=== PATIENT | female | born 1935 | race Caucasian/White ===

== ENCOUNTER 2018-09-17 16:30 | Inpatient (IN) ==
[2018-09-17 17:05] LABS: Basophils % 0.4 % (0.1-2.0); Eosinophils # 0.1 K/mm3 (0.0-0.4); Hematocrit 33.4 % (37.0-47.0); Hemoglobin 10.6 g/dL (12.2-16.2); Lymphocytes # 0.8 K/mm3 (0.7-4.5); Lymphocytes % 10.2 % (10-50); Mean Corpuscular HGB Conc 31.8 g/dL (31.8-35.4); Mean Corpuscular Hemoglobin 30.7 pg (27.0-31.2); Mean Corpuscular Volume 96.5 fl (81-99); Mean Platelet Volume 7.5 fl (7.4-10.4); Monocytes # 0.7 K/mm3 (0.1-1.0); Monocytes % 9.5 % (1.7-9.3); Neutrophils # 5.9 K/mm3 (1.8-7.8); Neutrophils % 78.7 % (37.0-80.0); Platelet Count 204 K/mm3 (142-424); Red Blood Count 3.46 M/mm3 (4.20-5.40); Red Cell Distribution Width 14.2 % (11.5-17.5); White Blood Count 7.5 K/mm3 (4.8-10.8)
--- NOTE | 2018-09-17 17:15 | Emergency Department Note ---
ED Disposition Clinical Impression: Pneumonia, Altered mental status Disposition: Admitted as Observation Condition on Discharge: Good Instructions: DI for Altered Mental Status Referrals: Ramesh Nix MD [Primary Care Provider] - Time of Disposition: 17:49 - Critical Care Critical Care Time: No Attestation: On 09/17/18, the high probability of a clinically significant, sudden or life threatening deterioration of the following system(s) required my full and direct attention, intervention and personal management. The time I documented below is in addition to time spent performing reported procedures but includes the following listed in this critical care notation. Medical Decision Making - Darci Inquiry Pt receiving controlled substance: No Darci was queried for this patient: No Vital Signs: 09/17/18 16:32 09/17/18 17:28 09/17/18 17:33 Temperature 102.6 F H Temperature Source Rectal Pulse Rate [Right Radial] 82 80 Respiratory Rate 20 Blood Pressure [Right Arm] 130/61 110/60 Blood Pressure Mean [Right Arm] 84 76 Blood Pressure Source [Right Arm] Automatic Cuff Blood Pressure Position [Right Arm] Supine 02 Sat by Pulse Oximetry 94 L 90 L - Lab Data Lab Results 09/17/18 16:30: WBC 7.5, RBC 3.46 L, Hgb 10.6 L, Hct 33.4 L, MCV 96.5, MCH 30.7, MCHC 31.8, RDW 14.2, Plt Count 204, MPV 7.5, Neut % (Auto) 78.7, Lymph % (Auto) 10.2, [place] % (Auto) 9.5 H, Eos % (Auto) 1.0, Baso % (Auto) 0.4, Neut # (Auto) 5.9, Lymph # (Auto) 0.8, [place] # (Auto) 0.7, Eos # (Auto) 0.1, Baso # (Auto) 0.0 09/17/18 16:30: Sodium 143, Potassium 4.5, Chloride 110 H, Carbon Dioxide 25, Anion Gap 12.5, BUN 19 H, Creatinine 1.61 H, Estimated Creat Clear 37, Estimated GFR 30 L, Est GFR ( Amer) 37 L, Glucose 109 H, Calcium 9.8, Total Bilirubin 0.3, AST 12 L, ALT 12, Alkaline Phosphatase 134 H, Total Protein 5.9 L , Albumin 2.7 L, Globulin 3.2, Albumin/Globulin Ratio 0.8 L 09/17/18 16:30: B-Natriuretic Peptide 436 H 09/17/18 16:30: Lactate 0.8 09/17/18 17:32: Urine Color Yellow, Urine Appearance Clear, Urine pH 6.0, Ur Specific [place] 1.020, Urine Protein Negative, Urine Glucose (UA) Negative, Urine Ketones Negative, Urine Blood Negative, Urine Nitrate Negative, Urine Bilirubin Negative, Urine Urobilinogen 0.2, Ur Leukocyte Esterase Trace Result diagrams: 09/17/18 16:30 09/17/18 16:30 Orders (Tests/Meds): ED MEDICATIONS Generic Name Dose Route Start Last Admin Trade Name Freq PRN Reason Stop Dose Admin Ceftriaxone Sodium 2 gm/ 50 mls @ 100 mls/hr 09/17/18 17:30 09/17/18 17:30 Sodium Chloride IV 10/01/18 17:29 100 mls/hr Q24H BRENNA Administration Protocol Sodium Chloride 10 ml 09/17/18 16:41 Saline Flush 10ml Syringe IV 10/17/18 16:40 NEEDED PRN Maintain IV Site Discontinued Medications Generic Name Dose Route Start Last Admin Trade Name Freq PRN Reason Stop Dose Admin Acetaminophen 650 mg 09/17/18 17:08 09/17/18 17:15 Acetaminophen 325mg Tab PO 09/17/18 17:09 650 mg ONCE ONE Administration Albuterol/Ipratropium 3 ml 09/17/18 17:28 09/17/18 17:46 Duoneb 3ml Neb IH 09/17/18 17:29 3 ml ONCE ONE Administration Azithromycin 500 mg 09/17/18 17:20 Zithromax 250mg Tablet PO 09/17/18 17:21 ONCE ONE Protocol Methylprednisolone Sodium Succinate 125 mg 09/17/18 17:28 Solu-Medrol 125mg/2ml Vial IV 09/17/18 17:29 ONCE ONE ORDERS Category Date Time Status Influenza A&B Antigens, Rapid [Rapid Influenza A&B Lab 09/17/18 17:17 Ordered Antigens] Stat UA [Urinalysis and Microscopic] Stat Lab 09/17/18 17:32 Ordered Blood Culture Stat Micro 09/17/18 16:30 Received ECG Request by /Nse Stat Y 09/17/18 16:41 Ordered General Adult HPI - General Chief complaint: Altered Mental Status Stated complaint: AMS Time Seen by Provider: 09/17/18 16:32 Mode of Arrival: EMS Limitations: Altered Mental Status Description of Symptoms (Recalled from ER Triage Doc. by RN): EMS stated that per [facility] living, patient was found to be 80% saturation on room air this morning (doesn't usually wear o2), is somewhat confused, and has increased edema in all extremities. Pt is oriented to person only and states that she is no pain at this time and has no complaints. Pt's O2 saturation was 86% on RA upon arrival, placed on 2L NC and she is now 93%. - History of Present Illness HPI narrative: fever, indicators of systemic infection, patient actually has no complaints - Related Data Home Medications Medication Instructions Recorded Confirmed acetaminophen 325 mg tablet 325 mg PO Q4-6H PRN 12/14/17 06/28/18 aspirin 81 mg tablet,delayed 81 mg PO DAILY tab 12/14/17 09/17/18 release atorvastatin 20 mg tablet 20 mg PO HS 30 Days #30 12/14/17 09/17/18 cholecalciferol (vitamin D3) 2,000 2,000 unit PO DAILY cap 12/14/17 09/17/18 unit capsule doxazosin 2 mg tablet 2 mg PO HS 30 Days #30 12/14/17 09/17/18 lansoprazole 15 mg capsule,delayed 15 mg PO DAILY 30 Days #30 12/14/17 09/17/18 release losartan 100 mg tablet 100 mg PO DAILY 30 Days #30 12/14/17 09/17/18 memantine 28 mg capsule 28 mg PO DAILY 30 Days #30 12/14/17 09/17/18 sprinkle,extended release 24hr nadolol 40 mg tablet 40 mg PO DAILY 30 Days #30 12/14/17 09/17/18 polyethylene glycol 3350 17 17 g PO Q10M 12/14/17 09/17/18 gram/dose oral powder potassium chloride ER 10 mEq 10 meq PO DAILY 14 Days #14 12/14/17 09/17/18 tablet,extended release Allergies Allergy/AdvReac Type Severity Reaction Status Date / Time Penicillins [PENICILLINS] Allergy Mild Verified 09/17/18 17:15 [facility] History - Hepatitis A Screen Drug use history?: No High risk sexual behaviors?: No History of sexually transmitted infection?: No Currently employed?: No Childcare worker?: No Do you have indoor plumbing?: No Do you have electricity?: Yes Attestation statement:: This patient has been screened for Hepatitis A risk factors. Medical History: Reports:: Arrhythmia, Cancer, Dementia, Hyperlipidemia, Hypertension, Internal Pacemaker, Urinary Tract Infection Other Medical History: Reports: Anemia, Arthritis, Cataracts Laterality Cases: Right: Lumpectomy, Bilateral: Other Other Surgeries: Yes: Pacemaker, Other Amputation: No Fractures: No - Social History Smoking Status: Never smoker Alcohol Intake: never Alcohol Intake Frequency:: other Substance Use Type: denies use Occupational Status: retired Housing: [facility] Family Hx:: Hyperlipidemia, Hypertension ROS Obtained: Yes All systems reviewed & no additional complaints - Constitutional Constitutional: Reports system reviewed and no additional complaints, except as docu, Reports chills, Denies fever(s), Denies lethargy, Denies weakness - Eyes Eyes: Reports system reviewed and no additional complaints, except as docu, Denies eye pain - ENT Ears, Nose, Mouth, and Throat: Reports system reviewed and no additional complaints, except as docu, Reports sore throat, Reports throat swelling - Cardiovascular Cardiovascular: Reports system reviewed and no additional complaints, except as docu, Denies chest pain, Denies chest pain at rest, Denies dyspnea, Denies pedal edema, Denies rapid heart rate, Denies slow heart rate - Respiratory Respiratory: Yes system reviewed and no additional complaints, except as docu, No chest congestion, No cough, No non-productive cough - Gastrointestinal Gastrointestingal: Denies: abdominal pain, diarrhea, nausea, vomiting - Genitourinary Female Genitourinary: Reports system reviewed and no additional complaints, except as docu, Denies dysuria, Denies flank pain - Musculoskeletal Musculoskeletal: Reports system reviewed and no additional complaints, except as docu, Denies joint pain, Denies joint swelling, Denies muscle weakness, Denies stiffness - Integumentary/Breasts Skin/Breast: Reports system reviewed and no additional complaints, except as docu, Denies rash, Denies skin pain, Reports skin swelling - Neurologic Neurologic: Reports system reviewed and no additional complaints, except as docu, Denies behavioral changes, Denies headache(s), Denies lack of coordination, Denies numbness, Denies other visual disturbances, Denies seizure- like activity, Denies syncope - Hematologic/Lymphatic Henatologic/Lymphatic: Reports system reviewed and no additional complaints, except as docu, Denies easy bleeding, Denies easy bruising, Denies lymphadenopathy Physical Exam - General General appearance: alert, in no apparent distress - Head Head exam: atraumatic, normocephalic, normal inspection - Eye Eye exam: Present: normal appearance, PERRL, EOMI - ENT ENT exam: Present: normal exam, normal oropharynx, mucous membranes moist, TM's normal bilaterally, normal external ear exam - Neck Neck exam: Present: normal inspection, full ROM, trachea midline. Absent: meningismus, lymphadenopathy - Chest Chest inspection: Present: normal inspection, symmetric chest wall rise. Absent: tenderness, rash - Respiratory Respiratory exam: Present: wheezes, other (rhonchi in bases, L greater than R). Absent: normal lung sounds bilaterally, respiratory distress - Cardiovascular Cardiovascular exam: Present: regular rate, normal rhythm, +S2. Absent: JVD - Abdominal Exam Abdominal exam: Present: soft. Absent: distention, tenderness, guarding, rebound, rigidity, ascites, mass - Extremities Exam Extremities exam: Present: full ROM, pedal edema. Absent: normal inspection, tenderness, normal capillary refill, joint swelling, calf tenderness - Neurological Exam Neurological exam: Present: alert, oriented X3 - Skin Skin exam: Present: warm, dry, intact, normal color, other (2+ peripheral edema, pitting) - Lymphatic Lymphatic Findings: no adenopathy
[2018-09-17 17:17] LABS: Albumin Level 2.7 gm/dL (3.4-5.0); Albumin/Globulin Ratio 0.8 (1.1-1.8); Anion Gap 12.5 mEq/L (5-15); Bilirubin,Total 0.3 mg/dL (0.2-1.0); Calcium 9.8 mg/dL (8.5-10.1); Globulin 3.2 gm/dl (1.3-3.2); Potassium 4.5 mmoL/L (3.5-5.1); Total Protein,Serum 5.9 gm/dL (6.4-8.2)
[2018-09-17 17:42] LABS: Appearance,Urine CLEAR (Clear); Bilirubin,Urine Negative (Negative); Blood, Urine Negative (Negative); Color,Urine YELLOW (Yellow); Glucose,Urine (UA) Negative (Negative); Ketones,Urine Negative (Negative); Leukocyte Esterase,Urine TRACE (Negative); Microscopic, Urine URINE MICROSCOPIC (MICROSCOPIC); Protein,Urine Negative (Negative); Urobilinogen,Urine 0.2 EU/dl (0.2)
[2018-09-17 17:53] LABS: Bacteria,Urine Trace /lpf
[2018-09-18 06:13] LABS: Basophils % 0.1 % (0.1-2.0); Hemoglobin 10.6 g/dL (12.2-16.2); Lymphocytes # 0.7 K/mm3 (0.7-4.5); Lymphocytes % 8.1 % (10-50); Mean Corpuscular HGB Conc 30.5 g/dL (31.8-35.4); Mean Corpuscular Hemoglobin 30.2 pg (27.0-31.2); Mean Corpuscular Volume 99.1 fl (81-99); Mean Platelet Volume 7.4 fl (7.4-10.4); Monocytes # 0.3 K/mm3 (0.1-1.0); Monocytes % 3.4 % (1.7-9.3); Neutrophils # 7.2 K/mm3 (1.8-7.8); Neutrophils % 88.3 % (37.0-80.0); Platelet Count 205 K/mm3 (142-424); Red Blood Count 3.53 M/mm3 (4.20-5.40); Red Cell Distribution Width 14.1 % (11.5-17.5); White Blood Count 8.1 K/mm3 (4.8-10.8)
[2018-09-18 06:47] LABS: Anion Gap 11.9 mEq/L (5-15); Calcium 9.4 mg/dL (8.5-10.1); Potassium 4.9 mmoL/L (3.5-5.1)
--- NOTE | 2018-09-18 07:37 | Pharmacy Consult Notes ---
[facility] Pharmacy VTE Monitoring - Patient Demographics Admission date: 09/17/18 Report Date: 09/18/18 Time: 07:37 Allergies/Adverse Reactions: Patient Allergies Penicillins [PENICILLINS] Allergy (Mild, Verified 09/17/18 17:15) Height: 1.63 m Weight: 92 kg Patient Problems: Current Active Problems Pneumonia (Acute) Altered mental status (Acute) - VTE Risk Labs: VTE Related Lab Results Hgb 10.6 g/dL (12.2-16.2) L 09/18/18 05:35 Hct 35.0 % (37.0-47.0) L 09/18/18 05:35 Plt Count 205 K/mm3 (142-424) 09/18/18 05:35 BUN 19 mg/dL (7-18) H 09/18/18 05:35 Creatinine 1.50 mg/dL (0.55-1.02) H 09/18/18 05:35 Estimated Creat Clear 40 mL/min (50-200) 09/18/18 05:35 Was VTE Risk Assessment Performed: Yes VTE Score: 3 VTE Risk Level: Low Risk - Prophylaxis VTE Prophylaxis Ordered?: Yes Types of VTE Prophylaxis: TEDS Knee High Location of Applied Device: Bilateral Lower Extremeties - VTE Diagnosis Confirmed Treatment or plan recommended: Continue Current Treatment
[2018-09-18 07:49] LABS: Lymphocytes % 7 % (10-50); Monocytes % 3 % (2-9); Neutrophils % 89 % (42-76); Total Cells Counted 100
--- NOTE | 2018-09-18 09:41 | History & Physical Report ---
*Admission Date: 09/17/18 *Chief complaint: Hypoxia with altered mental status *History of present illness: Ms. Carrera is an 83-year-old female who is a resident of assisted living at [place] who was sent to [facility] emergency room when found to have O2 sats low in the 80s on room air and with altered mental status. Patient had fallen out of bed earlier in the day and denied any discomfort or injury. O2 sats improved to 93% in the emergency room on oxygen. With evaluation in the emergency room patient was felt to have pneumonia and was admitted for further evaluation and treatment. This a.m. patient denies chest pain, shortness of breath, and cough. She answers no to all questions asked. Patient noted to have had a fever and wheezing through out the night. O2 sats have been satisfactory on nasal O2 at 2 L/min [facility] History Medical History: Reports:: Arrhythmia, Cancer (Breast), Dementia, Gastroesophageal Reflux Disease(GERD), Hyperlipidemia, Hypertension, Internal Pacemaker, Peripheral Vascular Disease, Renal Insufficiency, Urinary Tract Infection Denies:: Diabetes Mellitus Type 2 Have you ever received a pneumonia vaccine?: Yes Have you received a flu vaccine this season?: Yes Other Medical History: Reports: Anemia, Arthritis, Cataracts Comment:: DVT bilateral legs; Goiter Laterality Cases: Right: Lumpectomy, Bilateral: Cataract, Other Other Surgeries: Yes: Cholecystectomy, Colonoscopy, Pacemaker, Other Amputation: No Fractures: No - *Social History Educational Level: Completed Graduate School Smoking Status: Never smoker Alcohol Intake: never Alcohol Intake Frequency:: other Substance Use Type: denies use Occupational Status: retired Housing: assisted living facility Household Members: caregiver, other Travel in the last 8 weeks: None - Psychiatric History Expresses thoughts of harming self/others: None Suicide Plan Description: No Plan *Family Hx:: Hyperlipidemia, Hypertension Review of Systems - Constitutional Reports fever(s), Denies headache(s) - ENT Denies ear pain, Denies sore throat - *Cardiovascular Denies chest pain, Denies leg pain with activity, Denies shortness of breath, Denies generalized swelling - *Respiratory Reports cough, Denies chest congestion, Denies shortness of breath - *Gastrointestinal Denies abdominal pain, Denies nausea, Denies vomiting - *Genitourinary Denies difficulty urinating - *Musculoskeletal Denies abnormal walking Comments: Fell out of bed yesterday a.m. - *Neurologic Reports frequent falls, Denies abnormal speech, Denies behavioral changes, Denies dizziness, Denies headache(s), Denies lack of coordination, Denies numbness, Denies other visual disturbances, Denies seizure-like activity, Denies fainting, Denies weakness Meds Home Medications Medication Instructions Recorded Confirmed Type acetaminophen 325 mg tablet 650 mg PO Q4HP PRN 12/14/17 09/18/18 History atorvastatin 20 mg tablet 20 mg PO HS 30 Days #30 12/14/17 09/17/18 History cholecalciferol (vitamin D3) 2,000 2,000 unit PO DAILY cap 12/14/17 09/17/18 History unit capsule doxazosin 2 mg tablet 2 mg PO HS 30 Days #30 12/14/17 09/17/18 History lansoprazole 15 mg capsule,delayed 15 mg PO DAILY 30 Days #30 12/14/17 09/17/18 History release losartan 100 mg tablet 100 mg PO DAILY 30 Days #30 12/14/17 09/17/18 History memantine 28 mg capsule 28 mg PO DAILY 30 Days #30 12/14/17 09/17/18 History sprinkle,extended release 24hr nadolol 40 mg tablet 40 mg PO DAILY 30 Days #30 12/14/17 09/17/18 History polyethylene glycol 3350 17 17 gm PO DAILY 12/14/17 09/18/18 History gram/dose oral powder potassium chloride ER 10 mEq 10 meq PO DAILY 14 Days #14 12/14/17 09/17/18 History tablet,extended release Ferrous Sulfate [Ferrous Sulfate 325 mg PO DAILY 09/17/18 09/17/18 History 325mg Tablet] Aspirin [Aspirin 325mg Tab] 325 mg PO HS 09/18/18 09/18/18 History Melatonin/Pyridoxine HCl (B6) 1 each PO HSP PRN 09/18/18 09/18/18 History [Melatonin 1 mg Tablet] Ondansetron HCl [Ondansetron 4mg 4 mg PO Q8HP PRN 09/18/18 09/18/18 History Tablet] Allergies Allergy/AdvReac Type Severity Reaction Status Date / Time Penicillins [PENICILLINS] Allergy Mild Verified 09/17/18 17:15 Exam Vital signs and Labs for Last 24 Hours: Temp Pulse Resp BP Pulse Ox 97.9 F 70 18 146/76 H 93 L 09/18/18 08:00 09/18/18 08:00 09/18/18 08:00 09/18/18 08:00 09/18/18 08:00 Laboratory Results - last 24 hr 09/17/18 16:30: WBC 7.5, RBC 3.46 L, Hgb 10.6 L, Hct 33.4 L, MCV 96.5, MCH 30.7, MCHC 31.8, RDW 14.2, Plt Count 204, MPV 7.5, Neut % (Auto) 78.7, Lymph % (Auto) 10.2, [place] % (Auto) 9.5 H, Eos % (Auto) 1.0, Baso % (Auto) 0.4, Neut # (Auto) 5.9, Lymph # (Auto) 0.8, [place] # (Auto) 0.7, Eos # (Auto) 0.1, Baso # (Auto) 0.0 09/17/18 16:30: Sodium 143, Potassium 4.5, Chloride 110 H, Carbon Dioxide 25, Anion Gap 12.5, BUN 19 H, Creatinine 1.61 H, Estimated Creat Clear 37, Estimated GFR 30 L, Est GFR ( Amer) 37 L, Glucose 109 H, Calcium 9.8, Total Bilirubin 0.3, AST 12 L, ALT 12, Alkaline Phosphatase 134 H, Total Protein 5.9 L , Albumin 2.7 L, Globulin 3.2, Albumin/Globulin Ratio 0.8 L 09/17/18 16:30: B-Natriuretic Peptide 436 H 09/17/18 16:30: Lactate 0.8 09/17/18 17:32: Urine Color Yellow, Urine Appearance Clear, Urine pH 6.0, Ur Specific [place] 1.020, Urine Protein Negative, Urine Glucose (UA) Negative, Urine Ketones Negative, Urine Blood Negative, Urine Nitrate Negative, Urine Bilirubin Negative, Urine Urobilinogen 0.2, Ur Leukocyte Esterase Trace, Urine RBC None, Urine WBC 5-10, Ur Squamous Epith Cells 5-10, Urine Bacteria Trace 09/17/18 23:40: Influenza Type A Ag Negative, Influenza Type B Ag Negative 09/18/18 05:35: WBC 8.1, RBC 3.53 L, Hgb 10.6 L, Hct 35.0 L, MCV 99.1 H, MCH 30.2, MCHC 30.5 L, RDW 14.1, Plt Count 205, MPV 7.4, Neut % (Auto) 88.3 H, Lymph % (Auto) 8.1 L, [place] % (Auto) 3.4, Eos % (Auto) 0.0 L, Baso % (Auto) 0.1, Neut # (Auto) 7.2, Lymph # (Auto) 0.7, [place] # (Auto) 0.3, Eos # (Auto) 0.0, Baso # (Auto) 0.0, Total Counted 100, Neutrophils % (Manual) 89 H, Band Neutrophils % 1.0, Lymphocytes % (Manual) 7 L, Monocytes % (Manual) 3, Platelet Estimate Normal 09/18/18 05:35: Sodium 144, Potassium 4.9, Chloride 112 H, Carbon Dioxide 25, Anion Gap 11.9, BUN 19 H, Creatinine 1.50 H, Estimated Creat Clear 40, Estimated GFR 33 L, Est GFR ( Amer) 40 L, Glucose 150 H D, Calcium 9.4 I & O for Last 24 hours: Intake & Output 09/15/18 09/16/18 09/17/18 09/18/18 11:59 11:59 11:59 11:59 Intake Total 240 / 240 Output Total 450 / 450 Balance -210 / -210 Weight 202 lb 13.204 oz Radiology Reports for the Last 24 Hours: 09/17/2018 chest x-ray IMPRESSION: Low lung volumes with chronic changes with patchy atelectasis or infiltrate in the left lung base - Constitutional no acute distress Comments: Wearing oxygen and appears comfortable. Rare congested cough - *Routine HEENT Exam Head: Present: normocephalic, atraumatic Eye: Present: PERRL. Absent: conjunctival icterus, scleral injection ENT: Present: mucous membranes moist, oropharynx clear - *Routine Neck Exam Present: thyromegaly (Left goiter with tracheal deviation), tracheal deviation. Absent: carotid bruit, lymphadenopathy - *Routine Respiratory Exam Present: rhonchi, wheezes, crackles Comments: Bilateral expiratory wheezing greater on the right; bilateral rhonchi - *Routine Cardiovascular Exam Present: RRR - *Routine Abdominal Exam Present: soft, normoactive bowel sounds. Absent: tenderness, distended - *Routine Exam Comments: Patient has Monahan catheter - *Routine Extremities Exam Present: edema (Left leg larger than the right with increase in edema.), full ROM (Passive range of motion without pain. Active range of motion of right and left leg.), pulses intact. Absent: calf tenderness - *Routine Neurological Exam Present: alert, moving all extremities, normal speech Patient very pleasant. Does not recall events of the past few days. Answers no to all he has/no questions. Cannot recall what she had for breakfast this morning Assessment and Plan (1) Altered mental status Current visit: Yes Status: Acute Category: Medical Code(s): R41.82 - Altered mental status, unspecified (2) Hypoxia Current visit: Yes Status: Acute Category: Medical Code(s): R09.02 - Hypoxemia (3) Goiter Current visit: Yes Status: Chronic Category: Medical Code(s): E04.9 - Nontoxic goiter, unspecified (4) History of breast cancer Current visit: Yes Status: Chronic Category: Medical Code(s): Z85.3 - Personal history of malignant neoplasm of breast (5) Hypertension Current visit: Yes Status: Chronic Category: Medical Code(s): I10 - Essential (primary) hypertension (6) Memory loss Current visit: Yes Status: Chronic Category: Medical Code(s): R41.3 - Other amnesia (7) Chronic kidney failure Current visit: Yes Status: Chronic Category: Medical Code(s): N18.9 - Chronic kidney disease, unspecified (8) History of DVT of lower extremity Current visit: Yes Status: Acute Category: Medical Code(s): Z86.718 - Personal history of other venous thrombosis and embolism (9) Anemia Current visit: Yes Status: Chronic Category: Medical Code(s): D64.9 - Anemia, unspecified (10) GERD (gastroesophageal reflux disease) Current visit: Yes Status: Chronic Category: Medical Code(s): K21.9 - Gastro-esophageal reflux disease without esophagitis - Assessment and plan all Dx Assessment and Plan for all problems:: Continue with Zithromax and Rocephin. Will start duo nebs and low dose of Solu- Medrol for her wheezing. We will continue with home meds. Will obtain x-rays of the left knee and left ankle as well as a venous Doppler study of the left lower extremity.
--- NOTE | 2018-09-18 09:44 | Non-Invasive Vascular Report ---
"Venous Exam Indications: 729.81 Swelling of limb. IMPRESSIONS 1. Deep vein thrombosis involving the left distal femoral vein, left popliteal vein, Left gastrocnemius, and Left soleal 2. Superficial vein thrombosis involving the left great saphenous vein History: Edema of the left leg. Dyspnea. PMH: Deep vein thrombosis. Risk factors: Hypertension. Obese. Recent trauma. Fell from bed recently. Left lower extremity venous duplex evaluation. Doppler flow study including spectral analysis, color and rivera scale imaging. Location: Bedside. Patient status: Inpatient. Tables: Venous flow and imaging: + + + + |Location |Overall |Flow properties | + + + + |Left common femoral |Patent |Normal phasicity; | | | |spontaneous; normal | | | |augmentation; compressible| + + + + |Left saphenofemoral |Patent |Compressible | |junction | | | + + + + |Left profunda femoral |Patent |Compressible | + + + + |Left femoral |Partially occluded|Normal phasicity; | | | |spontaneous; normal | | | |augmentation; partially | | | |compressible | + + + + |Left greater saphenous |Partially occluded|Partially compressible | + + + + |Left popliteal |Patent |Normal phasicity ; | | | |spontaneous; normal | | | |augmentation; compressible| + + + + |Left posterior tibial |Patent |Compressible | + + + + |Left peroneal |Patent |Compressible | + + + + |Left gastrocnemius |Totally occluded |Noncompressible | + + + + |Left soleal |Totally occluded |Noncompressible | + + + + (Report amended ) Electronically signed by: Stevie Parker [id number]"
--- NOTE | 2018-09-19 08:08 | Progress Note ---
Internal Medicine - PN: Subj Interval history: Patient states she slept like she always sleeps. She states she has a cough but denies shortness of breath. She also denies chest pain, nausea, and any other pain. She has been up to the bedside commode. Bowels have moved. She denies leg pain as well. Patient had venous Doppler study of the left lower extremity which showed DVT as follows: IMPRESSIONS 1. Deep vein thrombosis involving the left distal femoral vein, left popliteal vein, Left gastrocnemius, and Left soleal 2. Superficial vein thrombosis involving the left great saphenous vein Exam Vital signs and Labs for Last 24 Hours: Temp Pulse Resp BP Pulse Ox 99.0 F 68 18 151/68 H 91 L 09/19/18 04:00 09/19/18 06:01 09/19/18 04:00 09/19/18 04:00 09/19/18 06:01 I & O for Last 24 hours: Intake & Output 09/16/18 09/17/18 09/18/18 09/19/18 11:59 11:59 11:59 11:59 Intake Total 240 / 240 480 / 480 Output Total 450 / 450 600 / 600 Balance -210 / -210 -120 / -120 Weight 202 lb 13.204 oz Radiology Reports for the Last 24 Hours: 09/18/2018 x-ray of the left ankle IMPRESSION: No acute finding 09/18/2018 x-ray of the left knee IMPRESSION: Osteoarthritis with chondrocalcinosis 09/18/2018 when his Doppler study of the left lower extremity IMPRESSIONS 1. Deep vein thrombosis involving the left distal femoral vein, left popliteal vein, Left gastrocnemius, and Left soleal 2. Superficial vein thrombosis involving the left great saphenous vein - Constitutional no acute distress Comments: Patient is just got back in bed from the bedside commode. She had no difficulty with this. She appears comfortable and is breathing easily. She has a periodic congested cough - *Routine Respiratory Exam Comments: Bilateral crackles and scattered wheezing. - *Routine Cardiovascular Exam Present: RRR - *Routine Abdominal Exam Present: soft, normoactive bowel sounds. Absent: tenderness, distended Comments: Monahan catheter patent and draining - *Routine Extremities Exam Comments: Left leg is larger than the right and has edema although somewhat improved.. There is trace edema in the right leg as well. - *Routine Neurological Exam Present: alert Assessment and Plan (1) Altered mental status Current visit: Yes Status: Acute Category: Medical Code(s): R41.82 - Altered mental status, unspecified (2) Hypoxia Current visit: Yes Status: Acute Category: Medical Code(s): R09.02 - Hypoxemia (3) Goiter Current visit: Yes Status: Chronic Category: Medical Code(s): E04.9 - Nontoxic goiter, unspecified (4) History of breast cancer Current visit: Yes Status: Chronic Category: Medical Code(s): Z85.3 - Personal history of malignant neoplasm of breast (5) Hypertension Current visit: Yes Status: Chronic Category: Medical Code(s): I10 - Essential (primary) hypertension (6) Memory loss Current visit: Yes Status: Chronic Category: Medical Code(s): R41.3 - Other amnesia (7) Chronic kidney failure Current visit: Yes Status: Chronic Category: Medical Code(s): N18.9 - Chronic kidney disease, unspecified (8) History of DVT of lower extremity Current visit: Yes Status: Acute Category: Medical Code(s): Z86.718 - Personal history of other venous thrombosis and embolism (9) Anemia Current visit: Yes Status: Chronic Category: Medical Code(s): D64.9 - Anemia, unspecified (10) GERD (gastroesophageal reflux disease) Current visit: Yes Status: Chronic Category: Medical Code(s): K21.9 - Gastro-esophageal reflux disease without esophagitis (11) Acute deep vein thrombosis (DVT) of left lower extremity Current visit: Yes Status: Acute Category: Medical Code(s): I82.402 - Acute embolism and thrombosis of unspecified deep veins of left lower extremity - Assessment and plan all Dx Assessment and Plan for all problems:: To continue with duo nebs, antibiotics, and steroids. Xarelto has been added. Will remove Monahan catheter today.
--- NOTE | 2018-09-20 08:21 | Progress Note ---
Internal Medicine - PN: Subj *Date: 09/20/18 *Time: 08:18 Interval history: Patient states she is still not feeling well. She states she coughed all night and is sore all over. She got about 2 hours of sleep last night. She states she did eat all of her breakfast this morning. Exam Vital signs and Labs for Last 24 Hours: Temp Pulse Resp BP Pulse Ox 97.9 F 58 L 18 153/69 H 92 L 09/20/18 07:17 09/20/18 07:17 09/20/18 07:17 09/20/18 07:17 09/20/18 07:17 I & O for Last 24 hours: Intake & Output 09/17/18 09/18/18 09/19/18 09/20/18 11:59 11:59 11:59 11:59 Intake Total 240 / 240 840 / 840 1552 / 1552 Output Total 450 / 450 600 / 600 100 / 100 Balance -210 / -210 240 / 240 1452 / 1452 Weight 202 lb 13.204 oz 202 lb 13.204 oz Microbiology Reports for the Last 24 Hours: Microbiology 09/19/18 14:02 Sputum - Expectorated Sputum Gram Stain - Final 09/19/18 14:02 Sputum - Expectorated Sputum Sputum Culture - Final 09/17/18 16:30 Blood Blood Culture - Preliminary NO GROWTH AFTER 48 HOURS 09/17/18 16:30 Blood Blood Culture - Preliminary NO GROWTH AFTER 48 HOURS - Constitutional no acute distress - *Routine Respiratory Exam Present: rales (bilaterally), rhonchi (scattered) - *Routine Cardiovascular Exam Present: RRR - *Routine Abdominal Exam Present: soft, normoactive bowel sounds. Absent: tenderness - *Routine Extremities Exam Present: edema (bilateral LE's but worse on the left side) Assessment and Plan (1) Altered mental status Current visit: Yes Status: Acute Category: Medical Code(s): R41.82 - Altered mental status, unspecified (2) Hypoxia Current visit: Yes Status: Acute Category: Medical Code(s): R09.02 - Hypoxemia (3) Goiter Current visit: Yes Status: Chronic Category: Medical Code(s): E04.9 - Nontoxic goiter, unspecified (4) History of breast cancer Current visit: Yes Status: Chronic Category: Medical Code(s): Z85.3 - Personal history of malignant neoplasm of breast (5) Hypertension Current visit: Yes Status: Chronic Category: Medical Code(s): I10 - Essential (primary) hypertension (6) Memory loss Current visit: Yes Status: Chronic Category: Medical Code(s): R41.3 - Other amnesia (7) Chronic kidney failure Current visit: Yes Status: Chronic Category: Medical Code(s): N18.9 - Chronic kidney disease, unspecified (8) History of DVT of lower extremity Current visit: Yes Status: Acute Category: Medical Code(s): Z86.718 - Personal history of other venous thrombosis and embolism (9) Anemia Current visit: Yes Status: Chronic Category: Medical Code(s): D64.9 - Anemia, unspecified (10) GERD (gastroesophageal reflux disease) Current visit: Yes Status: Chronic Category: Medical Code(s): K21.9 - Gastro-esophageal reflux disease without esophagitis (11) Acute deep vein thrombosis (DVT) of left lower extremity Current visit: Yes Status: Acute Category: Medical Code(s): I82.402 - Acute embolism and thrombosis of unspecified deep veins of left lower extremity - Assessment and plan all Dx Assessment and Plan for all problems:: Will continue nebs, antibiotics, steroids, and Xarelto. Will discuss further care with Dr. Nix.
[2018-09-20 09:56] LABS: Eosinophils % 0.1 % (0.1-12.0); Hematocrit 34.8 % (37.0-47.0); Hemoglobin 10.6 g/dL (12.2-16.2); Lymphocytes # 0.6 K/mm3 (0.7-4.5); Mean Corpuscular HGB Conc 30.5 g/dL (31.8-35.4); Mean Corpuscular Hemoglobin 30.3 pg (27.0-31.2); Mean Corpuscular Volume 99.3 fl (81-99); Mean Platelet Volume 7.4 fl (7.4-10.4); Monocytes # 0.4 K/mm3 (0.1-1.0); Monocytes % 4.4 % (1.7-9.3); Neutrophils % 88.4 % (37.0-80.0); Platelet Count 244 K/mm3 (142-424); Red Blood Count 3.51 M/mm3 (4.20-5.40); Red Cell Distribution Width 14.1 % (11.5-17.5); White Blood Count 9.1 K/mm3 (4.8-10.8)
[2018-09-20 11:37] LABS: Lymphocytes % 6 % (10-50); Monocytes % 3 % (2-9); Neutrophils % 91 % (42-76); Total Cells Counted 100
[2018-09-20 11:38] LABS: Ovalocytes 1+
[2018-09-21 06:13] LABS: Anion Gap 9.4 mEq/L (5-15); Calcium 9.7 mg/dL (8.5-10.1); Potassium 4.4 mmoL/L (3.5-5.1)
--- NOTE | 2018-09-21 08:59 | Progress Note ---
Internal Medicine - PN: Subj *Date: 09/21/18 *Time: 08:56 Interval history: She feels much better today. We diuresed 10 pounds yesterday. She still has bilateral rales and some moist sounds. Chest x-ray is reviewed. There is atelectasis with questionable infiltrate and there was some cephalization and possible CHF yesterday which is not surprising. Exam Vital signs and Labs for Last 24 Hours: Temp Pulse Resp BP Pulse Ox 97.9 F 73 18 176/85 H 92 L 09/21/18 08:00 09/21/18 08:00 09/21/18 08:00 09/21/18 08:00 09/21/18 08:00 Laboratory Results - last 24 hr 09/20/18 09:35: WBC 9.1, RBC 3.51 L, Hgb 10.6 L, Hct 34.8 L, MCV 99.3 H, MCH 30.3, MCHC 30.5 L, RDW 14.1, Plt Count 244, MPV 7.4, Neut % (Auto) 88.4 H, Lymph % (Auto) 7.0 L, [place] % (Auto) 4.4, Eos % (Auto) 0.1, Baso % (Auto) 0.0 L, Neut # (Auto) 8.0 H, Lymph # (Auto) 0.6 L, [place] # (Auto) 0.4, Eos # (Auto) 0.0, Baso # (Auto) 0.0, Total Counted 100, Neutrophils % (Manual) 91 H, Lymphocytes % (Manual) 6 L, Monocytes % (Manual) 3, Platelet Estimate Normal, Ovalocytes 1+ 09/21/18 06:00: Sodium 143, Potassium 4.4, Chloride 110 H, Carbon Dioxide 28, Anion Gap 9.4, BUN 38 H, Creatinine 1.31 H, Estimated Creat Clear 45, Estimated GFR 39 L, Est GFR ( Amer) 47 L, Glucose 131 H, Calcium 9.7 I & O for Last 24 hours: Intake & Output 09/18/18 09/19/18 09/20/18 09/21/18 11:59 11:59 11:59 11:59 Intake Total 240 / 240 840 / 840 1911 / 1911 1320 / 1320 Output Total 450 / 450 600 / 600 500 / 500 400 / 400 Balance -210 / -210 240 / 240 1412 / 1412 920 / 920 Weight 202 lb 13.204 oz 202 lb 13.204 oz 200 lb 11.341 oz Microbiology Reports for the Last 24 Hours: Microbiology 09/21/18 06:49 Sputum - Expectorated Sputum Gram Stain - Final - Constitutional no acute distress - *Routine HEENT Exam Head: Present: normocephalic ENT: Present: mucous membranes moist - *Routine Respiratory Exam Comments: As described above. Good air movement but with moist rales. Better than yesterday. - *Routine Cardiovascular Exam Present: RRR - *Routine Abdominal Exam Present: soft. Absent: tenderness (Obese), mass - *Routine Extremities Exam Present: edema Comments: 3+ but improved. Assessment and Plan (1) Altered mental status Current visit: Yes Status: Acute Category: Medical Code(s): R41.82 - Altered mental status, unspecified (2) Hypoxia Current visit: Yes Status: Acute Category: Medical Code(s): R09.02 - Hypoxemia (3) Goiter Current visit: Yes Status: Chronic Category: Medical Code(s): E04.9 - Nontoxic goiter, unspecified (4) History of breast cancer Current visit: Yes Status: Chronic Category: Medical Code(s): Z85.3 - Personal history of malignant neoplasm of breast (5) Hypertension Current visit: Yes Status: Chronic Category: Medical Code(s): I10 - Essential (primary) hypertension (6) Memory loss Current visit: Yes Status: Chronic Category: Medical Code(s): R41.3 - Other amnesia (7) Chronic kidney failure Current visit: Yes Status: Chronic Category: Medical Code(s): N18.9 - Chronic kidney disease, unspecified (8) History of DVT of lower extremity Current visit: Yes Status: Acute Category: Medical Code(s): Z86.718 - Personal history of other venous thrombosis and embolism (9) Anemia Current visit: Yes Status: Chronic Category: Medical Code(s): D64.9 - Anemia, unspecified (10) GERD (gastroesophageal reflux disease) Current visit: Yes Status: Chronic Category: Medical Code(s): K21.9 - Gastro-esophageal reflux disease without esophagitis (11) Acute deep vein thrombosis (DVT) of left lower extremity Current visit: Yes Status: Acute Category: Medical Code(s): I82.402 - Acute embolism and thrombosis of unspecified deep veins of left lower extremity (12) Congestive heart failure (CHF) Current visit: Yes Status: Acute Category: Medical Code(s): I50.9 - Heart failure, unspecified - Assessment and plan all Dx Assessment and Plan for all problems:: Continue present regimen. We may be able to discharge her back to the nursing facility tomorrow.
--- NOTE | 2018-09-21 11:53 | Progress Note ---
Internal Medicine - PN: Subj *Date: 09/21/18 *Time: 11:52 Exam Vital signs and Labs for Last 24 Hours: Temp Pulse Resp BP Pulse Ox 97.9 F 73 18 176/85 H 88 L 09/21/18 08:00 09/21/18 08:00 09/21/18 08:00 09/21/18 08:00 09/21/18 10:04 Laboratory Results - last 24 hr 09/21/18 06:00: Sodium 143, Potassium 4.4, Chloride 110 H, Carbon Dioxide 28, Anion Gap 9.4, BUN 38 H, Creatinine 1.31 H, Estimated Creat Clear 45, Estimated GFR 39 L, Est GFR ( Amer) 47 L, Glucose 131 H, Calcium 9.7 I & O for Last 24 hours: Intake & Output 09/18/18 09/19/18 09/20/18 09/21/18 23:59 23:59 23:59 23:59 Intake Total 720 / 720 1912 / 1912 1200 / 1200 480 / 480 Output Total 800 / 800 350 / 350 800 / 800 Balance -80 / -80 1562 / 1562 400 / 400 480 / 480 Weight 92 kg 92 kg 91.04 kg Microbiology Reports for the Last 24 Hours: Microbiology 09/21/18 06:49 Sputum - Expectorated Sputum Gram Stain - Final Assessment and Plan (1) Altered mental status Current visit: Yes Status: Acute Category: Medical Code(s): R41.82 - Altered mental status, unspecified (2) Hypoxia Current visit: Yes Status: Acute Category: Medical Code(s): R09.02 - Hypoxemia (3) Goiter Current visit: Yes Status: Chronic Category: Medical Code(s): E04.9 - Nontoxic goiter, unspecified (4) History of breast cancer Current visit: Yes Status: Chronic Category: Medical Code(s): Z85.3 - Personal history of malignant neoplasm of breast (5) Hypertension Current visit: Yes Status: Chronic Category: Medical Code(s): I10 - Essential (primary) hypertension (6) Memory loss Current visit: Yes Status: Chronic Category: Medical Code(s): R41.3 - Other amnesia (7) Chronic kidney failure Current visit: Yes Status: Chronic Category: Medical Code(s): N18.9 - Chronic kidney disease, unspecified (8) History of DVT of lower extremity Current visit: Yes Status: Acute Category: Medical Code(s): Z86.718 - Personal history of other venous thrombosis and embolism (9) Anemia Current visit: Yes Status: Chronic Category: Medical Code(s): D64.9 - Anemia, unspecified (10) GERD (gastroesophageal reflux disease) Current visit: Yes Status: Chronic Category: Medical Code(s): K21.9 - Gastro-esophageal reflux disease without esophagitis (11) Acute deep vein thrombosis (DVT) of left lower extremity Current visit: Yes Status: Acute Category: Medical Code(s): I82.402 - Acute embolism and thrombosis of unspecified deep veins of left lower extremity (12) Congestive heart failure (CHF) Current visit: Yes Status: Acute Category: Medical Code(s): I50.9 - Heart failure, unspecified The patient's infection will respond to the chosen ABx?: Yes Is the patient receiving the right drug, dose, and route?: Yes Could a more targeted ABx be ordered?: No (SENSITIVITES NOT BACK)
--- NOTE | 2018-09-22 09:02 | Progress Note ---
Internal Medicine - PN: Subj *Date: 09/22/18 *Time: 08:59 Interval history: Each day she states"I think I need to stay 1 more day." She was not using oxygen prior to admission. We checked her oxygen saturation yesterday on room air and it was only 88%. Thus she will probably need nasal O2 when she returns to the nursing facility. On 03 20 she had edema and weight of 212 pounds. She was diuresed that day successfully with about 10 pounds coming off. Today she is 201. She is probably stable enough to return to the nursing facility. Exam Vital signs and Labs for Last 24 Hours: Temp Pulse Resp BP Pulse Ox 97.7 F 71 22 150/55 H 90 L 09/22/18 08:00 09/22/18 08:00 09/22/18 08:00 09/22/18 08:00 09/22/18 08:00 Laboratory Tests 09/17/18 09/18/18 09/21/18 16:30 05:35 06:00 Creatinine 1.61 H 1.50 H 1.31 H I & O for Last 24 hours: Intake & Output 09/19/18 09/20/18 09/21/18 09/22/18 11:59 11:59 11:59 11:59 Intake Total 840 / 840 1912 / 1912 1320 / 1320 240 / 240 Output Total 600 / 600 500 / 500 400 / 400 2370 / 2370 Balance 240 / 240 1412 / 1412 920 / 920 -2130 / -2130 Weight 202 lb 13.204 oz 200 lb 11.341 oz 201 lb 0.985 oz Microbiology Reports for the Last 24 Hours: Microbiology 09/21/18 06:49 Sputum - Expectorated Sputum Gram Stain - Final 09/21/18 06:49 Sputum - Expectorated Sputum Sputum Culture - Preliminary - Constitutional no acute distress - *Routine HEENT Exam Head: Present: normocephalic ENT: Present: mucous membranes moist, mucous membranes dry - *Routine Respiratory Exam Present: rales (Bas[place]). Absent: respiratory distress - *Routine Cardiovascular Exam Present: RRR - *Routine Abdominal Exam Present: soft (Obese) - *Routine Extremities Exam Present: edema (Still 3+ but less than yesterday.) - *Routine Neurological Exam Present: alert, oriented X3 Assessment and Plan (1) Altered mental status Current visit: Yes Status: Acute Category: Medical Code(s): R41.82 - Altered mental status, unspecified (2) Hypoxia Current visit: Yes Status: Acute Category: Medical Code(s): R09.02 - Hypoxemia (3) Acute deep vein thrombosis (DVT) of left lower extremity Current visit: Yes Status: Acute Category: Medical Code(s): I82.402 - Acute embolism and thrombosis of unspecified deep veins of left lower extremity (4) Chronic kidney failure Current visit: Yes Status: Chronic Category: Medical Code(s): N18.9 - Chronic kidney disease, unspecified (5) Goiter Current visit: Yes Status: Chronic Category: Medical Code(s): E04.9 - Nontoxic goiter, unspecified (6) History of breast cancer Current visit: Yes Status: Chronic Category: Medical Code(s): Z85.3 - Personal history of malignant neoplasm of breast (7) Congestive heart failure (CHF) Current visit: Yes Status: Acute Category: Medical Code(s): I50.9 - Heart failure, unspecified (8) Hypertension Current visit: Yes Status: Chronic Category: Medical Code(s): I10 - Essential (primary) hypertension (9) Memory loss Current visit: Yes Status: Chronic Category: Medical Code(s): R41.3 - Other amnesia (10) History of DVT of lower extremity Current visit: Yes Status: Acute Category: Medical Code(s): Z86.718 - Personal history of other venous thrombosis and embolism (11) Anemia Current visit: Yes Status: Chronic Category: Medical Code(s): D64.9 - Anemia, unspecified (12) GERD (gastroesophageal reflux disease) Current visit: Yes Status: Chronic Category: Medical Code(s): K21.9 - Gastro-esophageal reflux disease without esophagitis - Assessment and plan all Dx Assessment and Plan for all problems:: Possible discharge this afternoon. She will need nasal O2.
--- NOTE | 2018-09-22 13:48 | Discharge Summary ---
General - General Admission date:: 09/17/18 Discharge date: 09/22/18 HPI HPI: Ms. Carrera is an 83-year-old female who is a resident of assisted living at [facility] who was sent to [facility] emergency room when found to have O2 sats low in the 80s on room air and with altered mental status. Patient had fallen out of bed earlier in the day and denied any discomfort or injury. O2 sats improved to 93% in the emergency room on oxygen. With evaluation in the emergency room patient was felt to have pneumonia and was admitted for further evaluation and treatment. This a.m. patient denies chest pain, shortness of breath, and cough. She answers no to all questions asked. Patient noted to have had a fever and wheezing through out the night. O2 sats have been satisfactory on nasal O2 at 2 L/min Hospital Course Hospital Course: The patient's mental status seemed to improve fairly rapidly. She was found to have a DVT in the left lower extremity. Involving the femoral and saphenous veins. She was placed on Xarelto for this. She had significant edema and this had to be treated during her hospitalization. On the seventh she had gained 10 pounds overnight and this was diuresed with her becoming stable once again. She continued to have some rales and rhonchi throughout hospitalization but had improved by the time of discharge. Her white count was never really elevated th ough she did show some evidence of some infiltrate. At the time of discharge she was still on nasal oxygen. This will be continued in the care home. She will receive nebulizer treatments in the care home. See medication list. Patient [place] [facility] [place] [facility] [place] Objective Vital signs: Temp Pulse Resp BP Pulse Ox 98.4 F 70 22 125/53 L 94 L 09/22/18 12:16 09/22/18 12:16 09/22/18 12:16 09/22/18 12:16 09/22/18 12:16 no acute distress - *Routine HEENT Exam Eye: Present: PERRL ENT: Present: mucous membranes dry - *Routine Neck Exam Absent: lymphadenopathy - Routine Chest/Breast/Axilla Exam Breast: Absent: tenderness, swelling - *Routine Respiratory Exam Comments: Good air movement bilaterally. There are some bibasilar rales that are still present. She is in no respiratory distress. She maintains nasal O2 at 2 L - *Routine Cardiovascular Exam Present: RRR - *Routine Abdominal Exam Comments: Obese soft and nontender. No masses. - *Routine Extremities Exam Comments: 3+ edema. - *Routine Skin Exam Present: intact - *Routine Neurological Exam Present: alert, oriented X3 Results Completed studies during hospitalization [Text1]: Airspace disease most evident left lung base . LLL Infiltrate & atelectasis seen here . Suggestion Mild perihilar infiltrate on left as well Questionable minor infiltrate right infrahilar region.... Along with some areas of atelectasis right midlung & right lung base. Low lung volumes. Poor inspiration on today's film, accentuates markings but suspect there is mild cephalization, & mild vascular engorgement, with perhaps mild CHF Labs on day of discharge: Preliminary micro results at discharge 09/21/18 06:49 Sputum Culture - Preliminary Sputum - Expectorated Sputum 09/17/18 16:30 Blood Culture - Preliminary Blood NO GROWTH AFTER 48 HOURS 09/17/18 16:30 Blood Culture - Preliminary Blood NO GROWTH AFTER 48 HOURS DS: Diagnosis - Discharge Diagnosis (1) Altered mental status Status: Acute (2) Hypoxia Status: Acute (3) Acute deep vein thrombosis (DVT) of left lower extremity Status: Acute (4) Chronic kidney failure Status: Chronic (5) Goiter Status: Chronic (6) History of breast cancer Status: Chronic (7) Congestive heart failure (CHF) Status: Acute (8) Hypertension Status: Chronic (9) Memory loss Status: Chronic (10) History of DVT of lower extremity Status: Acute (11) Anemia Status: Chronic (12) GERD (gastroesophageal reflux disease) Status: Chronic Discharge Plan - Patient Discharge Instructions ACTIVITY: Continue current activity DIET: advance to your usual diet Patient Instructions: Pneumonia-Adult, Delirium, Pneumococcal Vaccine, DI for Pneumonia -- Adult, DI for Altered Mental Status - Follow up Plan Disposition: Xfer [facility] Home Medications: Home Medications Medication Instructions Recorded Confirmed Type acetaminophen 325 mg tablet 650 mg PO Q4HP PRN 12/14/17 09/18/18 History atorvastatin 20 mg tablet 20 mg PO HS 30 Days #30 12/14/17 09/17/18 History cholecalciferol (vitamin D3) 2,000 2,000 unit PO DAILY cap 12/14/17 09/17/18 History unit capsule doxazosin 2 mg tablet 2 mg PO HS 30 Days #30 12/14/17 09/17/18 History lansoprazole 15 mg capsule,delayed 15 mg PO DAILY 30 Days #30 12/14/17 09/17/18 History release losartan 100 mg tablet 100 mg PO DAILY 30 Days #30 12/14/17 09/17/18 History memantine 28 mg capsule 28 mg PO DAILY 30 Days #30 12/14/17 09/17/18 History sprinkle,extended release 24hr nadolol 40 mg tablet 40 mg PO DAILY 30 Days #30 12/14/17 09/17/18 History polyethylene glycol 3350 17 17 gm PO DAILY 12/14/17 09/18/18 History gram/dose oral powder potassium chloride ER 10 mEq 10 meq PO DAILY 14 Days #14 12/14/17 09/17/18 History tablet,extended release Ferrous Sulfate [Ferrous Sulfate 325 mg PO DAILY 09/17/18 09/17/18 History 325mg Tablet] Aspirin [Aspirin 325mg Tab] 325 mg PO HS 09/18/18 09/18/18 History Melatonin/Pyridoxine HCl (B6) 1 each PO HSP PRN 09/18/18 09/18/18 History [Melatonin 1 mg Tablet] Ondansetron HCl [Ondansetron 4mg 4 mg PO Q8HP PRN 09/18/18 09/18/18 History Tablet] Furosemide [Lasix 40mg tablet] 40 mg PO BIDL #60 tablet 09/22/18 Rx Rivaroxaban [Xarelto 15mg tablet] 15 mg PO BIDWM #60 tablet 09/22/18 Rx Prescriptions/Medication Reconciliation: New Furosemide [Lasix 40mg tablet] 40 mg PO BIDL #60 tablet Rivaroxaban [Xarelto 15mg tablet] 15 mg PO BIDWM #60 tablet Continue lansoprazole 15 mg capsule,delayed release 15 mg PO DAILY 30 Days #30 potassium chloride ER 10 mEq tablet,extended release 10 meq PO DAILY 14 Days #14 nadolol 40 mg tablet 40 mg PO DAILY 30 Days #30 atorvastatin 20 mg tablet 20 mg PO HS 30 Days #30 doxazosin 2 mg tablet 2 mg PO HS 30 Days #30 memantine 28 mg capsule sprinkle,extended release 24hr 28 mg PO DAILY 30 Days #30 polyethylene glycol 3350 17 gram/dose oral powder 17 gm PO DAILY cholecalciferol (vitamin D3) 2,000 unit capsule 2,000 unit PO DAILY cap acetaminophen 325 mg tablet 650 mg PO Q4HP PRN PRN Reason: pain losartan 100 mg tablet 100 mg PO DAILY 30 Days #30 Ferrous Sulfate [Ferrous Sulfate 325mg Tablet] 325 mg PO DAILY Aspirin [Aspirin 325mg Tab] 325 mg PO HS Melatonin/Pyridoxine HCl (B6) [Melatonin 1 mg Tablet] 1 each PO HSP PRN PRN Reason: Sleep Discontinued Ondansetron HCl [Ondansetron 4mg Tablet] 4 mg PO Q8HP PRN PRN Reason: Nausea - Additional Information Additional Information: The patient will be transferred to [facility] [place]. She will be followed there.
== END 2018-09-22 14:29 | DRG 194 ==
LOC: ER 16:30 → 2ND 18:56
PROVIDERS: ADMIT Emergency Medicine; ATTEND Family Medicine
CPT/HCPCS: 36415; 71010; 71020; 71045; 71046; 73562; 73610; 80048; 80053; 81001; 83605; 83880; 85007; 85025; 87040; 87070; 87205; 87275; 87276; 93005; 93971; 94640; 94761; 96365; 96375; 97116; 97161; 97530; 99285; J0456; J2405

== ENCOUNTER 2018-09-23 19:17 | Inpatient (IN) ==
[2018-09-23 19:40] LABS: Basophils % 0.1 % (0.1-2.0); Eosinophils % 0.3 % (0.1-12.0); Hemoglobin 9.1 g/dL (12.2-16.2); Lymphocytes # 1.2 K/mm3 (0.7-4.5); Lymphocytes % 8.7 % (10-50); Mean Corpuscular HGB Conc 32.2 g/dL (31.8-35.4); Mean Corpuscular Hemoglobin 30.4 pg (27.0-31.2); Mean Corpuscular Volume 94.6 fl (81-99); Mean Platelet Volume 7.4 fl (7.4-10.4); Monocytes # 1.3 K/mm3 (0.1-1.0); Neutrophils # 11.7 K/mm3 (1.8-7.8); Neutrophils % 81.9 % (37.0-80.0); Platelet Count 229 K/mm3 (142-424); Red Blood Count 2.99 M/mm3 (4.20-5.40); Red Cell Distribution Width 14.5 % (11.5-17.5); White Blood Count 14.2 K/mm3 (4.8-10.8)
[2018-09-23 19:45] LABS: Hematocrit 28.3 % (37.0-47.0)
[2018-09-23 19:55] LABS: Albumin Level 2.8 gm/dL (3.4-5.0); Albumin/Globulin Ratio 0.9 (1.1-1.8); Anion Gap 8.2 mEq/L (5-15); Bilirubin,Total 0.4 mg/dL (0.2-1.0); C-Reactive Protein 5.4 mg/L (0.0-0.9); Calcium 10.2 mg/dL (8.5-10.1); Globulin 3.1 gm/dl (1.3-3.2); Potassium 3.2 mmoL/L (3.5-5.1); Total Protein,Serum 5.9 gm/dL (6.4-8.2)
[2018-09-23 20:01] LABS: Appearance,Urine CLEAR (Clear); Bilirubin,Urine Negative (Negative); Blood, Urine 3+ (Negative); Color,Urine YELLOW (Yellow); Glucose,Urine (UA) Negative (Negative); Ketones,Urine Negative (Negative); Leukocyte Esterase,Urine Negative (Negative); Microscopic, Urine URINE MICROSCOPIC (MICROSCOPIC); Protein,Urine Negative (Negative); Specific Gravity, Urine <= 1.005 (1.005-1.030); Urobilinogen,Urine 0.2 EU/dl (0.2)
[2018-09-23 20:03] LABS: Amorphous Sediment,Urine Trace /lpf; RBC,Urine 20-50 #/hpf (0-3)
--- NOTE | 2018-09-23 20:22 | Emergency Department Note ---
ED Disposition Clinical Impression: Melena, Anticoagulant causing adverse effect in therapeutic use, Pneumonia, DVT (deep venous thrombosis) Disposition: Admitted as Observation Condition on Discharge: Good Instructions: DI for Gastrointestinal Bleeding Referrals: Ramesh Nix MD [Primary Care Provider] - Time of Disposition: 22:38 - Critical Care Critical Care Time: No Attestation: On 09/23/18, the high probability of a clinically significant, sudden or life threatening deterioration of the following system(s) required my full and direct attention, intervention and personal management. The time I documented below is in addition to time spent performing reported procedures but includes the following listed in this critical care notation. Medical Decision Making - Medical Records Medical records reviewed: Yes: I reviewed the patient's medical records. - Darci Inquiry Pt receiving controlled substance: No Darci was queried for this patient: No Vital Signs: 09/23/18 19:19 09/23/18 21:26 09/23/18 22:12 Temperature 100.4 F H 98.7 F Temperature Source Oral Oral Pulse Rate [Right Radial] 89 84 85 Respiratory Rate 18 12 14 Blood Pressure [Right Arm] 123/87 123/52 L 132/59 L Blood Pressure Mean [Right Arm] 99 75 83 Blood Pressure Source [Right Arm] Automatic Cuff Blood Pressure Position [Right Arm] Sitting 02 Sat by Pulse Oximetry 97 95 98 Oxygen Delivery Method Nasal Cannula Nasal Cannula Nasal Cannula Oxygen Flow Rate (LPM) 4 4 4 - Lab Data Lab Results 09/23/18 17:30: Stool Occult Blood Positive A 09/23/18 19:30: WBC 14.2 H, RBC 2.99 L, Hgb 9.1 L, Hct 28.3 L, MCV 94.6, MCH 30.4, MCHC 32.2, RDW 14.5, Plt Count 229, MPV 7.4, Neut % (Auto) 81.9 H, Lymph % (Auto) 8.7 L, [place] % (Auto) 9.0, Eos % (Auto) 0.3, Baso % (Auto) 0.1, Neut # (Auto) 11.7 H, Lymph # (Auto) 1.2, [place] # (Auto) 1.3 H, Eos # (Auto) 0.0, Baso # (Auto) 0.0 09/23/18 19:30: Sodium 144, Potassium 3.2 L D, Chloride 103, Carbon Dioxide 36 H D, Anion Gap 8.2, BUN 46 H, Creatinine 1.35 H, Estimated Creat Clear 38, Estimated GFR 37 L, Est GFR ( Amer) 45 L, Glucose 184 H, Calcium 10.2 H, Total Bilirubin 0.4, AST 602 H*, ALT 38, Alkaline Phosphatase 102, C-Reactive Protein 5.4 H, Total Protein 5.9 L, Albumin 2.8 L, Globulin 3.1, Albumin/Globulin Ratio 0.9 L 09/23/18 19:30: ESR 20 09/23/18 19:30: Lactate 1.6 09/23/18 19:37: Urine Color Yellow, Urine Appearance Clear, Urine pH 6.0, Ur Specific [place] <= 1.005, Urine Protein Negative, Urine Glucose (UA) Negative, Urine Ketones Negative, Urine Blood 3+, Urine Nitrate Negative, Urine Bilirubin Negative, Urine Urobilinogen 0.2, Ur Leukocyte Esterase Negative, Urine RBC 20- 50, Amorphous Sediment Trace 09/23/18 20:45: Blood Type B Positive, Antibody Screen Negative Result diagrams: 09/23/18 19:30 09/23/18 19:30 Orders (Tests/Meds): ED MEDICATIONS Generic Name Dose Route Start Last Admin Trade Name Freq PRN Reason Stop Dose Admin Sodium Chloride 10 ml 09/23/18 19:25 Saline Flush 10ml Syringe IV 10/23/18 19:24 NEEDED PRN Maintain IV Site Discontinued Medications Generic Name Dose Route Start Last Admin Trade Name Freq PRN Reason Stop Dose Admin Acetaminophen 1,000 mg 09/23/18 19:25 09/23/18 19:31 Tylenol 500mg Tablet PO 09/23/18 19:26 1,000 mg ONCE ONE Administration Sodium Chloride 1,000 mls @ 999 mls/hr 09/23/18 20:00 09/23/18 19:47 Sod Chlor 0.9% 1000ml Bag IV 09/23/18 21:00 999 mls/hr .Q1H1M BRENNA Administration Pantoprazole Sodium 40 mg 09/23/18 20:23 09/23/18 20:31 Protonix 40mg Vial IV 09/23/18 20:24 40 mg ONCE ONE Administration Sodium Chloride 8 ml 09/23/18 20:23 09/23/18 20:31 Saline Flush 10ml Syringe IV 09/23/18 20:24 8 ml ONCE ONE Administration ORDERS Category Date Time Status CT abdomen wo con Stat Cat Scan 09/23/18 20:12 Taken Occult Blood,Stool Stat Lab 09/23/18 17:30 Ordered Urinalysis and Microscopic Stat Lab 09/23/18 19:37 Ordered Blood Culture Stat Micro 09/23/18 19:30 Received GI Bleed HPI - General Chief complaint: GI Bleed Stated complaint: G.I. Bleed Time Seen by Provider: 09/23/18 20:19 Mode of Arrival: EMS Source of Information: Patient, Relative, EMS Limitations: Physical Limitations Description of Symptoms (Recalled from ER Triage Doc. by RN): pt reports black, tarry stools x2 days, pt not complaining of any pain, reports she just "has gen erally not felt well" - History of Present Illness Onset (ago): day(s) (1) Relieving factors: none Exacerbating factors: none Context: anticoagulant use Associated symptoms: denies other symptoms Treatments Prior to Arrival: none - Related Data Home Medications Medication Instructions Recorded Confirmed acetaminophen 325 mg tablet 650 mg PO Q4HP PRN 12/14/17 09/23/18 atorvastatin 20 mg tablet 20 mg PO HS 30 Days #30 12/14/17 09/23/18 cholecalciferol (vitamin D3) 2,000 2,000 unit PO DAILY cap 12/14/17 09/23/18 unit capsule doxazosin 2 mg tablet 2 mg PO HS 30 Days #30 12/14/17 09/23/18 lansoprazole 15 mg capsule,delayed 15 mg PO DAILY 30 Days #30 12/14/17 09/23/18 release losartan 100 mg tablet 100 mg PO DAILY 30 Days #30 12/14/17 09/23/18 memantine 28 mg capsule 28 mg PO DAILY 30 Days #30 12/14/17 09/23/18 sprinkle,extended release 24hr nadolol 40 mg tablet 40 mg PO DAILY 30 Days #30 12/14/17 09/23/18 polyethylene glycol 3350 17 17 gm PO DAILY 12/14/17 09/23/18 gram/dose oral powder potassium chloride ER 10 mEq 10 meq PO DAILY 14 Days #14 12/14/17 09/23/18 tablet,extended release Ferrous Sulfate [Ferrous Sulfate 325 mg PO DAILY 09/17/18 09/23/18 325mg Tablet] Aspirin [Aspirin 325mg Tab] 325 mg PO HS 09/18/18 09/23/18 Melatonin/Pyridoxine HCl (B6) 1 each PO HSP PRN 09/18/18 09/23/18 [Melatonin 1 mg Tablet] Furosemide [Lasix 40mg tablet] 40 mg PO BIDL 09/23/18 09/23/18 Ipratropium/Albuterol Sulfate 3 ml IH TIDRT 09/23/18 09/23/18 [Duoneb 3mL neb] Rivaroxaban [Xarelto 15mg tablet] 15 mg PO BIDWM 09/23/18 09/23/18 Allergies Allergy/AdvReac Type Severity Reaction Status Date / Time Penicillins [PENICILLINS] Allergy Mild Verified 09/17/18 17:15 [facility] History - Hepatitis A Screen Drug use history?: No High risk sexual behaviors?: No History of sexually transmitted infection?: No Currently employed?: No Childcare worker?: No Do you have indoor plumbing?: Yes Do you have electricity?: Yes Attestation statement:: This patient has been screened for Hepatitis A risk factors. Medical History: Reports:: Arrhythmia, Cancer (Breast), Dementia, Gastroesophageal Reflux Disease(GERD), Hyperlipidemia, Hypertension, Internal Pacemaker, Peripheral Vascular Disease, Renal Insufficiency, Urinary Tract Infection Denies:: Diabetes Mellitus Type 2 Other Medical History: Reports: Anemia, Arthritis, Cataracts Comment: DVT bilateral legs; Goiter Laterality Cases: Right: Lumpectomy, Bilateral: Other Other Surgeries: Yes: Cholecystectomy, Colonoscopy, Pacemaker, Other Amputation: No Fractures: No - Social History Smoking Status: Never smoker Alcohol Intake: never Alcohol Intake Frequency:: other Substance Use Type: denies use Occupational Status: retired Housing: assisted living facility Household Members: caregiver, other - Psychiatric History Expresses thoughts of harming self/others: None Suicide Plan Description: No Plan Family Hx:: Hyperlipidemia, Hypertension ROS Obtained: Yes All systems reviewed & no additional complaints - Constitutional Constitutional: Reports system reviewed and no additional complaints, except as docu, Reports chills, Reports weakness - Eyes Eyes: Reports system reviewed and no additional complaints, except as docu, Denies change in vision - ENT Ears, Nose, Mouth, and Throat: Reports system reviewed and no additional complaints, except as docu, Denies headache(s), Denies vertigo/dizziness - Cardiovascular Cardiovascular: Reports system reviewed and no additional complaints, except as docu, Denies chest pain, Denies chest pain at rest - Respiratory Respiratory: Yes system reviewed and no additional complaints, except as docu, No chest congestion, Yes dyspnea - Gastrointestinal Gastrointestingal: Reports: system reviewed and no additional complaints, except as docu, black, tarry stools, vomiting, other (light emesis earlier, no mention of blood or coffee ground appearance). Denies: abdominal pain - Genitourinary Female Genitourinary: Reports dysuria, Reports flank pain - Musculoskeletal Musculoskeletal: Reports system reviewed and no additional complaints, except as docu, Denies muscle aches - Integumentary/Breasts Skin/Breast: Reports system reviewed and no additional complaints, except as docu, Denies rash - Neurologic Neurologic: Reports system reviewed and no additional complaints, except as docu, Denies syncope - Hematologic/Lymphatic Henatologic/Lymphatic: Denies easy bleeding, Denies easy bruising, Denies lymphadenopathy Physical Exam - General General appearance: alert, in no apparent distress - Head Head exam: atraumatic - Eye Eye exam: Present: normal appearance, PERRL, EOMI - ENT ENT exam: Present: normal exam, normal oropharynx, mucous membranes moist, TM's normal bilaterally, normal external ear exam - Neck Neck exam: Present: normal inspection, full ROM, trachea midline. Absent: meningismus, lymphadenopathy - Chest Chest inspection: Present: normal inspection, symmetric chest wall rise - Respiratory Respiratory exam: Present: other (scattered rhonchi bilaterally. No distress). Absent: respiratory distress, wheezes - Cardiovascular Cardiovascular exam: Present: regular rate, normal rhythm - Abdominal Exam Abdominal exam: Present: soft. Absent: distention, guarding, rebound, rigidity, mass - Extremities Exam Extremities exam: Present: normal inspection, full ROM, normal capillary refill. Absent: calf tenderness - Back Exam Back exam: Present: normal inspection. Absent: tenderness - Neurological Exam Neurological exam: Present: alert, CN II-XII intact - Skin Skin exam: Present: warm, dry, intact, normal color - Lymphatic Lymphatic Findings: no adenopathy
[2018-09-23 23:45] LABS: Hemoglobin 7.8 g/dL (12.2-16.2)
--- NOTE | 2018-09-24 08:06 | Pharmacy Consult Notes ---
[facility] Pharmacy VTE Monitoring - Patient Demographics Admission date: 09/24/18 Report Date: 09/24/18 Time: 08:05 Allergies/Adverse Reactions: Patient Allergies Penicillins [PENICILLINS] Allergy (Mild, Verified 09/17/18 17:15) Height: 1.65 m Weight: 78.925 kg Patient Problems: Current Active Problems Pneumonia (Acute) Melena (Acute) Anticoagulant causing adverse effect in therapeutic use (Acute) DVT (deep venous thrombosis) (Acute) - VTE Risk Labs: VTE Related Lab Results Hgb 7.8 g/dL (12.2-16.2) L* 09/23/18 23:20 Hct 24.0 % (37.0-47.0) L 09/23/18 23:20 Plt Count 229 K/mm3 (142-424) 09/23/18 19:30 BUN 46 mg/dL (7-18) H 09/23/18 19:30 Creatinine 1.35 mg/dL (0.55-1.02) H 09/23/18 19:30 Estimated Creat Clear 38 mL/min (50-200) 09/23/18 19:30 Was VTE Risk Assessment Performed: Yes VTE Score: 5 VTE Risk Level: Low Risk Clinical Trial Participant: No - Prophylaxis VTE Prophylaxis Ordered?: Yes Types of VTE Prophylaxis: TEDS Knee High
--- NOTE | 2018-09-24 08:58 | History & Physical Report ---
*Admission Date: 09/24/18 *Chief complaint: black stools *History of present illness: Ms. Bautista is an 83-year-old female who is a resident of [facility] with a history of DVT, recent pneumonia, breast cancer with lumpectomy, anemia, hypertension, GERD, dementia, chronic renal failure, and who was recently discharged from [facility] with a stay from September 17 - September 22, 2018 with pneumonia, DVT, and CHF. Patient was sent from [facility] to the emergency room after having black stools for 2 days. Patient states she just did not feel well but denies any abdominal pain, nausea or vomiting. She does give conflicting histories. In the emergency room with evaluation she had a hemoglobin drop and thus was admitted for administration of blood and further evaluation. This a.m. the patient's main complaint is her cough. She states it kept her awake all night has been bothering her since discharge from the hospital last week. She states she is sometimes short of breath. She continues to deny chest and abdominal pain, nausea, vomiting, and diarrhea. She states she has not coughed up or vomited any blood or seen blood in her stools. She states she has been going to the dining room for her meals. [facility] History Medical History: Reports:: Arrhythmia, Cancer (lumpectomy), Congestive Heart Failure, Deep Vein Thrombosis, Dementia, Gastroesophageal Reflux Disease(GERD), Hyperlipidemia, Hypertension, Internal Pacemaker, Peripheral Vascular Disease, Renal Insufficiency, Urinary Tract Infection Denies:: Diabetes Mellitus Type 1, Diabetes Mellitus Type 2, MRSA, Seizures Have you ever received a pneumonia vaccine?: Yes Have you received a flu vaccine this season?: Yes Other Medical History: Reports: Anemia, Arthritis, Cataracts Laterality Cases: Right: Lumpectomy, Bilateral: Cataract, Other Other Surgeries: Yes: Cholecystectomy, Colonoscopy, Pacemaker, Other (left breast lumpectomy) Amputation: No Fractures: No - *Social History Educational Level: Completed College Smoking Status: Never smoker Alcohol Intake: never Alcohol Intake Frequency:: other Substance Use Type: denies use Occupational Status: retired Housing: assisted living facility Household Members: caregiver, other Travel in the last 8 weeks: None - Psychiatric History Expresses thoughts of harming self/others: None Suicide Plan Description: No Plan Family Hx:: Hyperlipidemia, Hypertension Review of Systems - Constitutional Denies headache(s) - ENT Denies ear pain, Denies sore throat - *Cardiovascular Reports shortness of breath, Denies chest pain - *Respiratory Reports chest congestion, Reports cough, Reports shortness of breath - *Gastrointestinal Reports black, tarry stools, Denies abdominal pain, Denies bloating, Denies change in bowel habits, Denies change in stools, Denies constipation, Denies heartburn, Denies nausea, Denies vomiting - *Genitourinary Reports difficulty urinating - *Musculoskeletal Denies joint pain Comments: Uses a walker with ambulation - *Neurologic Reports weakness, Denies headache(s), Denies fainting, Denies dizziness Meds Home Medications Medication Instructions Recorded Confirmed Type acetaminophen 325 mg tablet 650 mg PO Q4HP PRN 12/14/17 09/23/18 History atorvastatin 20 mg tablet 20 mg PO HS 30 Days #30 12/14/17 09/23/18 History cholecalciferol (vitamin D3) 2,000 2,000 unit PO DAILY cap 12/14/17 09/23/18 History unit capsule doxazosin 2 mg tablet 2 mg PO HS 30 Days #30 12/14/17 09/23/18 History lansoprazole 15 mg capsule,delayed 15 mg PO DAILY 30 Days #30 12/14/17 09/23/18 History release losartan 100 mg tablet 100 mg PO DAILY 30 Days #30 12/14/17 09/23/18 History memantine 28 mg capsule 28 mg PO DAILY 30 Days #30 12/14/17 09/23/18 History sprinkle,extended release 24hr nadolol 40 mg tablet 40 mg PO DAILY 30 Days #30 12/14/17 09/23/18 History polyethylene glycol 3350 17 17 gm PO DAILY 12/14/17 09/23/18 History gram/dose oral powder potassium chloride ER 10 mEq 10 meq PO DAILY 14 Days #14 12/14/17 09/23/18 History tablet,extended release Ferrous Sulfate [Ferrous Sulfate 325 mg PO DAILY 09/17/18 09/23/18 History 325mg Tablet] Aspirin [Aspirin 325mg Tab] 325 mg PO HS 09/18/18 09/23/18 History Melatonin/Pyridoxine HCl (B6) 1 each PO HSP PRN 09/18/18 09/23/18 History [Melatonin 1 mg Tablet] Furosemide [Lasix 40mg tablet] 40 mg PO BIDL 09/23/18 09/23/18 History Ipratropium/Albuterol Sulfate 3 ml IH TIDRT 09/23/18 09/23/18 History [Duoneb 3mL neb] Rivaroxaban [Xarelto 15mg tablet] 15 mg PO BIDWM 09/23/18 09/23/18 History Allergies Allergy/AdvReac Type Severity Reaction Status Date / Time Penicillins [PENICILLINS] Allergy Mild Verified 09/17/18 17:15 Exam Vital signs and Labs for Last 24 Hours: Temp Pulse Resp BP Pulse Ox 98.8 F 71 16 155/61 H 93 L 09/24/18 07:45 09/24/18 07:45 09/24/18 07:45 09/24/18 07:45 09/24/18 07:45 Laboratory Results - last 24 hr 09/23/18 17:30: Stool Occult Blood Positive A 09/23/18 19:30: WBC 14.2 H, RBC 2.99 L, Hgb 9.1 L, Hct 28.3 L, MCV 94.6, MCH 30.4, MCHC 32.2, RDW 14.5, Plt Count 229, MPV 7.4, Neut % (Auto) 81.9 H, Lymph % (Auto) 8.7 L, [place] % (Auto) 9.0, Eos % (Auto) 0.3, Baso % (Auto) 0.1, Neut # (Auto) 11.7 H, Lymph # (Auto) 1.2, [place] # (Auto) 1.3 H, Eos # (Auto) 0.0, Baso # (Auto) 0.0 09/23/18 19:30: Sodium 144, Potassium 3.2 L D, Chloride 103, Carbon Dioxide 36 H D, Anion Gap 8.2, BUN 46 H, Creatinine 1.35 H, Estimated Creat Clear 38, Estimated GFR 37 L, Est GFR ( Amer) 45 L, Glucose 184 H, Calcium 10.2 H, Total Bilirubin 0.4, AST 602 H*, ALT 38, Alkaline Phosphatase 102, C-Reactive Protein 5.4 H, Total Protein 5.9 L, Albumin 2.8 L, Globulin 3.1, Albumin/Globulin Ratio 0.9 L 09/23/18 19:30: ESR 20 09/23/18 19:30: Lactate 1.6 09/23/18 19:37: Urine Color Yellow, Urine Appearance Clear, Urine pH 6.0, Ur Specific [place] <= 1.005, Urine Protein Negative, Urine Glucose (UA) Negative, Urine Ketones Negative, Urine Blood 3+, Urine Nitrate Negative, Urine Bilirubin Negative, Urine Urobilinogen 0.2, Ur Leukocyte Esterase Negative, Urine RBC 20- 50, Amorphous Sediment Trace 09/23/18 20:45: Blood Type B Positive, Antibody Screen Negative, Crossmatch (AHG) See Detail 09/23/18 23:20: Hgb 7.8 L*, Hct 24.0 L I & O for Last 24 hours: Intake & Output 09/21/18 09/22/18 09/23/18 09/24/18 11:59 11:59 11:59 11:59 Intake Total / Balance / Weight 174 lb Microbiology Reports for the Last 24 Hours: Microbiology 09/24/18 01:30 Sputum - Expectorated Sputum Gram Stain - Final Radiology Reports for the Last 24 Hours: 09/23/2018 chest x-ray IMPRESSION: Nonacute chest findings 09/23/2018 CT of the abdomen and pelvis IMPRESSION: 1. No acute abdominal or pelvic findings 2. Nonobstructing bilateral nephrolithiasis with staghorn calculus in the upper pole the left kidney unchanged. 3. Nonacute incidental findings as detailed above. 4. Slight increased wedging of L1 - Constitutional no acute distress Comments: Has received 2 units of packed red blood cells. - *Routine HEENT Exam Head: Present: normocephalic, atraumatic Eye: Present: PERRL. Absent: conjunctival icterus, scleral injection ENT: Present: mucous membranes moist, oropharynx clear - *Routine Neck Exam Present: thyromegaly. 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 Frequent congested cough - *Routine Cardiovascular Exam Present: RRR - *Routine Abdominal Exam Present: soft, normoactive bowel sounds. Absent: tenderness, distended, guarding - *Routine Extremities Exam Comments: Bilateral leg edema greater on the left. Much improved since last hospitalization. Left leg without tenderness or palpable masses. - *Routine Neurological Exam Present: alert, moving all extremities Pleasantly confused Assessment and Plan (1) Anticoagulant causing adverse effect in therapeutic use Current visit: Yes Status: Acute Category: Medical Code(s): T45.515A - Adverse effect of anticoagulants, initial encounter (2) Respiratory tract congestion with cough Current visit: Yes Status: Acute Category: Medical Code(s): R05 - Cough (3) DVT (deep venous thrombosis) Current visit: Yes Status: Acute Category: Medical Code(s): I82.409 - Acute embolism and thrombosis of unspecified deep veins of unspecified lower extremity (4) Melena Current visit: Yes Status: Acute Category: Medical Code(s): K92.1 - Melena (5) History of anemia Current visit: No Status: Chronic Category: Medical Code(s): Z86.2 - Personal history of diseases of the blood and blood-forming organs and certain disorders involving the immune mechanism (6) History of breast cancer Current visit: No Status: Chronic Category: Medical Code(s): Z85.3 - Personal history of malignant neoplasm of breast (7) Hypertension Current visit: No Status: Chronic Category: Medical Code(s): I10 - Essential (primary) hypertension - Assessment and plan all Dx Assessment and Plan for all problems:: Patient has received 2 units of packed red blood cells. Post transfusion H&H is pending. Surgical consult has been ordered. We will hold anticoagulant therapy until after seen by surgeon. She is on a PPI. Duo nebs have been increased to 4 times a day. She was placed on Mucinex and guaifenesin. Renal function is improved. Due to her recent CHF while hospitalized last week will decrease IV fluids to 75/h For now
[2018-09-24 09:07] LABS: Anion Gap 8.7 mEq/L (5-15); Calcium 9.3 mg/dL (8.5-10.1)
[2018-09-24 09:10] LABS: Potassium 2.7 mmoL/L (3.5-5.1)
[2018-09-24 09:27] LABS: Basophils % 0.1 % (0.1-2.0); Lymphocytes # 0.9 K/mm3 (0.7-4.5); Mean Corpuscular HGB Conc 32.9 g/dL (31.8-35.4); Mean Corpuscular Hemoglobin 30.3 pg (27.0-31.2); Mean Corpuscular Volume 92.1 fl (81-99); Mean Platelet Volume 7.6 fl (7.4-10.4); Monocytes # 1.2 K/mm3 (0.1-1.0)
[2018-09-24 09:34] LABS: Eosinophils % 0.1 % (0.1-12.0); Hematocrit 33.7 % (37.0-47.0); Lymphocytes % 5.9 % (10-50); Monocytes % 7.7 % (1.7-9.3); Neutrophils % 86.3 % (37.0-80.0); Platelet Count 198 K/mm3 (142-424); Red Blood Count 3.66 M/mm3 (4.20-5.40)
[2018-09-24 09:42] LABS: Hemoglobin 11.1 g/dL (12.2-16.2)
[2018-09-24 10:38] LABS: Lymphocytes % 5 % (10-50); Monocytes % 4 % (2-9); Neutrophils % 91 % (42-76); RBC Morphology Normal; Total Cells Counted 100
--- NOTE | 2018-09-24 10:52 | Consult Report ---
*Admission Date: 09/24/18 *Chief complaint: possible GI blood loss *History of present illness: This is an 83-year-old L seen in consultation from the service of Dr. Nix for possible esophagogastroduodenoscopy. Please see forwarded copy of HPI from admission H&P below: Ms. Bautista is an 83-year-old female who is a resident of [facility] with a history of DVT, recent pneumonia, breast cancer with lumpectomy, anemia, hypertension, GERD, dementia, chronic renal failure, and who was recen tly discharged from [facility] with a stay from September 17 - September 22, 2018 with pneumonia, DVT, and CHF. Patient was sent from [facility] to the emergency room after having black stools for 2 days. Patient states she just did not feel well but denies any abdominal pain, nausea or vomiting. She does give conflicting histories. In the emergency room with evaluation she had a hemoglobin drop and thus was admitted for administration of blood and further evaluation. This a.m. the patient's main complaint is her cough. She states it kept her awake all night has been bothering her since discharge from the hospital last week. She states she is sometimes short of breath. She continues to deny chest and abdominal pain, nausea, vomiting, and diarrhea. She states she has not coughed up or vomited any blood or seen blood in her stools. She states she has been going to the dining room for her meals. Review of Systems - Constitutional Denies chills - Eyes Denies change in vision - ENT Denies bleeding gums - *Cardiovascular Denies chest pain - *Gastrointestinal Denies abdominal pain - *Genitourinary Denies abnormal vaginal bleeding - *Neurologic Reports weakness, Denies headache(s), Denies fainting, Denies dizziness - Hematologic/Lymphatic Denies easy bleeding [facility] History Medical History: Reports:: Arrhythmia, Cancer (lumpectomy), Congestive Heart Failure, Deep Vein Thrombosis, Dementia, Gastroesophageal Reflux Disease(GERD), Hyperlipidemia, Hypertension, Internal Pacemaker, Peripheral Vascular Disease, Renal Insufficiency, Urinary Tract Infection Denies:: Diabetes Mellitus Type 1, Diabetes Mellitus Type 2, MRSA, Seizures Have you ever received a pneumonia vaccine?: Yes Have you received a flu vaccine this season?: Yes Other Medical History: Reports: Anemia, Arthritis, Cataracts Laterality Cases: Right: Lumpectomy, Bilateral: Cataract, Other Other Surgeries: Yes: Cholecystectomy, Colonoscopy, Pacemaker, Other (left breast lumpectomy) Amputation: No Fractures: No - *Social History Educational Level: Completed College Smoking Status: Never smoker Alcohol Intake: never Alcohol Intake Frequency:: other Substance Use Type: denies use Occupational Status: retired Housing: assisted living facility Household Members: caregiver, other Travel in the last 8 weeks: None - Psychiatric History Expresses thoughts of harming self/others: None Suicide Plan Description: No Plan Family Hx:: Hyperlipidemia, Hypertension Meds Home Medications Medication Instructions Recorded Confirmed Type acetaminophen 325 mg tablet 650 mg PO Q4HP PRN 12/14/17 09/23/18 History atorvastatin 20 mg tablet 20 mg PO HS 30 Days #30 12/14/17 09/23/18 History cholecalciferol (vitamin D3) 2,000 2,000 unit PO DAILY cap 12/14/17 09/23/18 History unit capsule doxazosin 2 mg tablet 2 mg PO HS 30 Days #30 12/14/17 09/23/18 History lansoprazole 15 mg capsule,delayed 15 mg PO DAILY 30 Days #30 12/14/17 09/23/18 History release losartan 100 mg tablet 100 mg PO DAILY 30 Days #30 12/14/17 09/23/18 History memantine 28 mg capsule 28 mg PO DAILY 30 Days #30 12/14/17 09/23/18 History sprinkle,extended release 24hr nadolol 40 mg tablet 40 mg PO DAILY 30 Days #30 12/14/17 09/23/18 History polyethylene glycol 3350 17 17 gm PO DAILY 12/14/17 09/23/18 History gram/dose oral powder potassium chloride ER 10 mEq 10 meq PO DAILY 14 Days #14 12/14/17 09/23/18 History tablet,extended release Ferrous Sulfate [Ferrous Sulfate 325 mg PO DAILY 09/17/18 09/23/18 History 325mg Tablet] Aspirin [Aspirin 325mg Tab] 325 mg PO HS 09/18/18 09/23/18 History Melatonin/Pyridoxine HCl (B6) 1 each PO HSP PRN 09/18/18 09/23/18 History [Melatonin 1 mg Tablet] Furosemide [Lasix 40mg tablet] 40 mg PO BIDL 09/23/18 09/23/18 History Ipratropium/Albuterol Sulfate 3 ml IH TIDRT 09/23/18 09/23/18 History [Duoneb 3mL neb] Rivaroxaban [Xarelto 15mg tablet] 15 mg PO BIDWM 09/23/18 09/23/18 History Allergies Allergy/AdvReac Type Severity Reaction Status Date / Time Penicillins [PENICILLINS] Allergy Mild Verified 09/17/18 17:15 Exam Vital signs and Labs for Last 24 Hours: Temp Pulse Resp BP Pulse Ox 98.8 F 73 16 155/61 H 93 L 09/24/18 07:45 09/24/18 10:18 09/24/18 07:45 09/24/18 07:45 09/24/18 07:45 Laboratory Results - last 24 hr 09/23/18 17:30: Stool Occult Blood Positive A 09/23/18 19:30: WBC 14.2 H, RBC 2.99 L, Hgb 9.1 L, Hct 28.3 L, MCV 94.6, MCH 30.4, MCHC 32.2, RDW 14.5, Plt Count 229, MPV 7.4, Neut % (Auto) 81.9 H, Lymph % (Auto) 8.7 L, [place] % (Auto) 9.0, Eos % (Auto) 0.3, Baso % (Auto) 0.1, Neut # (Auto) 11.7 H, Lymph # (Auto) 1.2, [place] # (Auto) 1.3 H, Eos # (Auto) 0.0, Baso # (Auto) 0.0 09/23/18 19:30: Sodium 144, Potassium 3.2 L D, Chloride 103, Carbon Dioxide 36 H D, Anion Gap 8.2, BUN 46 H, Creatinine 1.35 H, Estimated Creat Clear 38, Estimated GFR 37 L, Est GFR ( Amer) 45 L, Glucose 184 H, Calcium 10.2 H, Total Bilirubin 0.4, AST 602 H*, ALT 38, Alkaline Phosphatase 102, C-Reactive Protein 5.4 H, Total Protein 5.9 L, Albumin 2.8 L, Globulin 3.1, Albumin/Globulin Ratio 0.9 L 09/23/18 19:30: ESR 20 09/23/18 19:30: Lactate 1.6 09/23/18 19:37: Urine Color Yellow, Urine Appearance Clear, Urine pH 6.0, Ur Specific [place] <= 1.005, Urine Protein Negative, Urine Glucose (UA) Negative, Urine Ketones Negative, Urine Blood 3+, Urine Nitrate Negative, Urine Bilirubin Negative, Urine Urobilinogen 0.2, Ur Leukocyte Esterase Negative, Urine RBC 20- 50, Amorphous Sediment Trace 09/23/18 20:45: Blood Type B Positive, Antibody Screen Negative, Crossmatch (AHG) See Detail 09/23/18 23:20: Hgb 7.8 L*, Hct 24.0 L 09/24/18 08:46: WBC 15.0 H, RBC 3.66 L, Hgb 11.1 L D, Hct 33.7 L, MCV 92.1, MCH 30.3, MCHC 32.9, RDW 15.0, Plt Count 198, MPV 7.6, Neut % (Auto) 86.3 H, Lymph % (Auto) 5.9 L, [place] % (Auto) 7.7, Eos % (Auto) 0.1, Baso % (Auto) 0.1, Neut # (Auto) 13.0 H, Lymph # (Auto) 0.9, [place] # (Auto) 1.2 H, Eos # (Auto) 0.0, Baso # (Auto) 0.0, Total Counted 100, Neutrophils % (Manual) 91 H, Lymphocytes % (Manual) 5 L, Monocytes % (Manual) 4, Platelet Estimate Normal, RBC Morphology Normal 09/24/18 08:46: Sodium 149 H, Potassium 2.7 L*, Chloride 108 H, Carbon Dioxide 35 H, Anion Gap 8.7, BUN 31 H D, Creatinine 1.19 H, Estimated Creat Clear 43, Estimated GFR 43 L, Est GFR ( Amer) 52 L, Glucose 148 H, Calcium 9.3 I & O for Last 24 hours: Intake & Output 09/21/18 09/22/18 09/23/18 09/24/18 11:59 11:59 11:59 11:59 Intake Total Balance Weight 174 lb Microbiology Reports for the Last 24 Hours: Microbiology 09/24/18 01:30 Sputum - Expectorated Sputum Gram Stain - Final - Constitutional no acute distress - *Routine Respiratory Exam Absent: respiratory distress - *Routine Cardiovascular Exam Present: RRR - *Routine Abdominal Exam Present: soft Results - Labs 09/24/18 08:46 09/24/18 08:46 Laboratory Results - last 24 hr 09/23/18 17:30: Stool Occult Blood Positive A 09/23/18 19:30: WBC 14.2 H, RBC 2.99 L, Hgb 9.1 L, Hct 28.3 L, MCV 94.6, MCH 30.4, MCHC 32.2, RDW 14.5, Plt Count 229, MPV 7.4, Neut % (Auto) 81.9 H, Lymph % (Auto) 8.7 L, [place] % (Auto) 9.0, Eos % (Auto) 0.3, Baso % (Auto) 0.1, Neut # (Auto) 11.7 H, Lymph # (Auto) 1.2, [place] # (Auto) 1.3 H, Eos # (Auto) 0.0, Baso # (Auto) 0.0 09/23/18 19:30: Sodium 144, Potassium 3.2 L D, Chloride 103, Carbon Dioxide 36 H D, Anion Gap 8.2, BUN 46 H, Creatinine 1.35 H, Estimated Creat Clear 38, Estimated GFR 37 L, Est GFR ( Amer) 45 L, Glucose 184 H, Calcium 10.2 H, Total Bilirubin 0.4, AST 602 H*, ALT 38, Alkaline Phosphatase 102, C-Reactive Protein 5.4 H, Total Protein 5.9 L, Albumin 2.8 L, Globulin 3.1, Albumin/Globulin Ratio 0.9 L 09/23/18 19:30: ESR 20 09/23/18 19:30: Lactate 1.6 09/23/18 19:37: Urine Color Yellow, Urine Appearance Clear, Urine pH 6.0, Ur Specific [place] <= 1.005, Urine Protein Negative, Urine Glucose (UA) Negative, Urine Ketones Negative, Urine Blood 3+, Urine Nitrate Negative, Urine Bilirubin Negative, Urine Urobilinogen 0.2, Ur Leukocyte Esterase Negative, Urine RBC 20- 50, Amorphous Sediment Trace 09/23/18 20:45: Blood Type B Positive, Antibody Screen Negative, Crossmatch (AHG) See Detail 09/23/18 23:20: Hgb 7.8 L*, Hct 24.0 L 09/24/18 08:46: WBC 15.0 H, RBC 3.66 L, Hgb 11.1 L D, Hct 33.7 L, MCV 92.1, MCH 30.3, MCHC 32.9, RDW 15.0, Plt Count 198, MPV 7.6, Neut % (Auto) 86.3 H, Lymph % (Auto) 5.9 L, [place] % (Auto) 7.7, Eos % (Auto) 0.1, Baso % (Auto) 0.1, Neut # (Auto) 13.0 H, Lymph # (Auto) 0.9, [place] # (Auto) 1.2 H, Eos # (Auto) 0.0, Baso # (Auto) 0.0, Total Counted 100, Neutrophils % (Manual) 91 H, Lymphocytes % (Manual) 5 L, Monocytes % (Manual) 4, Platelet Estimate Normal, RBC Morphology Normal 09/24/18 08:46: Sodium 149 H, Potassium 2.7 L*, Chloride 108 H, Carbon Dioxide 35 H, Anion Gap 8.7, BUN 31 H D, Creatinine 1.19 H, Estimated Creat Clear 43, Estimated GFR 43 L, Est GFR ( Amer) 52 L, Glucose 148 H, Calcium 9.3 Assessment and Plan (1) Anticoagulant causing adverse effect in therapeutic use Current visit: Yes Status: Acute Category: Medical Code(s): T45.515A - Adverse effect of anticoagulants, initial encounter (2) Respiratory tract congestion with cough Current visit: Yes Status: Acute Category: Medical Code(s): R05 - Cough (3) DVT (deep venous thrombosis) Current visit: Yes Status: Acute Category: Medical Code(s): I82.409 - Acute embolism and thrombosis of unspecified deep veins of unspecified lower extremity (4) Melena Current visit: Yes Status: Acute Category: Medical Code(s): K92.1 - Melena PPI EGD once K+ replaced Currently, the plan is to allow the patient to have clear liquids and make her n.p.o. after midnight for endoscopy in the morning. (5) History of anemia Current visit: No Status: Chronic Category: Medical Code(s): Z86.2 - Personal history of diseases of the blood and blood-forming organs and certain disorders involving the immune mechanism (6) History of breast cancer Current visit: No Status: Chronic Category: Medical Code(s): Z85.3 - Personal history of malignant neoplasm of breast (7) Hypertension Current visit: No Status: Chronic Category: Medical Code(s): I10 - Essential (primary) hypertension (8) Hypokalemia Current visit: Yes Status: Acute Category: Medical Code(s): E87.6 - Hypokalemia replace as per primary service
[2018-09-25 06:12] LABS: Basophils % 0.1 % (0.1-2.0); Hematocrit 31.8 % (37.0-47.0); Hemoglobin 10.3 g/dL (12.2-16.2); Lymphocytes # 0.9 K/mm3 (0.7-4.5); Lymphocytes % 7.2 % (10-50); Mean Corpuscular HGB Conc 32.4 g/dL (31.8-35.4); Mean Corpuscular Hemoglobin 30.2 pg (27.0-31.2); Mean Corpuscular Volume 93.3 fl (81-99); Mean Platelet Volume 7.7 fl (7.4-10.4); Monocytes % 7.7 % (1.7-9.3); Neutrophils # 10.9 K/mm3 (1.8-7.8); Neutrophils % 85.1 % (37.0-80.0); Platelet Count 186 K/mm3 (142-424); Red Blood Count 3.41 M/mm3 (4.20-5.40); Red Cell Distribution Width 15.2 % (11.5-17.5); White Blood Count 12.8 K/mm3 (4.8-10.8)
[2018-09-25 06:21] LABS: Albumin Level 1.8 gm/dL (3.4-5.0); Albumin/Globulin Ratio 0.6 (1.1-1.8); Anion Gap 7.6 mEq/L (5-15); Bilirubin,Total 0.6 mg/dL (0.2-1.0); Calcium 9.3 mg/dL (8.5-10.1); Globulin 3.2 gm/dl (1.3-3.2)
[2018-09-25 06:34] LABS: Potassium 2.6 mmoL/L (3.5-5.1)
--- NOTE | 2018-09-25 07:02 | Progress Note ---
Subjective Patient reports: other (resting) Exam Vital signs and Labs for Last 24 Hours: Temp Pulse Resp BP Pulse Ox 98.2 F 77 24 184/68 H 93 L 09/25/18 04:00 09/25/18 06:06 09/25/18 04:00 09/25/18 04:00 09/25/18 06:06 Laboratory Results - last 24 hr 09/23/18 20:45: Crossmatch (AHG) See Detail 09/24/18 08:46: WBC 15.0 H, RBC 3.66 L, Hgb 11.1 L D, Hct 33.7 L, MCV 92.1, MCH 30.3, MCHC 32.9, RDW 15.0, Plt Count 198, MPV 7.6, Neut % (Auto) 86.3 H, Lymph % (Auto) 5.9 L, [place] % (Auto) 7.7, Eos % (Auto) 0.1, Baso % (Auto) 0.1, Neut # (Auto) 13.0 H, Lymph # (Auto) 0.9, [place] # (Auto) 1.2 H, Eos # (Auto) 0.0, Baso # (Auto) 0.0, Total Counted 100, Neutrophils % (Manual) 91 H, Lymphocytes % (Manual) 5 L, Monocytes % (Manual) 4, Platelet Estimate Normal, RBC Morphology Normal 09/24/18 08:46: Sodium 149 H, Potassium 2.7 L*, Chloride 108 H, Carbon Dioxide 35 H, Anion Gap 8.7, BUN 31 H D, Creatinine 1.19 H, Estimated Creat Clear 43, Estimated GFR 43 L, Est GFR ( Amer) 52 L, Glucose 148 H, Calcium 9.3 09/25/18 05:31: WBC 12.8 H, RBC 3.41 L, Hgb 10.3 L, Hct 31.8 L, MCV 93.3, MCH 30.2, MCHC 32.4, RDW 15.2, Plt Count 186, MPV 7.7, Neut % (Auto) 85.1 H, Lymph % (Auto) 7.2 L, [place] % (Auto) 7.7, Eos % (Auto) 0.0 L, Baso % (Auto) 0.1, Neut # (Auto) 10.9 H, Lymph # (Auto) 0.9, [place] # (Auto) 1.0, Eos # (Auto) 0.0, Baso # (Auto) 0.0 09/25/18 05:31: Sodium 148 H, Potassium 2.6 L*, Chloride 108 H, Carbon Dioxide 35 H, Anion Gap 7.6, BUN 21 H D, Creatinine 1.19 H, Estimated Creat Clear 49, Estimated GFR 43 L, Est GFR ( Amer) 52 L, Glucose 121 H, Calcium 9.3, Total Bilirubin 0.6, AST 105 H D, ALT 16 D, Alkaline Phosphatase 77, Total Protein 5.0 L, Albumin 1.8 L D, Globulin 3.2, Albumin/Globulin Ratio 0.6 L I & O for Last 24 hours: Intake & Output 09/22/18 09/23/18 09/24/18 09/25/18 11:59 11:59 11:59 11:59 Intake Total 2000 Output Total 2640 / 2640 Balance -639 / -639 Weight 174 lb 198 lb 8 oz Microbiology Reports for the Last 24 Hours: Microbiology 09/24/18 01:30 Sputum - Expectorated Sputum Gram Stain - Final - Constitutional no acute distress - *Routine Respiratory Exam Absent: respiratory distress - *Routine Cardiovascular Exam Present: RRR Progress Note: A&P (1) Anticoagulant causing adverse effect in therapeutic use Status: Acute Current Visit: Yes (2) Respiratory tract congestion with cough Status: Acute Current Visit: Yes (3) DVT (deep venous thrombosis) Status: Acute Current Visit: Yes (4) Melena Status: Acute Assessment and plan: no sign of active hemorrhage potassium remains too low for sedation/endoscopy reschedule EGD for tomorrow morning (pending potassium level) Current Visit: Yes (5) History of anemia Status: Chronic Current Visit: No (6) History of breast cancer Status: Chronic Current Visit: No (7) Hypertension Status: Chronic Current Visit: No (8) Hypokalemia Status: Acute Current Visit: Yes Assessment and Plan for All Diagnoses:: replacement as per primary service
[2018-09-25 07:29] LABS: Lymphocytes % 5 % (10-50); Monocytes % 7 % (2-9); Neutrophils % 88 % (42-76); Total Cells Counted 100
[2018-09-25 07:30] LABS: RBC Morphology Normal
--- NOTE | 2018-09-25 08:54 | Progress Note ---
Internal Medicine - PN: Subj Interval history: Patient states she does not feel very well today. She denies pain. She states she continues to have a cough. She does not want to wake up. She cannot sit up in the bed for assessment today. She does not want breakfast. She just wants to sleep. Potassium is lower at 2.6. EGD has been postponed until tomorrow. She has had no stools. She denies nausea and has not vomited. Weights are noted and are inaccurate: on admission weight was 201 with subsequent weights 174 and today is 198. She is on ceftazidime every 8 hours. White blood count has been elevated but has decreased today. Blood pressures have been elevated and this morning is 184/68; O2 sats stable at 93%. Exam Vital signs and Labs for Last 24 Hours: Temp Pulse Resp BP Pulse Ox 98.2 F 77 24 184/68 H 93 L 09/25/18 04:00 09/25/18 06:06 09/25/18 04:00 09/25/18 04:00 09/25/18 06:06 Laboratory Results - last 24 hr 09/24/18 08:46: WBC 15.0 H, RBC 3.66 L, Hgb 11.1 L D, Hct 33.7 L, MCV 92.1, MCH 30.3, MCHC 32.9, RDW 15.0, Plt Count 198, MPV 7.6, Neut % (Auto) 86.3 H, Lymph % (Auto) 5.9 L, [place] % (Auto) 7.7, Eos % (Auto) 0.1, Baso % (Auto) 0.1, Neut # (Auto) 13.0 H, Lymph # (Auto) 0.9, [place] # (Auto) 1.2 H, Eos # (Auto) 0.0, Baso # (Auto) 0.0, Total Counted 100, Neutrophils % (Manual) 91 H, Lymphocytes % (Manual) 5 L, Monocytes % (Manual) 4, Platelet Estimate Normal, RBC Morphology Normal 09/24/18 08:46: Sodium 149 H, Potassium 2.7 L*, Chloride 108 H, Carbon Dioxide 35 H, Anion Gap 8.7, BUN 31 H D, Creatinine 1.19 H, Estimated Creat Clear 43, Estimated GFR 43 L, Est GFR ( Amer) 52 L, Glucose 148 H, Calcium 9.3 09/25/18 05:31: WBC 12.8 H, RBC 3.41 L, Hgb 10.3 L, Hct 31.8 L, MCV 93.3, MCH 30.2, MCHC 32.4, RDW 15.2, Plt Count 186, MPV 7.7, Neut % (Auto) 85.1 H, Lymph % (Auto) 7.2 L, [place] % (Auto) 7.7, Eos % (Auto) 0.0 L, Baso % (Auto) 0.1, Neut # (Auto) 10.9 H, Lymph # (Auto) 0.9, [place] # (Auto) 1.0, Eos # (Auto) 0.0, Baso # (Auto) 0.0, Total Counted 100, Neutrophils % (Manual) 88 H, Lymphocytes % (Manual) 5 L, Monocytes % (Manual) 7, Platelet Estimate Normal, RBC Morphology Normal 09/25/18 05:31: Sodium 148 H, Potassium 2.6 L*, Chloride 108 H, Carbon Dioxide 35 H, Anion Gap 7.6, BUN 21 H D, Creatinine 1.19 H, Estimated Creat Clear 49, Estimated GFR 43 L, Est GFR ( Amer) 52 L, Glucose 121 H, Calcium 9.3, Total Bilirubin 0.6, AST 105 H D, ALT 16 D, Alkaline Phosphatase 77, Total Protein 5.0 L, Albumin 1.8 L D, Globulin 3.2, Albumin/Globulin Ratio 0.6 L I & O for Last 24 hours: Intake & Output 09/22/18 09/23/18 09/24/18 09/25/18 11:59 11:59 11:59 11:59 Intake Total 2000 Output Total 2640 / 2640 Balance -639 / -639 Weight 174 lb 198 lb 8 oz Microbiology Reports for the Last 24 Hours: Microbiology 09/24/18 01:30 Sputum - Expectorated Sputum Gram Stain - Final 09/24/18 01:30 Sputum - Expectorated Sputum Sputum Culture - Preliminary - Constitutional Comments: Lethargic. Easily awakened. Difficulty with this assisting with exam. - *Routine Neck Exam Comments: Prominent goiter on the left side of the neck - *Routine Respiratory Exam Comments: Bilateral crackles and scattered wheezing - *Routine Cardiovascular Exam Present: RRR - *Routine Abdominal Exam Present: soft, normoactive bowel sounds. Absent: tenderness, distended - *Routine Extremities Exam Comments: Less edema. Left leg little is a little larger than the right. - *Routine Neurological Exam Present: alert Lethargic this a.m. Assessment and Plan (1) Anticoagulant causing adverse effect in therapeutic use Current visit: Yes Status: Acute Category: Medical Code(s): T45.515A - Adverse effect of anticoagulants, initial encounter (2) Respiratory tract congestion with cough Current visit: Yes Status: Acute Category: Medical Code(s): R05 - Cough (3) DVT (deep venous thrombosis) Current visit: Yes Status: Acute Category: Medical Code(s): I82.409 - Acute embolism and thrombosis of unspecified deep veins of unspecified lower extremity (4) Melena Current visit: Yes Status: Acute Category: Medical Code(s): K92.1 - Melena (5) History of anemia Current visit: No Status: Chronic Category: Medical Code(s): Z86.2 - Personal history of diseases of the blood and blood-forming organs and certain disorders involving the immune mechanism (6) History of breast cancer Current visit: No Status: Chronic Category: Medical Code(s): Z85.3 - Personal history of malignant neoplasm of breast (7) Hypertension Current visit: No Status: Chronic Category: Medical Code(s): I10 - Essential (primary) hypertension (8) Hypokalemia Current visit: Yes Status: Acute Category: Medical Code(s): E87.6 - Hypokalemia - Assessment and plan all Dx Assessment and Plan for all problems:: Will give 3 runs of potassium today. Will repeat chest x-ray. We will continue with IV fluids and add Levaquin.
[2018-09-26 06:21] LABS: Basophils % 0.1 % (0.1-2.0); Hematocrit 31.2 % (37.0-47.0); Hemoglobin 9.8 g/dL (12.2-16.2); Lymphocytes # 0.9 K/mm3 (0.7-4.5); Mean Corpuscular HGB Conc 31.5 g/dL (31.8-35.4); Mean Corpuscular Hemoglobin 29.9 pg (27.0-31.2); Mean Corpuscular Volume 94.8 fl (81-99); Mean Platelet Volume 7.8 fl (7.4-10.4); Monocytes # 0.9 K/mm3 (0.1-1.0); Neutrophils # 9.9 K/mm3 (1.8-7.8); Neutrophils % 83.9 % (37.0-80.0); Platelet Count 199 K/mm3 (142-424); Red Blood Count 3.29 M/mm3 (4.20-5.40); White Blood Count 11.8 K/mm3 (4.8-10.8)
[2018-09-26 06:28] LABS: Anion Gap 8.8 mEq/L (5-15); Calcium 9.7 mg/dL (8.5-10.1); Potassium 3.8 mmoL/L (3.5-5.1)
--- NOTE | 2018-09-26 06:47 | Progress Note ---
Subjective Patient reports: other (feels "a bit better") Exam Vital signs and Labs for Last 24 Hours: Temp Pulse Resp BP Pulse Ox 98.1 F 81 22 160/54 H 93 L 09/26/18 04:00 09/26/18 05:47 09/26/18 04:00 09/26/18 04:00 09/26/18 05:47 Laboratory Results - last 24 hr 09/24/18 08:46: H. pylori IgM Antibody <9.0 09/25/18 05:31: Total Counted 100, Neutrophils % (Manual) 88 H, Lymphocytes % (Manual) 5 L, Monocytes % (Manual) 7, Platelet Estimate Normal, RBC Morphology Normal 09/25/18 12:13: Influenza Type A Ag Negative, Influenza Type B Ag Negative 09/25/18 16:19: Potassium 4.4 D 09/26/18 05:34: WBC 11.8 H, RBC 3.29 L, Hgb 9.8 L, Hct 31.2 L, MCV 94.8, MCH 29.9, MCHC 31.5 L, RDW 15.0, Plt Count 199, MPV 7.8, Neut % (Auto) 83.9 H, Lymph % (Auto) 8.0 L, [place] % (Auto) 8.0, Eos % (Auto) 0.0 L, Baso % (Auto) 0.1, Neut # (Auto) 9.9 H, Lymph # (Auto) 0.9, [place] # (Auto) 0.9, Eos # (Auto) 0.0, Baso # (Auto) 0.0 09/26/18 05:34: Sodium 146 H, Potassium 3.8, Chloride 109 H, Carbon Dioxide 32, Anion Gap 8.8, BUN 18, Creatinine 1.25 H, Estimated Creat Clear 48, Estimated GFR 41 L, Est GFR ( Amer) 49 L, Glucose 89, Calcium 9.7 I & O for Last 24 hours: Intake & Output 09/23/18 09/24/18 09/25/18 09/26/18 11:59 11:59 11:59 11:59 Intake Total 2000 1290 / 1290 Output Total 2640 / 2640 1800 / 1800 Balance -639 / -639 -510 / -510 Weight 174 lb 198 lb 8 oz 202 lb 8 oz Microbiology Reports for the Last 24 Hours: Microbiology 09/23/18 19:30 Blood Blood Culture - Preliminary NO GROWTH AFTER 48 HOURS 09/23/18 19:30 Blood Blood Culture - Preliminary NO GROWTH AFTER 48 HOURS 09/24/18 01:30 Sputum - Expectorated Sputum Gram Stain - Final 09/24/18 01:30 Sputum - Expectorated Sputum Sputum Culture - Preliminary - Constitutional no acute distress - *Routine Respiratory Exam Absent: respiratory distress - *Routine Abdominal Exam Present: soft Progress Note: A&P (1) Anticoagulant causing adverse effect in therapeutic use Status: Acute Current Visit: Yes (2) Respiratory tract congestion with cough Status: Acute Current Visit: Yes (3) DVT (deep venous thrombosis) Status: Acute Current Visit: Yes (4) Melena Status: Acute Assessment and plan: H/H slightly lower this AM. No sign of active hemorrhage. EGD this AM Current Visit: Yes (5) History of anemia Status: Chronic Current Visit: No (6) History of breast cancer Status: Chronic Current Visit: No (7) Hypertension Status: Chronic Current Visit: No (8) Hypokalemia Status: Acute Assessment and plan: K improved after replacement Current Visit: Yes
--- NOTE | 2018-09-26 07:32 | Procedure Note ---
- Procedure: Date: 09/26/18 Procedure Performed:: Esophagogastroduodenoscopy with biopsy Indications:: Melena Anemia Performing Provider:: José Luis Dodson MD Referring Provider:: Dr. Nix Sedation:: Monitored anesthesia care Procedure:: After informed consent was obtained the patient was taken to the endoscopy suite. Sedation ensued after the patient was transferred to the left lateral decubitus position. Pulse, blood pressure, and oxygen saturation were monitored throughout the procedure. The endoscope was advanced beyond the duodenal bulb. Retroflexion within the gastric lumen was accomplished. The gastroscope was carefully removed and the patient was transferred to recovery in stable condition. Please see "findings" and "specimens" below for detail. Findings:: No active bleeding Somewhat tortuous esophagus Gastroesophageal junction at 33 cm Large sliding hiatal hernia with significant associated inflammation Mid gastric body polyps Moderate patchy gastritis throughout Severe inflammation of distal antrum/pyloric channel NOTE: No large crater ulcer or active bleeding; however, small linear ulcerations with recent bleeding are certainly a possibility at site of sliding hiatal hernia and at distal antrum/pyloric channel. Specimens:: Distal antrum/pyloric channel Mid gastric body polyp Recommendations:: Continue proton pump inhibition Continue to monitor hemoglobin/hematocrit May be able to restart Xarelto in near future if hemoglobin remains stable Complications:: No immediate Estimated blood obtained (mL): 1
--- NOTE | 2018-09-26 07:38 | Progress Note ---
[facility] Anesthesia Checklist - Patient Identification Patient Identification: Arm Band - Structural Data Admitted From: Home Planned Operative Procedure/s: egd Consent for Planned Operative Procedure(s) Verified: Yes Verified Documents: Surgical Consent, History and Physical - NPO Status Verified Time NPO: 00:00 - Additional verifications Anesthesia Reactions: No - Airway Assessment C-Spine Mobility Assessed: Yes (mp2) TMJ Mobility Assessed: Yes Dentition: Good Dentition - Neurological Assessment Level of Consciousness: Awake, Alert - Anesthesia Plan Anesthesia Risk discussed: Yes Anesthesia Plan: Verified ASA Class: IV Anesthesia Type: MAC [facility] History I have reviewed the patient's past medical history: Yes Medical History: Reports:: Arrhythmia, Cancer (lumpectomy), Congestive Heart Failure, Deep Vein Thrombosis, Dementia, Gastroesophageal Reflux Disease(GERD), Hyperlipidemia, Hypertension, Internal Pacemaker, Peripheral Vascular Disease, Renal Insufficiency, Urinary Tract Infection Denies:: Diabetes Mellitus Type 1, Diabetes Mellitus Type 2, MRSA, Seizures Have you ever received a pneumonia vaccine?: Yes Have you received a flu vaccine this season?: Yes Other Medical History: Reports: Anemia, Arthritis, Cataracts Laterality Cases: Right: Lumpectomy, Bilateral: Cataract, Other Other Surgeries: Yes: Cholecystectomy, Colonoscopy, Pacemaker, Other (left breast lumpectomy) Amputation: No Fractures: No - *Social History Educational Level: Completed College Smoking Status: Never smoker Alcohol Intake: never Alcohol Intake Frequency:: other Substance Use Type: denies use Occupational Status: retired Housing: assisted living facility Household Members: caregiver, other Travel in the last 8 weeks: None - Psychiatric History Expresses thoughts of harming self/others: None Suicide Plan Description: No Plan Family Hx:: Hyperlipidemia, Hypertension
--- NOTE | 2018-09-26 08:25 | Progress Note ---
Internal Medicine - PN: Subj Interval history: Patient is just returned from having her EGD. She states she is coughing all the time. She denies any nausea. Nurse stated her bowels moved a little yesterday. Nursing feels that she is more awake today. Concerned about her choking request a swallowing eval. Laboratory Tests 09/26/18 09/26/18 05:34 05:34 WBC 11.8 H RBC 3.29 L Hgb 9.8 L Hct 31.2 L Neut % (Auto) 83.9 H Lymph % (Auto) 8.0 L Sodium 146 H Potassium 3.8 Chloride 109 H BUN 18 Creatinine 1.25 H Estimated Creat Clear 48 Estimated GFR 41 L Calcium 9.7 Exam Vital signs and Labs for Last 24 Hours: Temp Pulse Resp BP Pulse Ox 98.1 F 81 22 160/54 H 93 L 09/26/18 04:00 09/26/18 05:47 09/26/18 04:00 09/26/18 04:00 09/26/18 05:47 Laboratory Results - last 24 hr 09/24/18 08:46: H. pylori IgM Antibody <9.0 09/25/18 12:13: Influenza Type A Ag Negative, Influenza Type B Ag Negative 09/25/18 16:19: Potassium 4.4 D 09/26/18 05:34: WBC 11.8 H, RBC 3.29 L, Hgb 9.8 L, Hct 31.2 L, MCV 94.8, MCH 29.9, MCHC 31.5 L, RDW 15.0, Plt Count 199, MPV 7.8, Neut % (Auto) 83.9 H, Lymph % (Auto) 8.0 L, [place] % (Auto) 8.0, Eos % (Auto) 0.0 L, Baso % (Auto) 0.1, Neut # (Auto) 9.9 H, Lymph # (Auto) 0.9, [place] # (Auto) 0.9, Eos # (Auto) 0.0, Baso # (Auto) 0.0 09/26/18 05:34: Sodium 146 H, Potassium 3.8, Chloride 109 H, Carbon Dioxide 32, Anion Gap 8.8, BUN 18, Creatinine 1.25 H, Estimated Creat Clear 48, Estimated GFR 41 L, Est GFR ( Amer) 49 L, Glucose 89, Calcium 9.7 I & O for Last 24 hours: Intake & Output 09/23/18 09/24/18 09/25/18 09/26/18 11:59 11:59 11:59 11:59 Intake Total 2000 1290 / 1290 Output Total 2640 / 2640 1800 / 1800 Balance -639 / -639 -510 / -510 Weight 174 lb 198 lb 8 oz 202 lb 8 oz Microbiology Reports for the Last 24 Hours: Microbiology 09/24/18 01:30 Sputum - Expectorated Sputum Gram Stain - Final 09/24/18 01:30 Sputum - Expectorated Sputum Sputum Culture - Preliminary 09/23/18 19:30 Blood Blood Culture - Preliminary NO GROWTH AFTER 48 HOURS 09/23/18 19:30 Blood Blood Culture - Preliminary NO GROWTH AFTER 48 HOURS Radiology Reports for the Last 24 Hours: Chest x-ray 09/25/2018 MPRESSION: Low lung volumes with left basilar atelectasis or infiltrate slightly worse EGD results 09/26/2018.Findings:: No active bleeding Somewhat tortuous esophagus Gastroesophageal junction at 33 cm Large sliding hiatal hernia with significant associated inflammation Mid gastric body polyps Moderate patchy gastritis throughout Severe inflammation of distal antrum/pyloric channel - Constitutional no acute distress Comments: Awake and alert - *Routine Respiratory Exam Comments: Crackles and wheezing throughout. Frequent congested cough - *Routine Cardiovascular Exam Present: RRR - *Routine Abdominal Exam Present: soft, normoactive bowel sounds. Absent: tenderness, distended - *Routine Extremities Exam Present: edema. Absent: calf tenderness - *Routine Neurological Exam Present: alert Speech is clear today Assessment and Plan (1) Anticoagulant causing adverse effect in therapeutic use Current visit: Yes Status: Acute Category: Medical Code(s): T45.515A - Adverse effect of anticoagulants, initial encounter (2) Respiratory tract congestion with cough Current visit: Yes Status: Acute Category: Medical Code(s): R05 - Cough (3) DVT (deep venous thrombosis) Current visit: Yes Status: Acute Category: Medical Code(s): I82.409 - Acute embolism and thrombosis of unspecified deep veins of unspecified lower extremity (4) Melena Current visit: Yes Status: Acute Category: Medical Code(s): K92.1 - Melena (5) History of anemia Current visit: No Status: Chronic Category: Medical Code(s): Z86.2 - Personal history of diseases of the blood and blood-forming organs and certain disorders involving the immune mechanism (6) History of breast cancer Current visit: No Status: Chronic Category: Medical Code(s): Z85.3 - Personal history of malignant neoplasm of breast (7) Hypertension Current visit: No Status: Chronic Category: Medical Code(s): I10 - Essential (primary) hypertension (8) Hypokalemia Current visit: Yes Status: Acute Category: Medical Code(s): E87.6 - Hypokalemia (9) Congestive heart failure Current visit: Yes Status: Acute Category: Medical Code(s): I50.9 - Heart failure, unspecified (10) Hiatal hernia Current visit: Yes Status: Acute Category: Medical Code(s): K44.9 - Diaphragmatic hernia without obstruction or gangrene (11) Gastritis Current visit: Yes Status: Acute Category: Medical Code(s): K29.70 - Gastritis, unspecified, without bleeding - Assessment and plan all Dx Assessment and Plan for all problems:: Continue IV antibiotics and duo nebs. Will decrease IV fluids today. Monitor potassium and H&H. Will have a swallowing evaluation today
--- NOTE | 2018-09-27 06:43 | Progress Note ---
Subjective Patient reports: no new complaints (more alert this AM) Exam Vital signs and Labs for Last 24 Hours: Temp Pulse Resp BP Pulse Ox 97.9 F 51 L 20 140/48 L 95 09/27/18 04:00 09/27/18 04:00 09/27/18 04:00 09/27/18 04:00 09/27/18 04:00 I & O for Last 24 hours: Intake & Output 09/24/18 09/25/18 09/26/18 09/27/18 11:59 11:59 11:59 11:59 Intake Total 2101 / 2101 1290 / 1290 885 / 885 Output Total 2640 / 2640 1800 / 1800 2800 / 2800 Balance -539 / -539 -510 / -510 -1915 / -1915 Weight 174 lb 198 lb 8 oz 202 lb 8 oz 203 lb 2 oz Microbiology Reports for the Last 24 Hours: Microbiology 09/24/18 01:30 Sputum - Expectorated Sputum Gram Stain - Final 09/24/18 01:30 Sputum - Expectorated Sputum Sputum Culture - Preliminary - Constitutional no acute distress - *Routine Respiratory Exam Absent: respiratory distress Comments: cough improved - *Routine Abdominal Exam Present: soft Progress Note: A&P (1) Anticoagulant causing adverse effect in therapeutic use Status: Acute Current Visit: Yes (2) Respiratory tract congestion with cough Status: Acute Current Visit: Yes (3) DVT (deep venous thrombosis) Status: Acute Current Visit: Yes (4) Melena Status: Acute Assessment and plan: likely secondary to focal severe inflammation at distal antrum/pylorus and/or at site of sliding hiatal hernia...no sign of ongoing blood loss. continue medical management as per PCP Current Visit: Yes (5) History of anemia Status: Chronic Current Visit: No (6) History of breast cancer Status: Chronic Current Visit: No (7) Hypertension Status: Chronic Current Visit: No (8) Hypokalemia Status: Acute Current Visit: Yes (9) Congestive heart failure Status: Acute Current Visit: Yes (10) Hiatal hernia Status: Acute Current Visit: Yes (11) Gastritis Status: Acute Current Visit: Yes
[2018-09-27 06:58] LABS: Basophils % 0.1 % (0.1-2.0); Eosinophils % 0.2 % (0.1-12.0); Hematocrit 32.4 % (37.0-47.0); Hemoglobin 10.1 g/dL (12.2-16.2); Lymphocytes % 8.3 % (10-50); Mean Corpuscular HGB Conc 31.2 g/dL (31.8-35.4); Mean Corpuscular Hemoglobin 29.9 pg (27.0-31.2); Mean Corpuscular Volume 96.1 fl (81-99); Monocytes # 0.8 K/mm3 (0.1-1.0); Monocytes % 6.9 % (1.7-9.3); Neutrophils # 10.1 K/mm3 (1.8-7.8); Neutrophils % 84.5 % (37.0-80.0); Platelet Count 205 K/mm3 (142-424); Red Blood Count 3.37 M/mm3 (4.20-5.40); Red Cell Distribution Width 14.7 % (11.5-17.5); White Blood Count 11.9 K/mm3 (4.8-10.8)
[2018-09-27 07:05] LABS: Anion Gap 9.6 mEq/L (5-15); Calcium 10.1 mg/dL (8.5-10.1); Potassium 3.6 mmoL/L (3.5-5.1)
--- NOTE | 2018-09-27 08:18 | Progress Note ---
Internal Medicine - PN: Subj *Date: 09/27/18 *Time: 08:13 Interval history: Patient is doing better this morning. She is more awake and alert and actually making jokes this morning. She states she had a good night sleep and has been tolerating her diet without any nausea, vomiting, or abdominal pain. She is still short of breath and coughing, but it has improved slightly. Exam Vital signs and Labs for Last 24 Hours: Temp Pulse Resp BP Pulse Ox 98.2 F 58 L 20 125/47 L 92 L 09/27/18 07:27 09/27/18 07:27 09/27/18 07:27 09/27/18 07:27 09/27/18 07:27 Laboratory Results - last 24 hr 09/27/18 05:58: WBC 11.9 H, RBC 3.37 L, Hgb 10.1 L, Hct 32.4 L, MCV 96.1, MCH 29.9, MCHC 31.2 L, RDW 14.7, Plt Count 205, MPV 8.0, Neut % (Auto) 84.5 H, Lymph % (Auto) 8.3 L, [place] % (Auto) 6.9, Eos % (Auto) 0.2, Baso % (Auto) 0.1, Neut # (Auto) 10.1 H, Lymph # (Auto) 1.0, [place] # (Auto) 0.8, Eos # (Auto) 0.0, Baso # (Auto) 0.0 09/27/18 05:58: Sodium 144, Potassium 3.6, Chloride 107, Carbon Dioxide 31, Anion Gap 9.6, BUN 18, Creatinine 1.37 H, Estimated Creat Clear 44, Estimated GFR 37 L, Est GFR ( Amer) 44 L, Glucose 83, Calcium 10.1 I & O for Last 24 hours: Intake & Output 09/24/18 09/25/18 09/26/18 09/27/18 11:59 11:59 11:59 11:59 Intake Total 2101 / 2101 1290 / 1290 1125 / 1125 Output Total 2640 / 2640 1800 / 1800 2800 / 2800 Balance -539 / -539 -510 / -510 -1675 / -1675 Weight 174 lb 198 lb 8 oz 202 lb 8 oz 203 lb 2 oz Microbiology Reports for the Last 24 Hours: Microbiology 09/24/18 01:30 Sputum - Expectorated Sputum Gram Stain - Final 09/24/18 01:30 Sputum - Expectorated Sputum Sputum Culture - Preliminary - Constitutional no acute distress - *Routine Respiratory Exam Present: rhonchi, crackles - *Routine Cardiovascular Exam Present: RRR - *Routine Abdominal Exam Present: soft, normoactive bowel sounds. Absent: tenderness - *Routine Extremities Exam Present: edema (less edema of the bilateral LE's) Assessment and Plan (1) Anticoagulant causing adverse effect in therapeutic use Current visit: Yes Status: Acute Category: Medical Code(s): T45.515A - Adverse effect of anticoagulants, initial encounter (2) Respiratory tract congestion with cough Current visit: Yes Status: Acute Category: Medical Code(s): R05 - Cough (3) DVT (deep venous thrombosis) Current visit: Yes Status: Acute Category: Medical Code(s): I82.409 - Acute embolism and thrombosis of unspecified deep veins of unspecified lower extremity (4) Melena Current visit: Yes Status: Acute Category: Medical Code(s): K92.1 - Melena (5) History of anemia Current visit: No Status: Chronic Category: Medical Code(s): Z86.2 - Personal history of diseases of the blood and blood-forming organs and certain disorders involving the immune mechanism (6) History of breast cancer Current visit: No Status: Chronic Category: Medical Code(s): Z85.3 - Personal history of malignant neoplasm of breast (7) Hypertension Current visit: No Status: Chronic Category: Medical Code(s): I10 - Essential (primary) hypertension (8) Hypokalemia Current visit: Yes Status: Acute Category: Medical Code(s): E87.6 - Hypokalemia (9) Congestive heart failure Current visit: Yes Status: Acute Category: Medical Code(s): I50.9 - Heart failure, unspecified (10) Hiatal hernia Current visit: Yes Status: Acute Category: Medical Code(s): K44.9 - Diaphragmatic hernia without obstruction or gangrene (11) Gastritis Current visit: Yes Status: Acute Category: Medical Code(s): K29.70 - Gastritis, unspecified, without bleeding - Assessment and plan all Dx Assessment and Plan for all problems:: H&H is stable today and patient is tolerating a diet and feeling much better. She still has crackles and wheezing in her lungs. We will get a repeat chest x- ray today. A swallowing evaluation was yesterday and has not been done yet.
--- NOTE | 2018-09-28 08:31 | Progress Note ---
Internal Medicine - PN: Subj *Date: 09/28/18 *Time: 08:28 Interval history: Patient is much more lethargic today. She states she is very tired and she thought she was given something to help her sleep last night. She denies any pain today but is still coughing and wheezing. Her son states she did not eat much of her breakfast due to fatigue. Exam Vital signs and Labs for Last 24 Hours: Temp Pulse Resp BP Pulse Ox 97.8 F 50 L 24 121/53 L 91 L 09/28/18 07:58 09/28/18 07:58 09/28/18 07:58 09/28/18 07:58 09/28/18 07:58 I & O for Last 24 hours: Intake & Output 09/25/18 09/26/18 09/27/18 09/28/18 11:59 11:59 11:59 11:59 Intake Total 2101 / 2101 1290 / 1290 1125 / 1125 3732 / 3732 Output Total 2640 / 2640 1800 / 1800 2800 / 2800 1000 / 1000 Balance -539 / -539 -510 / -510 -1675 / -1675 2732 / 2732 Weight 198 lb 8 oz 202 lb 8 oz 203 lb 2 oz 206 lb 1 oz Microbiology Reports for the Last 24 Hours: Microbiology 09/24/18 01:30 Sputum - Expectorated Sputum Gram Stain - Final 09/24/18 01:30 Sputum - Expectorated Sputum Sputum Culture - Final Yeast - Constitutional Comments: Lethargic this am, she will answer questions but falls asleep in the middle of questioning - *Routine Respiratory Exam Present: rales (bilateral), wheezes - *Routine Cardiovascular Exam Present: RRR - *Routine Abdominal Exam Present: soft, normoactive bowel sounds. Absent: tenderness - *Routine Extremities Exam Present: edema (bilateral LE's) - *Routine Skin Exam Present: pallor Assessment and Plan (1) Anticoagulant causing adverse effect in therapeutic use Current visit: Yes Status: Acute Category: Medical Code(s): T45.515A - Adverse effect of anticoagulants, initial encounter (2) Respiratory tract congestion with cough Current visit: Yes Status: Acute Category: Medical Code(s): R05 - Cough (3) DVT (deep venous thrombosis) Current visit: Yes Status: Acute Category: Medical Code(s): I82.409 - Acute embolism and thrombosis of unspecified deep veins of unspecified lower extremity (4) Melena Current visit: Yes Status: Acute Category: Medical Code(s): K92.1 - Melena (5) History of anemia Current visit: No Status: Chronic Category: Medical Code(s): Z86.2 - Personal history of diseases of the blood and blood-forming organs and certain disorders involving the immune mechanism (6) History of breast cancer Current visit: No Status: Chronic Category: Medical Code(s): Z85.3 - Personal history of malignant neoplasm of breast (7) Hypertension Current visit: No Status: Chronic Category: Medical Code(s): I10 - Essential (primary) hypertension (8) Hypokalemia Current visit: Yes Status: Acute Category: Medical Code(s): E87.6 - Hypokalemia (9) Congestive heart failure Current visit: Yes Status: Acute Category: Medical Code(s): I50.9 - Heart failure, unspecified (10) Hiatal hernia Current visit: Yes Status: Acute Category: Medical Code(s): K44.9 - Diaphragmatic hernia without obstruction or gangrene (11) Gastritis Current visit: Yes Status: Acute Category: Medical Code(s): K29.70 - Gastritis, unspecified, without bleeding (12) Pneumonia Problem details: Sputum positive for yeast Current visit: Yes Status: Acute Category: Medical Code(s): J18.9 - Pneumonia, unspecified organism - Assessment and plan all Dx Assessment and Plan for all problems:: I do not see any medications that were given for sleep last night. Will get labs this am as patient is more lethargic. Sputum is positive only for yeast. Will start on nystatin orally.
[2018-09-28 08:52] LABS: Basophils % 0.1 % (0.1-2.0); Eosinophils % 0.2 % (0.1-12.0); Hematocrit 32.1 % (37.0-47.0); Hemoglobin 10.2 g/dL (12.2-16.2); Lymphocytes % 7.5 % (10-50); Mean Corpuscular HGB Conc 31.7 g/dL (31.8-35.4); Mean Corpuscular Hemoglobin 30.5 pg (27.0-31.2); Mean Corpuscular Volume 96.4 fl (81-99); Mean Platelet Volume 8.1 fl (7.4-10.4); Neutrophils # 11.5 K/mm3 (1.8-7.8); Neutrophils % 85.1 % (37.0-80.0); Platelet Count 219 K/mm3 (142-424); Red Blood Count 3.34 M/mm3 (4.20-5.40); Red Cell Distribution Width 14.6 % (11.5-17.5); White Blood Count 13.5 K/mm3 (4.8-10.8)
[2018-09-28 09:05] LABS: Albumin Level 1.4 gm/dL (3.4-5.0); Albumin/Globulin Ratio 0.3 (1.1-1.8); Anion Gap 10.9 mEq/L (5-15); Bilirubin,Total 0.4 mg/dL (0.2-1.0); Calcium 10.3 mg/dL (8.5-10.1); Globulin 4.1 gm/dl (1.3-3.2); Potassium 4.9 mmoL/L (3.5-5.1); Total Protein,Serum 5.5 gm/dL (6.4-8.2)
[2018-09-28 09:14] LABS: Lymphocytes % 5 % (10-50); Monocytes % 6 % (2-9); Neutrophils % 89 % (42-76); RBC Morphology Normal; Total Cells Counted 100
--- NOTE | 2018-09-29 11:48 | Progress Note ---
Internal Medicine - PN: Subj *Date: 09/29/18 *Time: 11:46 Interval history: Ms. Gomez has not looked quite as well the past 2 days. After seeing her yesterday I gave her 20 mg of Lasix IV. Her weight has still gone up to 210 today. She was 206 yesterday. She is still quite readily and congested. I will give her additional 40 mg of Lasix IV today. I will increase her daily dose. Exam Vital signs and Labs for Last 24 Hours: Temp Pulse Resp BP Pulse Ox 98.6 F 54 L 22 134/60 97 09/29/18 08:00 09/29/18 08:00 09/29/18 08:00 09/29/18 08:00 09/29/18 08:00 I & O for Last 24 hours: Intake & Output 09/26/18 09/27/18 09/28/18 09/29/18 11:59 11:59 11:59 11:59 Intake Total 1290 / 1290 1175 / 1175 3782 / 3782 1151 / 1151 Output Total 1800 / 1800 2800 / 2800 1000 / 1000 1451 / 1451 Balance -510 / -510 -1625 / -1625 2782 / 2782 -300 / -300 Weight 202 lb 8 oz 203 lb 2 oz 206 lb 1 oz 210 lb 2 oz Microbiology Reports for the Last 24 Hours: Microbiology 09/23/18 19:30 Blood Blood Culture - Final NO GROWTH AFTER 5 DAYS 09/23/18 19:30 Blood Blood Culture - Final NO GROWTH AFTER 5 DAYS 09/24/18 01:30 Sputum - Expectorated Sputum Gram Stain - Final 09/24/18 01:30 Sputum - Expectorated Sputum Sputum Culture - Final Yeast - Constitutional Comments: Appears not to feel well and appears pale - *Routine HEENT Exam Head: Present: normocephalic Eye: Present: PERRL - *Routine Respiratory Exam Present: decreased breath sounds Comments: Congested rattling cough. - *Routine Cardiovascular Exam Present: RRR - *Routine Abdominal Exam Present: soft (Obese). Absent: tenderness - *Routine Extremities Exam Present: edema (Seems to have more edema today.) - Routine Psychiatric Exam Comments: She does not feel well. Assessment and Plan (1) Anticoagulant causing adverse effect in therapeutic use Current visit: Yes Status: Acute Category: Medical Code(s): T45.515A - Adverse effect of anticoagulants, initial encounter (2) Respiratory tract congestion with cough Current visit: Yes Status: Acute Category: Medical Code(s): R05 - Cough (3) DVT (deep venous thrombosis) Current visit: Yes Status: Acute Category: Medical Code(s): I82.409 - Acute embolism and thrombosis of unspecified deep veins of unspecified lower extremity (4) Melena Current visit: Yes Status: Acute Category: Medical Code(s): K92.1 - Melena (5) History of anemia Current visit: No Status: Chronic Category: Medical Code(s): Z86.2 - Personal history of diseases of the blood and blood-forming organs and certain disorders involving the immune mechanism (6) History of breast cancer Current visit: No Status: Chronic Category: Medical Code(s): Z85.3 - Personal history of malignant neoplasm of breast (7) Hypertension Current visit: No Status: Chronic Category: Medical Code(s): I10 - Essential (primary) hypertension (8) Hypokalemia Current visit: Yes Status: Acute Category: Medical Code(s): E87.6 - Hypokalemia (9) Congestive heart failure Current visit: Yes Status: Acute Category: Medical Code(s): I50.9 - Heart failure, unspecified (10) Hiatal hernia Current visit: Yes Status: Acute Category: Medical Code(s): K44.9 - Diaphragmatic hernia without obstruction or gangrene (11) Gastritis Current visit: Yes Status: Acute Category: Medical Code(s): K29.70 - Gastritis, unspecified, without bleeding (12) Pneumonia Problem details: Sputum positive for yeast Current visit: Yes Status: Acute Category: Medical Code(s): J18.9 - Pneumonia, unspecified organism - Assessment and plan all Dx Assessment and Plan for all problems:: Lasix 40 mg IV now. CBC today.
[2018-09-29 12:32] LABS: Basophils % 0.1 % (0.1-2.0); Eosinophils # 0.1 K/mm3 (0.0-0.4); Eosinophils % 0.9 % (0.1-12.0); Hematocrit 31.8 % (37.0-47.0); Hemoglobin 9.7 g/dL (12.2-16.2); Lymphocytes # 1.1 K/mm3 (0.7-4.5); Lymphocytes % 6.7 % (10-50); Mean Corpuscular HGB Conc 30.5 g/dL (31.8-35.4); Mean Corpuscular Hemoglobin 29.7 pg (27.0-31.2); Mean Corpuscular Volume 97.5 fl (81-99); Mean Platelet Volume 8.1 fl (7.4-10.4); Monocytes % 6.2 % (1.7-9.3); Neutrophils # 13.3 K/mm3 (1.8-7.8); Platelet Count 253 K/mm3 (142-424); Red Blood Count 3.26 M/mm3 (4.20-5.40); Red Cell Distribution Width 14.5 % (11.5-17.5); White Blood Count 15.4 K/mm3 (4.8-10.8)
[2018-09-29 14:30] LABS: Eosinophils % 1 % (0-3); Lymphocytes % 7 % (10-50); Monocytes % 9 % (2-9); Neutrophils % 81 % (42-76); RBC Morphology Normal; Total Cells Counted 100
[2018-09-30 06:54] LABS: Anion Gap 10.5 mEq/L (5-15); Calcium 10.7 mg/dL (8.5-10.1); Potassium 4.5 mmoL/L (3.5-5.1)
--- NOTE | 2018-09-30 08:38 | Progress Note ---
Internal Medicine - PN: Subj Interval history: She apparently had a restless night and did not sleep well. Family had inquired with nursing staff about starting pain medication for general comfort measures. She denies specific pain this morning. She still has a congested cough. Dr. Nix had increased her Lasix dose yesterday. She has not had much more urine output and weight has increased further. Exam Vital signs and Labs for Last 24 Hours: Temp Pulse Resp BP Pulse Ox 98.2 F 83 20 155/73 H 91 L 09/30/18 07:39 09/30/18 07:39 09/30/18 07:39 09/30/18 07:39 09/30/18 07:39 Laboratory Results - last 24 hr 09/29/18 12:08: WBC 15.4 H, RBC 3.26 L, Hgb 9.7 L, Hct 31.8 L, MCV 97.5, MCH 29.7, MCHC 30.5 L, RDW 14.5, Plt Count 253, MPV 8.1, Neut % (Auto) 86.0 H, Lymph % (Auto) 6.7 L, [place] % (Auto) 6.2, Eos % (Auto) 0.9, Baso % (Auto) 0.1, Neut # (Auto) 13.3 H, Lymph # (Auto) 1.1, [place] # (Auto) 1.0, Eos # (Auto) 0.1, Baso # (Auto) 0.0, Total Counted 100, Neutrophils % (Manual) 81 H, Lymphocytes % (Manual) 7 L, Atypical Lymphs % 2.0, Monocytes % (Manual) 9, Eosinophils % (Manual) 1, Platelet Estimate Normal, RBC Morphology Normal 09/30/18 06:18: Sodium 149 H, Potassium 4.5, Chloride 114 H, Carbon Dioxide 29, Anion Gap 10.5, BUN 40 H, Creatinine 2.06 H, Estimated Creat Clear 31, Estimated GFR 23 L, Est GFR ( Amer) 28 L, Glucose 133 H, Calcium 10.7 H I & O for Last 24 hours: Intake & Output 09/27/18 09/28/18 09/29/18 09/30/18 11:59 11:59 11:59 11:59 Intake Total 1175 / 1175 3782 / 3782 1151 / 1151 240 / 240 Output Total 2800 / 2800 1000 / 1000 1851 / 1851 1000 / 1000 Balance -1625 / -1625 2782 / 2782 -700 / -700 -760 / -760 Weight 203 lb 2 oz 206 lb 1 oz 210 lb 2 oz 219 lb 2 oz Narrative: She is awake and alert. Noted with congested cough. Respirations are not labored. Lungs reveal bilateral coarse rhonchi and a few faint wheezes. Abdomen is soft and nondistended with no tenderness. Assessment and Plan (1) Anticoagulant causing adverse effect in therapeutic use Current visit: Yes Status: Acute Category: Medical Code(s): T45.515A - Adverse effect of anticoagulants, initial encounter (2) Respiratory tract congestion with cough Current visit: Yes Status: Acute Category: Medical Code(s): R05 - Cough (3) DVT (deep venous thrombosis) Current visit: Yes Status: Acute Category: Medical Code(s): I82.409 - Acute embolism and thrombosis of unspecified deep veins of unspecified lower extremity (4) Melena Current visit: Yes Status: Acute Category: Medical Code(s): K92.1 - Melena (5) History of anemia Current visit: No Status: Chronic Category: Medical Code(s): Z86.2 - Personal history of diseases of the blood and blood-forming organs and certain disorders involving the immune mechanism (6) History of breast cancer Current visit: No Status: Chronic Category: Medical Code(s): Z85.3 - Personal history of malignant neoplasm of breast (7) Hypertension Current visit: No Status: Chronic Category: Medical Code(s): I10 - Essential (primary) hypertension (8) Hypokalemia Current visit: Yes Status: Acute Category: Medical Code(s): E87.6 - Hypokalemia (9) Congestive heart failure Current visit: Yes Status: Acute Category: Medical Code(s): I50.9 - Heart failure, unspecified (10) Hiatal hernia Current visit: Yes Status: Acute Category: Medical Code(s): K44.9 - Diaphragmatic hernia without obstruction or gangrene (11) Gastritis Current visit: Yes Status: Acute Category: Medical Code(s): K29.70 - Gastritis, unspecified, without bleeding (12) Pneumonia Problem details: Sputum positive for yeast Current visit: Yes Status: Acute Category: Medical Code(s): J18.9 - Pneumonia, unspecified organism - Assessment and plan all Dx Assessment and Plan for all problems:: Continue current antibiotics and Lasix dose. Renal functions are stable. Will give 1 dose of Solu-Medrol and see how she responds. We will also add low-dose of morphine as needed for generalized discomfort. Note that she is DNI status. Repeat labs in the morning.
--- NOTE | 2018-09-30 09:45 | Progress Note ---
Internal Medicine - PN: Subj *Date: 09/30/18 *Time: 09:44 Exam Vital signs and Labs for Last 24 Hours: Temp Pulse Resp BP Pulse Ox 98.2 F 83 20 155/73 H 91 L 09/30/18 07:39 09/30/18 07:39 09/30/18 07:39 09/30/18 07:39 09/30/18 07:39 Laboratory Results - last 24 hr 09/29/18 12:08: WBC 15.4 H, RBC 3.26 L, Hgb 9.7 L, Hct 31.8 L, MCV 97.5, MCH 29.7, MCHC 30.5 L, RDW 14.5, Plt Count 253, MPV 8.1, Neut % (Auto) 86.0 H, Lymph % (Auto) 6.7 L, [place] % (Auto) 6.2, Eos % (Auto) 0.9, Baso % (Auto) 0.1, Neut # (Auto) 13.3 H, Lymph # (Auto) 1.1, [place] # (Auto) 1.0, Eos # (Auto) 0.1, Baso # (Auto) 0.0, Total Counted 100, Neutrophils % (Manual) 81 H, Lymphocytes % (Manual) 7 L, Atypical Lymphs % 2.0, Monocytes % (Manual) 9, Eosinophils % (Manual) 1, Platelet Estimate Normal, RBC Morphology Normal 09/30/18 06:18: Sodium 149 H, Potassium 4.5, Chloride 114 H, Carbon Dioxide 29, Anion Gap 10.5, BUN 40 H, Creatinine 2.06 H, Estimated Creat Clear 31, Estimated GFR 23 L, Est GFR ( Amer) 28 L, Glucose 133 H, Calcium 10.7 H I & O for Last 24 hours: Intake & Output 09/27/18 09/28/18 09/29/18 09/30/18 23:59 23:59 23:59 23:59 Intake Total 890 / 890 4333 / 4333 290 / 290 0 / 0 Output Total 2400 / 2400 1351 / 1351 1150 / 1150 750 / 750 Balance -1510 / -1510 2982 / 2982 -860 / -860 -750 / -750 Weight 92.136 kg 93.468 kg 95.311 kg 99.393 kg Assessment and Plan (1) Anticoagulant causing adverse effect in therapeutic use Current visit: Yes Status: Acute Category: Medical Code(s): T45.515A - Adverse effect of anticoagulants, initial encounter (2) Respiratory tract congestion with cough Current visit: Yes Status: Acute Category: Medical Code(s): R05 - Cough (3) DVT (deep venous thrombosis) Current visit: Yes Status: Acute Category: Medical Code(s): I82.409 - Acute embolism and thrombosis of unspecified deep veins of unspecified lower extremity (4) Melena Current visit: Yes Status: Acute Category: Medical Code(s): K92.1 - Melena (5) History of anemia Current visit: No Status: Chronic Category: Medical Code(s): Z86.2 - Personal history of diseases of the blood and blood-forming organs and certain disorders involving the immune mechanism (6) History of breast cancer Current visit: No Status: Chronic Category: Medical Code(s): Z85.3 - Personal history of malignant neoplasm of breast (7) Hypertension Current visit: No Status: Chronic Category: Medical Code(s): I10 - Essential (primary) hypertension (8) Hypokalemia Current visit: Yes Status: Acute Category: Medical Code(s): E87.6 - Hypokalemia (9) Congestive heart failure Current visit: Yes Status: Acute Category: Medical Code(s): I50.9 - Heart failure, unspecified (10) Hiatal hernia Current visit: Yes Status: Acute Category: Medical Code(s): K44.9 - Diaphragmatic hernia without obstruction or gangrene (11) Gastritis Current visit: Yes Status: Acute Category: Medical Code(s): K29.70 - Gastritis, unspecified, without bleeding (12) Pneumonia Problem details: Sputum positive for yeast Current visit: Yes Status: Acute Category: Medical Code(s): J18.9 - Pneumonia, unspecified organism The patient's infection will respond to the chosen ABx?: Yes Is the patient receiving the right drug, dose, and route?: Yes Could a more targeted ABx be ordered?: No (NYSTATIN FOR YEAST IN SPUTUM)
[2018-10-01 06:38] LABS: Basophils % 0.1 % (0.1-2.0); Eosinophils # 0.1 K/mm3 (0.0-0.4); Eosinophils % 0.6 % (0.1-12.0); Hematocrit 30.2 % (37.0-47.0); Hemoglobin 9.3 g/dL (12.2-16.2); Lymphocytes % 7.4 % (10-50); Mean Corpuscular HGB Conc 30.9 g/dL (31.8-35.4); Mean Corpuscular Hemoglobin 29.9 pg (27.0-31.2); Mean Corpuscular Volume 96.9 fl (81-99); Mean Platelet Volume 7.8 fl (7.4-10.4); Monocytes # 1.3 K/mm3 (0.1-1.0); Monocytes % 9.9 % (1.7-9.3); Neutrophils # 10.8 K/mm3 (1.8-7.8); Platelet Count 249 K/mm3 (142-424); Red Blood Count 3.12 M/mm3 (4.20-5.40); Red Cell Distribution Width 14.5 % (11.5-17.5); White Blood Count 13.2 K/mm3 (4.8-10.8)
[2018-10-01 06:46] LABS: Calcium 11.1 mg/dL (8.5-10.1)
--- NOTE | 2018-10-01 08:23 | Progress Note ---
Internal Medicine - PN: Subj *Date: 10/01/18 *Time: 08:19 Interval history: Per nursing: Patient has had a downhill course over the last few days. The nurse did state that after morphine yesterday patient did perk up. To note she also got Solu-Medrol about the same time. As the day progressed she became more lethargic. Blood pressure was low with systolic blood pressure in the 80s and 90s and therefore they did not repeat morphine. These blood pressures not documented. She continues with a nonproductive cough. She did sleep well during the night. Patient is eating very poorly and drinks very little. Patient denies pain but does state she is a little short of breath. Selected Entries 10/01/18 03:22 Weight 216 lb 9 oz Selected Entries 09/29/18 06:00 09/30/18 04:17 Weight 210 lb 2 oz 219 lb 2 oz Exam Vital signs and Labs for Last 24 Hours: Temp Pulse Resp BP Pulse Ox 98.4 F 79 24 137/74 94 L 10/01/18 07:36 10/01/18 07:36 10/01/18 07:36 10/01/18 07:36 10/01/18 07:36 Laboratory Results - last 24 hr 10/01/18 05:53: WBC 13.2 H, RBC 3.12 L, Hgb 9.3 L, Hct 30.2 L, MCV 96.9, MCH 29.9, MCHC 30.9 L, RDW 14.5, Plt Count 249, MPV 7.8, Neut % (Auto) 82.0 H, Lymph % (Auto) 7.4 L, [place] % (Auto) 9.9 H, Eos % (Auto) 0.6, Baso % (Auto) 0.1, Neut # (Auto) 10.8 H, Lymph # (Auto) 1.0, [place] # (Auto) 1.3 H, Eos # (Auto) 0.1, Baso # (Auto) 0.0 10/01/18 05:53: Sodium 148 H, Potassium 4.0, Chloride 111 H, Carbon Dioxide 31, Anion Gap 10.0, BUN 37 H, Creatinine 2.01 H, Estimated Creat Clear 32, Estimated GFR 24 L, Est GFR ( Amer) 28 L, Glucose 105 D, Calcium 11.1 H 10/01/18 05:53: B-Natriuretic Peptide 1260 H I & O for Last 24 hours: Intake & Output 09/28/18 09/29/18 09/30/18 10/01/18 11:59 11:59 11:59 11:59 Intake Total 3782 / 3782 1201 / 1201 240 / 240 130 / 130 Output Total 1000 / 1000 1851 / 1851 1000 / 1000 2400 / 2400 Balance 2782 / 2782 -650 / -650 -760 / -760 -2270 / -2270 Weight 206 lb 1 oz 210 lb 2 oz 219 lb 2 oz 216 lb 9 oz - Constitutional no acute distress Comments: Awakened for assessment. Speech is somewhat slowed and she is lethargic. Respiratory effort is easy. - *Routine Respiratory Exam Comments: Bilateral coarse rhonchi anteriorly and posteriorly - *Routine Cardiovascular Exam Present: RRR - *Routine Abdominal Exam Present: soft, normoactive bowel sounds. Absent: tenderness, distended - *Routine Extremities Exam Present: edema (Appears less bilaterally). Absent: calf tenderness - *Routine Neurological Exam Present: alert. Absent: normal speech (Somewhat slurred) Lethargic. Answers questions appropriately Assessment and Plan (1) Anticoagulant causing adverse effect in therapeutic use Current visit: Yes Status: Acute Category: Medical Code(s): T45.515A - Adverse effect of anticoagulants, initial encounter (2) Respiratory tract congestion with cough Current visit: Yes Status: Acute Category: Medical Code(s): R05 - Cough (3) DVT (deep venous thrombosis) Current visit: Yes Status: Acute Category: Medical Code(s): I82.409 - Acute embolism and thrombosis of unspecified deep veins of unspecified lower extremity (4) Melena Current visit: Yes Status: Acute Category: Medical Code(s): K92.1 - Melena (5) History of anemia Current visit: No Status: Chronic Category: Medical Code(s): Z86.2 - Personal history of diseases of the blood and blood-forming organs and certain disorders involving the immune mechanism (6) History of breast cancer Current visit: No Status: Chronic Category: Medical Code(s): Z85.3 - Personal history of malignant neoplasm of breast (7) Hypertension Current visit: No Status: Chronic Category: Medical Code(s): I10 - Essential (primary) hypertension (8) Hypokalemia Current visit: Yes Status: Acute Category: Medical Code(s): E87.6 - Hypokalemia (9) Congestive heart failure Current visit: Yes Status: Acute Category: Medical Code(s): I50.9 - Heart failure, unspecified (10) Hiatal hernia Current visit: Yes Status: Acute Category: Medical Code(s): K44.9 - Diaphragmatic hernia without obstruction or gangrene (11) Gastritis Current visit: Yes Status: Acute Category: Medical Code(s): K29.70 - Gastritis, unspecified, without bleeding (12) Pneumonia Problem details: Sputum positive for yeast Current visit: Yes Status: Acute Category: Medical Code(s): J18.9 - Pneumonia, unspecified organism - Assessment and plan all Dx Assessment and Plan for all problems:: Continue with diuresis with elevated BNP and edema with additional IV Lasix as well and add metolazone. Seemed to improve with steroids and will add Solu- Medrol. Continue to monitor CBC and BMP. Will repeat chest x-ray
--- NOTE | 2018-10-01 17:20 | Progress Note ---
Internal Medicine - PN: Subj *Date: 10/01/18 Interval history: The patient looks better this evening after diuresis. She has diuresed easily over 2000 cc. She seems to be breathing easier but still has a rattling cough. The chest x-ray did show the areas of infiltrates as prior. The chest x-ray was obtained this morning before diuresis. Exam Vital signs and Labs for Last 24 Hours: Temp Pulse Resp BP Pulse Ox 98.0 F 63 20 136/75 95 10/01/18 15:18 10/01/18 16:00 10/01/18 15:18 10/01/18 15:18 10/01/18 15:18 Laboratory Results - last 24 hr 10/01/18 05:53: WBC 13.2 H, RBC 3.12 L, Hgb 9.3 L, Hct 30.2 L, MCV 96.9, MCH 29.9, MCHC 30.9 L, RDW 14.5, Plt Count 249, MPV 7.8, Neut % (Auto) 82.0 H, Lymph % (Auto) 7.4 L, [place] % (Auto) 9.9 H, Eos % (Auto) 0.6, Baso % (Auto) 0.1, Neut # (Auto) 10.8 H, Lymph # (Auto) 1.0, [place] # (Auto) 1.3 H, Eos # (Auto) 0.1, Baso # (Auto) 0.0 10/01/18 05:53: Sodium 148 H, Potassium 4.0, Chloride 111 H, Carbon Dioxide 31, Anion Gap 10.0, BUN 37 H, Creatinine 2.01 H, Estimated Creat Clear 32, Estimated GFR 24 L, Est GFR ( Amer) 28 L, Glucose 105 D, Calcium 11.1 H 10/01/18 05:53: B-Natriuretic Peptide 1260 H I & O for Last 24 hours: Intake & Output 09/29/18 09/30/18 10/01/18 10/02/18 11:59 11:59 11:59 11:59 Intake Total 1201 / 1201 290 / 290 130 / 130 360 / 360 Output Total 1851 / 1851 1000 / 1000 2400 / 2400 1600 / 1600 Balance -650 / -650 -710 / -710 -2270 / -2270 -1240 / -1240 Weight 210 lb 2 oz 219 lb 2 oz 216 lb 9 oz - Constitutional no acute distress - *Routine Respiratory Exam Absent: respiratory distress - *Routine Cardiovascular Exam Present: RRR - *Routine Extremities Exam Comments: Edema appears less. Assessment and Plan (1) Anticoagulant causing adverse effect in therapeutic use Current visit: Yes Status: Acute Category: Medical Code(s): T45.515A - Adverse effect of anticoagulants, initial encounter (2) Respiratory tract congestion with cough Current visit: Yes Status: Acute Category: Medical Code(s): R05 - Cough (3) DVT (deep venous thrombosis) Current visit: Yes Status: Acute Category: Medical Code(s): I82.409 - Acute embolism and thrombosis of unspecified deep veins of unspecified lower extremity (4) Melena Current visit: Yes Status: Acute Category: Medical Code(s): K92.1 - Melena (5) History of anemia Current visit: No Status: Chronic Category: Medical Code(s): Z86.2 - Personal history of diseases of the blood and blood-forming organs and certain disorders involving the immune mechanism (6) History of breast cancer Current visit: No Status: Chronic Category: Medical Code(s): Z85.3 - Personal history of malignant neoplasm of breast (7) Hypertension Current visit: No Status: Chronic Category: Medical Code(s): I10 - Essential (primary) hypertension (8) Hypokalemia Current visit: Yes Status: Acute Category: Medical Code(s): E87.6 - Hypokalemia (9) Congestive heart failure Current visit: Yes Status: Acute Category: Medical Code(s): I50.9 - Heart failure, unspecified (10) Hiatal hernia Current visit: Yes Status: Acute Category: Medical Code(s): K44.9 - Diaphragmatic hernia without obstruction or gangrene (11) Gastritis Current visit: Yes Status: Acute Category: Medical Code(s): K29.70 - Gastritis, unspecified, without bleeding (12) Pneumonia Problem details: Sputum positive for yeast Current visit: Yes Status: Acute Category: Medical Code(s): J18.9 - Pneumonia, unspecified organism
[2018-10-02 06:51] LABS: Basophils % 0.1 % (0.1-2.0); Hematocrit 33.2 % (37.0-47.0); Hemoglobin 10.2 g/dL (12.2-16.2); Lymphocytes # 0.5 K/mm3 (0.7-4.5); Mean Corpuscular HGB Conc 30.7 g/dL (31.8-35.4); Mean Corpuscular Hemoglobin 29.8 pg (27.0-31.2); Mean Corpuscular Volume 97.1 fl (81-99); Mean Platelet Volume 7.8 fl (7.4-10.4); Monocytes # 0.5 K/mm3 (0.1-1.0); Monocytes % 5.2 % (1.7-9.3); Neutrophils # 8.5 K/mm3 (1.8-7.8); Neutrophils % 89.7 % (37.0-80.0); Platelet Count 244 K/mm3 (142-424); Red Blood Count 3.42 M/mm3 (4.20-5.40); Red Cell Distribution Width 14.3 % (11.5-17.5); White Blood Count 9.5 K/mm3 (4.8-10.8)
[2018-10-02 06:57] LABS: Anion Gap 8.5 mEq/L (5-15); Potassium 3.5 mmoL/L (3.5-5.1)
--- NOTE | 2018-10-02 08:29 | Progress Note ---
Internal Medicine - PN: Subj *Date: 10/02/18 *Time: 08:24 Interval history: Patient states she does not feel well today. She continues with a congested cough. She denies any difficulty with swallowing as well as nausea. She eats very little. She continues to deny any pain anyplace Selected Entries 09/30/18 04:17 10/01/18 03:22 10/02/18 03:29 Weight 219 lb 2 oz 216 lb 9 oz 211 lb 1 oz Laboratory Tests 10/02/18 10/02/18 05:50 05:50 WBC 9.5 D RBC 3.42 L Hgb 10.2 L Hct 33.2 L Neut % (Auto) 89.7 H Lymph % (Auto) 5.0 L [place] % (Auto) 5.2 Eos % (Auto) 0.0 L Baso % (Auto) 0.1 Neut # (Auto) 8.5 H Lymph # (Auto) 0.5 L Sodium 146 H Potassium 3.5 Chloride 107 Carbon Dioxide 34 H Anion Gap 8.5 BUN 39 H Creatinine 1.92 H Estimated Creat Clear 32 Estimated GFR 25 L Est GFR ( Amer) 30 L Glucose 151 H D Calcium 11.0 H Exam Vital signs and Labs for Last 24 Hours: Temp Pulse Resp BP Pulse Ox 97.8 F 89 19 139/68 93 L 10/02/18 08:00 10/02/18 08:00 10/02/18 08:00 10/02/18 08:00 10/02/18 08:00 Laboratory Results - last 24 hr 10/02/18 05:50: WBC 9.5 D, RBC 3.42 L, Hgb 10.2 L, Hct 33.2 L, MCV 97.1, MCH 29.8, MCHC 30.7 L, RDW 14.3, Plt Count 244, MPV 7.8, Neut % (Auto) 89.7 H, Lymph % (Auto) 5.0 L, [place] % (Auto) 5.2, Eos % (Auto) 0.0 L, Baso % (Auto) 0.1, Neut # (Auto) 8.5 H, Lymph # (Auto) 0.5 L, [place] # (Auto) 0.5, Eos # (Auto) 0.0, Baso # (Auto) 0.0 10/02/18 05:50: Sodium 146 H, Potassium 3.5, Chloride 107, Carbon Dioxide 34 H, Anion Gap 8.5, BUN 39 H, Creatinine 1.92 H, Estimated Creat Clear 32, Estimated GFR 25 L, Est GFR ( Amer) 30 L, Glucose 151 H D, Calcium 11.0 H I & O for Last 24 hours: Intake & Output 09/29/18 09/30/18 10/01/18 10/02/18 11:59 11:59 11:59 11:59 Intake Total 1201 / 1201 290 / 290 130 / 130 1020 / 1020 Output Total 1851 / 1851 1000 / 1000 2400 / 2400 3650 / 3650 Balance -650 / -650 -710 / -710 -2270 / -2270 -2630 / -2630 Weight 210 lb 2 oz 219 lb 2 oz 216 lb 9 oz 211 lb 1 oz Radiology Reports for the Last 24 Hours: IMPRESSION: Right perihilar and right upper lobe and left lower lobe pneumonic infiltrates with infiltrate versus scarring right base, the pneumonic changes are more prominent than on the previous film - Constitutional no acute distress Comments: More awake this morning. Speech is much more clear. Sitting up in the bed being fed Jell-O. - *Routine Respiratory Exam Comments: Bilateral coarse crackles throughout. Congested cough - *Routine Cardiovascular Exam Present: RRR - *Routine Abdominal Exam Present: soft, normoactive bowel sounds. Absent: tenderness - *Routine Extremities Exam Present: edema Comments: Less leg edema. Left leg slightly larger than the right - *Routine Neurological Exam Present: alert Made a joke this a.m. Assessment and Plan (1) Anticoagulant causing adverse effect in therapeutic use Current visit: Yes Status: Acute Category: Medical Code(s): T45.515A - Adverse effect of anticoagulants, initial encounter (2) Respiratory tract congestion with cough Current visit: Yes Status: Acute Category: Medical Code(s): R05 - Cough (3) DVT (deep venous thrombosis) Current visit: Yes Status: Acute Category: Medical Code(s): I82.409 - Acute embolism and thrombosis of unspecified deep veins of unspecified lower extremity (4) Melena Current visit: Yes Status: Acute Category: Medical Code(s): K92.1 - Melena (5) History of anemia Current visit: No Status: Chronic Category: Medical Code(s): Z86.2 - Personal history of diseases of the blood and blood-forming organs and certain disorders involving the immune mechanism (6) History of breast cancer Current visit: No Status: Chronic Category: Medical Code(s): Z85.3 - Personal history of malignant neoplasm of breast (7) Hypertension Current visit: No Status: Chronic Category: Medical Code(s): I10 - Essential (primary) hypertension (8) Hypokalemia Current visit: Yes Status: Acute Category: Medical Code(s): E87.6 - Hypokalemia (9) Congestive heart failure Current visit: Yes Status: Acute Category: Medical Code(s): I50.9 - Heart failure, unspecified (10) Hiatal hernia Current visit: Yes Status: Acute Category: Medical Code(s): K44.9 - Diaphragmatic hernia without obstruction or gangrene (11) Gastritis Current visit: Yes Status: Acute Category: Medical Code(s): K29.70 - Gastritis, unspecified, without bleeding (12) Pneumonia Problem details: Sputum positive for yeast Current visit: Yes Status: Acute Category: Medical Code(s): J18.9 - Pneumonia, unspecified organism - Assessment and plan all Dx Assessment and Plan for all problems:: White blood cell count has normalized. Hemoglobin is stable. Renal function has improved. She diuresed significantly yesterday with weight loss. We will continue with current care.
[2018-10-02 09:14] LABS: Lymphocytes % 6 % (10-50); Monocytes % 3 % (2-9); Neutrophils % 91 % (42-76); Total Cells Counted 100
[2018-10-02 09:16] LABS: Hypochromasia 1+
[2018-10-03 06:15] LABS: Hematocrit 32.2 % (37.0-47.0); Hemoglobin 10.3 g/dL (12.2-16.2); Lymphocytes % 8.3 % (10-50); Mean Corpuscular Hemoglobin 30.2 pg (27.0-31.2); Mean Corpuscular Volume 94.3 fl (81-99); Mean Platelet Volume 8.1 fl (7.4-10.4); Monocytes # 1.1 K/mm3 (0.1-1.0); Monocytes % 8.6 % (1.7-9.3); Neutrophils # 10.3 K/mm3 (1.8-7.8); Platelet Count 251 K/mm3 (142-424); Red Blood Count 3.41 M/mm3 (4.20-5.40); White Blood Count 12.4 K/mm3 (4.8-10.8)
[2018-10-03 06:27] LABS: Anion Gap 6.2 mEq/L (5-15); Calcium 10.9 mg/dL (8.5-10.1); Potassium 3.2 mmoL/L (3.5-5.1)
--- NOTE | 2018-10-03 08:18 | Progress Note ---
Internal Medicine - PN: Subj *Date: 10/03/18 *Time: 08:15 Interval history: Laboratory Tests 10/03/18 10/03/18 06:04 06:04 WBC 12.4 H D RBC 3.41 L Hgb 10.3 L Hct 32.2 L Plt Count 251 Neut % (Auto) 83.0 H Lymph % (Auto) 8.3 L Eos % (Auto) 0.0 L Baso % (Auto) 0.0 L Neut # (Auto) 10.3 H Sodium 144 Potassium 3.2 L Chloride 104 Carbon Dioxide 37 H Anion Gap 6.2 BUN 47 H Creatinine 2.04 H Estimated Creat Clear 30 Estimated GFR 23 L Est GFR ( Amer) 28 L Glucose 157 H Calcium 10.9 H Selected Entries 10/01/18 03:22 10/02/18 03:29 10/03/18 05:14 Weight 216 lb 9 oz 211 lb 1 oz 209 lb Patient states she is doing well. She is hungry and eating her breakfast. She states she did sleep. The cough remains bothersome. She denies pain. She agrees to try to get up out of bed today. Exam Vital signs and Labs for Last 24 Hours: Temp Pulse Resp BP Pulse Ox 97.6 F 68 16 132/63 91 L 10/03/18 08:00 10/03/18 08:00 10/03/18 08:00 10/03/18 08:00 10/03/18 08:00 Laboratory Results - last 24 hr 10/02/18 05:50: Total Counted 100, Neutrophils % (Manual) 91 H, Lymphocytes % (Manual) 6 L, Monocytes % (Manual) 3, Platelet Estimate Normal, Hypochromasia 1+ 10/03/18 06:04: WBC 12.4 H D, RBC 3.41 L, Hgb 10.3 L, Hct 32.2 L, MCV 94.3, MCH 30.2, MCHC 32.0, RDW 14.0, Plt Count 251, MPV 8.1, Neut % (Auto) 83.0 H, Lymph % (Auto) 8.3 L, [place] % (Auto) 8.6, Eos % (Auto) 0.0 L, Baso % (Auto) 0.0 L, Neut # (Auto) 10.3 H, Lymph # (Auto) 1.0, [place] # (Auto) 1.1 H, Eos # (Auto) 0.0, Baso # (Auto) 0.0 10/03/18 06:04: Sodium 144, Potassium 3.2 L, Chloride 104, Carbon Dioxide 37 H, Anion Gap 6.2, BUN 47 H, Creatinine 2.04 H, Estimated Creat Clear 30, Estimated GFR 23 L, Est GFR ( Amer) 28 L, Glucose 157 H, Calcium 10.9 H I & O for Last 24 hours: Intake & Output 09/30/18 10/01/18 10/02/18 10/03/18 11:59 11:59 11:59 11:59 Intake Total 290 / 290 180 / 180 1020 / 1020 1080 / 1080 Output Total 1000 / 1000 2400 / 2400 3650 / 3650 1100 / 1100 Balance -710 / -710 -2220 / -2220 -2630 / -2630 -20 / -20 Weight 219 lb 2 oz 216 lb 9 oz 211 lb 1 oz 209 lb - Constitutional no acute distress Comments: Awake and alert sitting up in the bed and eating her breakfast. She is being fed. - *Routine Respiratory Exam Comments: Bilateral coarse crackles throughout with occasional wheeze. Continues with congested cough - *Routine Cardiovascular Exam Present: RRR - *Routine Abdominal Exam Present: soft, normoactive bowel sounds. Absent: tenderness - *Routine Extremities Exam Comments: Less edema. Ankles and feet, ankles, and lower legs. - *Routine Neurological Exam Present: alert, oriented X3 Assessment and Plan (1) Anticoagulant causing adverse effect in therapeutic use Current visit: Yes Status: Acute Category: Medical Code(s): T45.515A - Adverse effect of anticoagulants, initial encounter (2) Respiratory tract congestion with cough Current visit: Yes Status: Acute Category: Medical Code(s): R05 - Cough (3) DVT (deep venous thrombosis) Current visit: Yes Status: Acute Category: Medical Code(s): I82.409 - Acute embolism and thrombosis of unspecified deep veins of unspecified lower extremity (4) Melena Current visit: Yes Status: Acute Category: Medical Code(s): K92.1 - Melena (5) History of anemia Current visit: No Status: Chronic Category: Medical Code(s): Z86.2 - Personal history of diseases of the blood and blood-forming organs and certain disorders involving the immune mechanism (6) History of breast cancer Current visit: No Status: Chronic Category: Medical Code(s): Z85.3 - Pe rsonal history of malignant neoplasm of breast (7) Hypertension Current visit: No Status: Chronic Category: Medical Code(s): I10 - Essential (primary) hypertension (8) Hypokalemia Current visit: Yes Status: Acute Category: Medical Code(s): E87.6 - Hypokalemia (9) Congestive heart failure Current visit: Yes Status: Acute Category: Medical Code(s): I50.9 - Heart failure, unspecified (10) Hiatal hernia Current visit: Yes Status: Acute Category: Medical Code(s): K44.9 - Diaphragmatic hernia without obstruction or gangrene (11) Gastritis Current visit: Yes Status: Acute Category: Medical Code(s): K29.70 - Gastritis, unspecified, without bleeding (12) Pneumonia Problem details: Sputum positive for yeast Current visit: Yes Status: Acute Category: Medical Code(s): J18.9 - Pneumonia, unspecified organism - Assessment and plan all Dx Assessment and Plan for all problems:: Will have physical therapy reevaluate her today. We will decrease steroid dose. Dr. Daley to see patient tomorrow.
--- NOTE | 2018-10-03 17:50 | Progress Note ---
Internal Medicine - PN: Subj *Date: 10/03/18 *Time: 17:47 Interval history: She has had a good day today. She has less congestion and is breathing easier. She appears comfortable at the present time and is smiling. She ate better today as well. She has been using her incentive spirometry. Physical therapy note is reviewed. Exam Vital signs and Labs for Last 24 Hours: Temp Pulse Resp BP Pulse Ox 97.6 F 80 20 120/61 90 L 10/03/18 15:48 10/03/18 16:00 10/03/18 15:48 10/03/18 15:48 10/03/18 15:48 Laboratory Results - last 24 hr 10/03/18 06:04: WBC 12.4 H D, RBC 3.41 L, Hgb 10.3 L, Hct 32.2 L, MCV 94.3, MCH 30.2, MCHC 32.0, RDW 14.0, Plt Count 251, MPV 8.1, Neut % (Auto) 83.0 H, Lymph % (Auto) 8.3 L, [place] % (Auto) 8.6, Eos % (Auto) 0.0 L, Baso % (Auto) 0.0 L, Neut # (Auto) 10.3 H, Lymph # (Auto) 1.0, [place] # (Auto) 1.1 H, Eos # (Auto) 0.0, Baso # (Auto) 0.0 10/03/18 06:04: Sodium 144, Potassium 3.2 L, Chloride 104, Carbon Dioxide 37 H, Anion Gap 6.2, BUN 47 H, Creatinine 2.04 H, Estimated Creat Clear 30, Estimated GFR 23 L, Est GFR ( Amer) 28 L, Glucose 157 H, Calcium 10.9 H I & O for Last 24 hours: Intake & Output 10/01/18 10/02/18 10/03/18 10/04/18 11:59 11:59 11:59 11:59 Intake Total 180 / 180 1070 / 1070 1080 / 1080 Output Total 2400 / 2400 3650 / 3650 1100 / 1100 1100 / 1100 Balance -2220 / -2220 -2580 / -2580 -20 / -20 -1100 / -1100 Weight 216 lb 9 oz 211 lb 1 oz 209 lb - Constitutional no acute distress - *Routine Respiratory Exam Comments: Her lungs are clearer particularly at the apices. - *Routine Cardiovascular Exam Present: RRR - *Routine Neurological Exam Present: alert Smiling and interactive Assessment and Plan (1) Anticoagulant causing adverse effect in therapeutic use Current visit: Yes Status: Acute Category: Medical Code(s): T45.515A - Adverse effect of anticoagulants, initial encounter (2) Respiratory tract congestion with cough Current visit: Yes Status: Acute Category: Medical Code(s): R05 - Cough (3) DVT (deep venous thrombosis) Current visit: Yes Status: Acute Category: Medical Code(s): I82.409 - Acute embolism and thrombosis of unspecified deep veins of unspecified lower extremity (4) Melena Current visit: Yes Status: Acute Category: Medical Code(s): K92.1 - Melena (5) History of anemia Current visit: No Status: Chronic Category: Medical Code(s): Z86.2 - Perso nal history of diseases of the blood and blood-forming organs and certain disorders involving the immune mechanism (6) History of breast cancer Current visit: No Status: Chronic Category: Medical Code(s): Z85.3 - Personal history of malignant neoplasm of breast (7) Hypertension Current visit: No Status: Chronic Category: Medical Code(s): I10 - Essential (primary) hypertension (8) Hypokalemia Current visit: Yes Status: Acute Category: Medical Code(s): E87.6 - Hypokalemia (9) Congestive heart failure Current visit: Yes Status: Acute Category: Medical Code(s): I50.9 - Heart failure, unspecified (10) Hiatal hernia Current visit: Yes Status: Acute Category: Medical Code(s): K44.9 - Diaphragmatic hernia without obstruction or gangrene (11) Gastritis Current visit: Yes Status: Acute Category: Medical Code(s): K29.70 - Gastritis, unspecified, without bleeding (12) Pneumonia Problem details: Sputum positive for yeast Current visit: Yes Status: Acute Category: Medical Code(s): J18.9 - Pneumonia, unspecified organism - Assessment and plan all Dx Assessment and Plan for all problems:: Continue present treatment. She needs to be discharged soon. Obviously we have to watch her daily weights very carefully.
[2018-10-04 06:30] LABS: Hematocrit 32.7 % (37.0-47.0); Hemoglobin 10.4 g/dL (12.2-16.2); Lymphocytes # 0.7 K/mm3 (0.7-4.5); Lymphocytes % 6.8 % (10-50); Mean Corpuscular HGB Conc 31.9 g/dL (31.8-35.4); Mean Corpuscular Hemoglobin 30.3 pg (27.0-31.2); Mean Platelet Volume 8.4 fl (7.4-10.4); Monocytes # 0.5 K/mm3 (0.1-1.0); Monocytes % 4.8 % (1.7-9.3); Neutrophils # 9.5 K/mm3 (1.8-7.8); Neutrophils % 88.4 % (37.0-80.0); Platelet Count 224 K/mm3 (142-424); Red Blood Count 3.44 M/mm3 (4.20-5.40); White Blood Count 10.7 K/mm3 (4.8-10.8)
[2018-10-04 06:50] LABS: Anion Gap 6.6 mEq/L (5-15); Calcium 10.7 mg/dL (8.5-10.1); Potassium 3.6 mmoL/L (3.5-5.1)
[2018-10-04 07:42] LABS: Lymphocytes % 7 % (10-50); Monocytes % 3 % (2-9); Neutrophils % 90 % (42-76); Total Cells Counted 100
--- NOTE | 2018-10-04 08:22 | Progress Note ---
Internal Medicine - PN: Subj *Date: 10/04/18 *Time: 08:19 Interval history: Patient states she is feeling a little better today. Her son says she had a good day yesterday but was too tired to work with PT when they came. She did rest well last night and is eating breakfast this am. Her weight is down a few pounds. She denies any pain. Exam Vital signs and Labs for Last 24 Hours: Temp Pulse Resp BP Pulse Ox 98.4 F 78 19 133/75 93 L 10/04/18 07:38 10/04/18 07:38 10/04/18 07:38 10/04/18 07:38 10/04/18 07:38 Laboratory Results - last 24 hr 10/04/18 05:27: WBC 10.7, RBC 3.44 L, Hgb 10.4 L, Hct 32.7 L, MCV 95.0, MCH 30.3, MCHC 31.9, RDW 14.0, Plt Count 224, MPV 8.4, Neut % (Auto) 88.4 H, Lymph % (Auto) 6.8 L, [place] % (Auto) 4.8, Eos % (Auto) 0.0 L, Baso % (Auto) 0.0 L, Neut # (Auto) 9.5 H, Lymph # (Auto) 0.7, [place] # (Auto) 0.5, Eos # (Auto) 0.0, Baso # (Auto) 0.0, Total Counted 100, Neutrophils % (Manual) 90 H, Lymphocytes % (Manual) 7 L, Monocytes % (Manual) 3, Platelet Estimate Normal 10/04/18 05:27: Sodium 146 H, Potassium 3.6, Chloride 105, Carbon Dioxide 38 H, Anion Gap 6.6, BUN 57 H, Creatinine 1.98 H, Estimated Creat Clear 31, Estimated GFR 24 L, Est GFR ( Amer) 29 L, Glucose 164 H, Calcium 10.7 H I & O for Last 24 hours: Intake & Output 10/01/18 10/02/18 10/03/18 10/04/18 11:59 11:59 11:59 11:59 Intake Total 180 / 180 1070 / 1070 1080 / 1080 360 / 360 Output Total 2400 / 2400 3650 / 3650 1100 / 1100 2500 / 2500 Balance -2220 / -2220 -2580 / -2580 -20 / -20 -2140 / -2140 Weight 216 lb 9 oz 211 lb 1 oz 209 lb - Constitutional no acute distress - *Routine Respiratory Exam Present: rales (bibasilar), wheezes - *Routine Cardiovascular Exam Present: RRR - *Routine Abdominal Exam Present: soft, normoactive bowel sounds. Absent: tenderness - *Routine Extremities Exam Present: edema (less bilateral LE edema) - *Routine Neurological Exam Present: alert, oriented X3 Assessment and Plan (1) Anticoagulant causing adverse effect in therapeutic use Current visit: Yes Status: Acute Category: Medical Code(s): T45.515A - Adverse effect of anticoagulants, initial encounter (2) Respiratory tract congestion with cough Current visit: Yes Status: Acute Category: Medical Code(s): R05 - Cough (3) DVT (deep venous thrombosis) Current visit: Yes Status: Acute Category: Medical Code(s): I82.409 - Acute embolism and thrombosis of unspecified deep veins of unspecified lower extremity (4) Melena Current visit: Yes Status: Acute Category: Medical Code(s): K92.1 - Melena (5) History of anemia Current visit: No Status: Chronic Category: Medical Code(s): Z86.2 - Personal history of diseases of the blood and blood-forming organs and certain disorders involving the immune mechanism (6) History of breast cancer Current visit: No Status: Chronic Category: Medical Code(s): Z85.3 - Personal history of malignant neoplasm of breast (7) Hypertension Current visit: No Status: Chronic Category: Medical Code(s): I10 - Essential (primary) hypertension (8) Hypokalemia Current visit: Yes Status: Acute Category: Medical Code(s): E87.6 - Hypokalemia (9) Congestive heart failure Current visit: Yes Status: Acute Category: Medical Code(s): I50.9 - Heart failure, unspecified (10) Hiatal hernia Current visit: Yes Status: Acute Category: Medical Code(s): K44.9 - [place] phragmatic hernia without obstruction or gangrene (11) Gastritis Current visit: Yes Status: Acute Category: Medical Code(s): K29.70 - Gastritis, unspecified, without bleeding (12) Pneumonia Problem details: Sputum positive for yeast Current visit: Yes Status: Acute Category: Medical Code(s): J18.9 - Pneumonia, unspecified organism - Assessment and plan all Dx Assessment and Plan for all problems:: Will get a repeat CXR and will give a dose of IV lasix today. [facility]
--- NOTE | 2018-10-04 15:30 | Consult Report ---
*Admission Date: 09/24/18 *Chief complaint: goiter/swelling of neck *History of present illness: This is an 83-year-old L seen in consultation from the service of Dr. Nix for possible esophagogastroduodenoscopy. Please see forwarded copy of HPI from admission H&P below: Ms. Bautista is an 83-year-old female who is a resident of [facility] with a history of DVT, recent pneumonia, breast cancer with lumpectomy, anemia, hypertension, GERD, dementia, chronic renal failure, and who was rece ntly discharged from [facility] with a stay from September 17 - September 22, 2018 with pneumonia, DVT, and CHF. Patient was sent from [facility] to the emergency room after having black stools for 2 days. Patient states she just did not feel well but denies any abdominal pain, nausea or vomiting. She does give conflicting histories. In the emergency room with evaluation she had a hemoglobin drop and thus was admitted for administration of blood and further evaluation. This a.m. the patient's main complaint is her cough. She states it kept her awake all night has been bothering her since discharge from the hospital last week. She states she is sometimes short of breath. She continues to deny chest and abdominal pain, nausea, vomiting, and diarrhea. She states she has not coughed up or vomited any blood or seen blood in her stools. She states she has been going to the dining room for her meals. [facility] History I have reviewed the patient's past medical history: Yes Medical History: Reports:: Arrhythmia, Cancer (lumpectomy), Congestive Heart Failure, Deep Vein Thrombosis, Dementia, Gastroesophageal Reflux Disease(GERD), Hyperlipidemia, Hypertension, Internal Pacemaker, Peripheral Vascular Disease, Renal Insufficiency, Urinary Tract Infection Denies:: Diabetes Mellitus Type 1, Diabetes Mellitus Type 2, MRSA, Seizures *Have you ever received a pneumonia vaccine?: Yes *Have you received a flu vaccine this season?: Yes Other Medical History: Reports: Anemia, Arthritis, Cataracts Laterality Cases: Right: Lumpectomy, Bilateral: Cataract, Other Other Surgeries: Yes: Cholecystectomy, Colonoscopy, Pacemaker, Other (left breast lumpectomy) Amputation: No Fractures: No - *Social History Educational Level: Completed College Smoking Status: Never smoker Alcohol Intake: never Alcohol Intake Frequency:: other Substance Use Type: denies use *Occupational Status:: retired Housing: assisted living facility Household Members: caregiver, other *Travel in the last 8 weeks: None - Psychiatric History Expresses thoughts of harming self/others: None Suicide Plan Description: No Plan Family Hx:: Hyperlipidemia, Hypertension Review of Systems - ENT Reports neck lump - *Neurologic Reports weakness, Denies headache(s), Denies fainting, Denies dizziness Meds Home Medications Medication Instructions Recorded Confirmed Type acetaminophen 325 mg tablet 650 mg PO Q4HP PRN 12/14/17 09/23/18 History atorvastatin 20 mg tablet 20 mg PO HS 30 Days #30 12/14/17 09/23/18 History cholecalciferol (vitamin D3) 2,000 2,000 unit PO DAILY cap 12/14/17 09/23/18 History unit capsule doxazosin 2 mg tablet 2 mg PO HS 30 Days #30 12/14/17 09/23/18 History lansoprazole 15 mg capsule,delayed 15 mg PO DAILY 30 Days #30 12/14/17 09/23/18 History release losartan 100 mg tablet 100 mg PO DAILY 30 Days #30 12/14/17 09/23/18 History memantine 28 mg capsule 28 mg PO DAILY 30 Days #30 12/14/17 09/23/18 History sprinkle,extended release 24hr nadolol 40 mg tablet 40 mg PO DAILY 30 Days #30 12/14/17 09/23/18 History polyethylene glycol 3350 17 17 gm PO DAILY 12/14/17 09/23/18 History gram/dose oral powder potassium chloride ER 10 mEq 10 meq PO DAILY 14 Days #14 12/14/17 09/23/18 History tablet,extended release Ferrous Sulfate [Ferrous Sulfate 325 mg PO DAILY 09/17/18 09/23/18 History 325mg Tablet] Aspirin [Aspirin 325mg Tab] 325 mg PO HS 09/18/18 09/23/18 History Melatonin/Pyridoxine HCl (B6) 1 each PO HSP PRN 09/18/18 09/23/18 History [Melatonin 1 mg Tablet] Furosemide [Lasix 40mg tablet] 40 mg PO BIDL 09/23/18 09/23/18 History Ipratropium/Albuterol Sulfate 3 ml IH TIDRT 09/23/18 09/23/18 History [Duoneb 3mL neb] Rivaroxaban [Xarelto 15mg tablet] 15 mg PO BIDWM 09/23/18 09/23/18 History Allergies Allergy/AdvReac Type Severity Reaction Status Date / Time Penicillins [PENICILLINS] Allergy Mild Verified 09/17/18 17:15 Exam Vital signs and Labs for Last 24 Hours: Temp Pulse Resp BP Pulse Ox 99.0 F 87 16 90/52 L 94 L 10/04/18 11:12 10/04/18 11:12 10/04/18 11:12 10/04/18 11:12 10/04/18 11:12 Laboratory Results - last 24 hr 10/04/18 05:27: WBC 10.7, RBC 3.44 L, Hgb 10.4 L, Hct 32.7 L, MCV 95.0, MCH 30.3, MCHC 31.9, RDW 14.0, Plt Count 224, MPV 8.4, Neut % (Auto) 88.4 H, Lymph % (Auto) 6.8 L, [place] % (Auto) 4.8, Eos % (Auto) 0.0 L, Baso % (Auto) 0.0 L, Neut # (Auto) 9.5 H, Lymph # (Auto) 0.7, Glasscock # (Auto) 0.5, Eos # (Auto) 0.0, Baso # (Auto) 0.0, Total Counted 100, Neutrophils % (Manual) 90 H, Lymphocytes % (Manual) 7 L, Monocytes % (Manual) 3, Platelet Estimate Normal 10/04/18 05:27: Sodium 146 H, Potassium 3.6, Chloride 105, Carbon Dioxide 38 H, Anion Gap 6.6, BUN 57 H, Creatinine 1.98 H, Estimated Creat Clear 31, Estimated GFR 24 L, Est GFR ( Amer) 29 L, Glucose 164 H, Calcium 10.7 H I & O for Last 24 hours: Intake & Output 10/01/18 10/02/18 10/03/18 10/04/18 23:59 23:59 23:59 23:59 Intake Total 930 / 930 770 / 770 650 / 650 480 / 480 Output Total 4500 / 4500 2650 / 2650 1100 / 1100 1400 / 1400 Balance -3570 / -3570 -1880 / -1880 -450 / -450 -920 / -920 Weight 216 lb 9 oz 211 lb 1 oz 209 lb - *Routine HEENT Exam Comments: This patient was examined while she was hospitalized on the second floor on October 04, 2018 at 4 PM. She has had a large mass in her left thyroid for well over a year, it has not changed since my last examination in June 2018. There is no cervical lymphadenopathy. And the remainder of the head and neck examination was noncontributory. She is not in any condition to have thyroid surgery at this time. And I would be pleased to review matters if her general condition improves. Internal Medicine - CN: Reslt - Labs CBC & Chem 7: 10/04/18 05:27 10/04/18 05:27 Labs: Short CBC 10/04/18 Range/Units 05:27 WBC 10.7 (4.8-10.8) K/mm3 Hgb 10.4 L (12.2-16.2) g/dL Hct 32.7 L (37.0-47.0) % Plt Count 224 (142-424) K/mm3 [facility] 10/04/18 05:27 Sodium 146 H Potassium 3.6 Chloride 105 Carbon Dioxide 38 H BUN 57 H Creatinine 1.98 H Glucose 164 H Calcium 10.7 H Assessment and Plan (1) Anticoagulant causing adverse effect in therapeutic use Current visit: Yes Status: Acute Category: Medical Code(s): T45.515A - Adverse effect of anticoagulants, initial encounter (2) Respiratory tract congestion with cough Current visit: Yes Status: Acute Category: Medical Code(s): R05 - Cough (3) DVT (deep venous thrombosis) Current visit: Yes Status: Acute Category: Medical Code(s): I82.409 - Acute embolism and thrombosis of unspecified deep veins of unspecified lower extremity (4) Melena Current visit: Yes Status: Acute Category: Medical Code(s): K92.1 - Melena (5) History of anemia Current visit: No Status: Chronic Category: Medical Code(s): Z86.2 - Personal history of diseases of the blood and blood-forming organs and certain disorders involving the immune mechanism (6) History of breast cancer Current visit: No Status: Chronic Category: Medical Code(s): Z85.3 - Personal history of malignant neoplasm of breast (7) Hypertension Current visit: No Status: Chronic Category: Medical Code(s): I10 - Essential (primary) hypertension (8) Hypokalemia Current visit: Yes Status: Acute Category: Medical Code(s): E87.6 - Hypokalemia (9) Congestive heart failure Current visit: Yes Status: Acute Category: Medical Code(s): I50.9 - Heart failure, unspecified (10) Hiatal hernia Current visit: Yes Status: Acute Category: Medical Code(s): K44.9 - Diaphragmatic hernia without obstruction or gangrene (11) Gastritis Current visit: Yes Status: Acute Category: Medical Code(s): K29.70 - Gastritis, unspecified, without bleeding (12) Pneumonia Problem details: Sputum positive for yeast Current visit: Yes Status: Acute Category: Medical Code(s): J18.9 - Pneumonia, unspecified organism
--- NOTE | 2018-10-05 08:22 | Progress Note ---
Internal Medicine - PN: Subj *Date: 10/05/18 *Time: 08:14 Interval history: Patient states she is very tired this morning. Her son said she has been asleep since he has been here. She ate very little breakfast. She denies any pain this morning. She still has a very congested cough. Exam Vital signs and Labs for Last 24 Hours: Temp Pulse Resp BP Pulse Ox 97.9 F 76 22 121/63 93 L 10/05/18 04:00 10/05/18 06:42 10/05/18 04:00 10/05/18 04:00 10/05/18 06:42 I & O for Last 24 hours: Intake & Output 10/02/18 10/03/18 10/04/18 10/05/18 11:59 11:59 11:59 11:59 Intake Total 1070 / 1070 1130 / 1130 360 / 360 890 / 890 Output Total 3650 / 3650 1100 / 1100 2500 / 2500 950 / 950 Balance -2580 / -2580 30 / 30 -2140 / -2140 -60 / -60 Weight 211 lb 1 oz 209 lb 209 lb 1 oz - Constitutional no acute distress (very tired this am) - *Routine Respiratory Exam Present: rales, rhonchi - *Routine Cardiovascular Exam Present: RRR - *Routine Abdominal Exam Present: soft, normoactive bowel sounds. Absent: tenderness - *Routine Extremities Exam Present: edema (trace bilateral LE edema) Assessment and Plan (1) Anticoagulant causing adverse effect in therapeutic use Current visit: Yes Status: Acute Category: Medical Code(s): T45.515A - Adverse effect of anticoagulants, initial encounter (2) Respiratory tract congestion with cough Current visit: Yes Status: Acute Category: Medical Code(s): R05 - Cough (3) DVT (deep venous thrombosis) Current visit: Yes Status: Acute Category: Medical Code(s): I82.409 - Acute embolism and thrombosis of unspecified deep veins of unspecified lower extremity (4) Melena Current visit: Yes Status: Acute Category: Medical Code(s): K92.1 - Melena (5) History of anemia Current visit: No Status: Chronic Category: Medical Code(s): Z86.2 - Personal history of diseases of the blood and blood-forming organs and certain disorders involving the immune mechanism (6) History of breast cancer Current visit: No Status: Chronic Category: Medical Code(s): Z85.3 - Personal history of malignant neoplasm of breast (7) Hypertension Current visit: No Status: Chronic Category: Medical Code(s): I10 - Essential (primary) hypertension (8) Hypokalemia Current visit: Yes Status: Acute Category: Medical Code(s): E87.6 - Hypokalemia (9) Congestive heart failure Current visit: Yes Status: Acute Category: Medical Code(s): I50.9 - Heart failure, unspecified (10) Hiatal hernia Current visit: Yes Status: Acute Category: Medical Code(s): K44.9 - Diaphragmatic hernia without obstruction or gangrene (11) Gastritis Current visit: Yes Status: Acute Category: Medical Code(s): K29.70 - Gastritis, unspecified, without bleeding (12) Pneumonia Problem details: Sputum positive for yeast Current visit: Yes Status: Acute Category: Medical Code(s): J18.9 - Pneumonia, unspecified organism - Assessment and plan all Dx Assessment and Plan for all problems:: Patient is lethargic this morning. Her son states she has a bed at the long-term on the skilled side. Will discuss further care with Dr. Nix. They were unable to place a PICC line yesterday.
--- NOTE | 2018-10-05 12:42 | Discharge Summary ---
General - General Admission date:: 09/23/18 Discharge date: 10/05/18 HPI HPI: Ms. Bautista is an 83-year-old female who is a resident of [facility] with a history of DVT, recent pneumonia, breast cancer with lumpectomy, anemia, hypertension, GERD, dementia, chronic renal failure, and who was recently discharged from [facility] with a stay from September 17 - September 22, 2018 with pneumonia, DVT, and CHF. Patient was sent from [facility] to the emergency room after having black stools for 2 days. Patient states she just did not feel well but denies any abdominal pain, nausea or vomiting. She does give conflicting histories. In the emergency room with evaluation she had a hemoglobin drop and thus was admitted for administration of blood and further evaluation. This a.m. the patient's main complaint is her cough. She states it kept her awake all night has been bothering her since discharge from the hospital last week. She states she is sometimes short of breath. She continues to deny chest and abdominal pain, nausea, vomiting, and diarrhea. She states she has not coughed up or vomited any blood or seen blood in her stools. She states she has been going to the dining room for her meals. Hospital Course Hospital Course: The patient received 2 units of packed red blood cells. A surgical consult was ordered. Anticoagulant therapy was held until after she was seen by a surgeon. She was started on a PPI. Duo nebs were increased to 4 times a day. She was placed on Mucinex and guaifenesin. Her renal function improved. Due to her recent CHF while hospitalized previously, her IV fluids were decreased to 75/hr. Her potassium was low and had to be replaced. Levaquin was added to her antibiotic regimen. Dr. Dodson saw the patient and performed an EGD. It showed no active bleeding, a somewhat tortuous esophagus, a large sliding hiatal hernia with significant associated inflammation, moderate patchy gastritis, and severe inflammation of the distal antrum/pyloric channel. Dr. Dodson recommended continuing PPIs and monitoring her H&H. He felt she may be able to restart Xarelto in the near future if her hemoglobin remained stable. She had a repeat chest x-ray showing low lung volumes with left basilar atelectasis versus infiltrate. She did have some difficulty swallowing after her EGD and a swallowing evaluation was ordered. The speech therapist did make adjustments to her diet. Her sputum culture came back positive for yeast, therefore she was started on some oral nystatin. She was given numerous doses of IV Lasix due to increased weight and rales in her lungs. Her weight did decrease. Her family was concerned about her having pain and requested some pain medication. She was started on a low-dose of morphine for generalized discomfort and was given a dose of Solu-Medrol. Her blood pressure did get low after the morphine dose, therefore it was not repeated. She had a BNP rechecked and it was elevated and she was beginning to develop some edema, therefore she was given additional Lasix and metolazone was added. She did seem to improve after the steroids, therefore Solu-Medrol was added as well. She had a repeat chest x-ray showing areas of infiltrates as the prior chest x- rays had showed. Her hemoglobin did remain stable and her renal function improved. She was diuresing significantly with Lasix and metolazone. She had an echo showing a mildly enlarged left atrium, normal left ventricular size, mild concentric left ventricular hypertrophy, and an EF of 50%. It also showed a thickened and calcified aortic valve without evidence of stenosis. Physical therapy was ordered for an evaluation. Dr. Daley was also consulted due to a thyroid mass. Therapy saw the patient and did feel that once her shortness of air and pneumonia status improved, she could be discharged to a longterm facility for possible hospice versus continued skilled care. Dr. Daley did see the patient and felt that the mass in her thyroid had not changed significantly in the past year. The patient was therefore not a candidate for any type of surgery. The patient had another repeat chest x-ray showing improving bibasilar airspace disease with continued bilateral lower lobe atelectasis. A PICC line was ordered but was unable to be placed. She was stable to be discharged to [facility] and will need continued antibiotics and therapy if she will tolerate this. Objective Vital signs: Temp Pulse Resp BP Pulse Ox 97.4 F L 80 20 115/57 L 92 L 10/05/18 08:00 10/05/18 10:05 10/05/18 08:00 10/05/18 08:00 10/05/18 08:00 Narrative: - Constitutional no acute distress Comments: Has received 2 units of packed red blood cells. - *Routine HEENT Exam Head: Present: normocephalic, atraumatic Eye: Present: PERRL. Absent: conjunctival icterus, scleral injection ENT: Present: mucous membranes moist, oropharynx clear - *Routine Neck Exam Present: thyromegaly. 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 Frequent congested cough - *Routine Cardiovascular Exam Present: RRR - *Routine Abdominal Exam Present: soft, normoactive bowel sounds. Absent: tenderness, distended, guarding - *Routine Extremities Exam Comments: Bilateral leg edema greater on the left. Much improved since last hospitalization. Left leg without tenderness or palpable masses. - *Routine Neurological Exam Present: alert, moving all extremities Pleasantly confused DS: Diagnosis - Discharge Diagnosis (1) Anticoagulant causing adverse effect in therapeutic use Status: Acute (2) Respiratory tract congestion with cough Status: Acute (3) DVT (deep venous thrombosis) Status: Acute (4) Melena Status: Acute (5) History of anemia Status: Chronic (6) History of breast cancer Status: Chronic (7) Hypertension Status: Chronic (8) Hypokalemia Status: Acute (9) Congestive heart failure Status: Acute (10) Hiatal hernia Status: Acute (11) Gastritis Status: Acute (12) Pneumonia Status: Acute Problem details: Sputum positive for yeast Discharge Plan - Patient Discharge Instructions ACTIVITY: Up in chair, Up with assistance DIET: advance to your usual diet Patient Instructions: Pneumonia-Adult, Deep Vein Thrombosis, Upper GI Endoscopy, DI for Heart Failure, DI for Gastritis, Peripherally Inserted Central Catheter, Peripherally Inserted Central Catheter Infections, Gastrointestinal Bleeding - Follow up Plan Follow up with: Ramesh Nix MD [Primary Care Provider] - Disposition: er [facility] Home Medications: Home Medications Medication Instructions Recorded Confirmed Type acetaminophen 325 mg tablet 650 mg PO Q4HP PRN 12/14/17 09/23/18 History atorvastatin 20 mg tablet 20 mg PO HS 30 Days #30 12/14/17 09/23/18 History cholecalciferol (vitamin D3) 2,000 2,000 unit PO DAILY cap 12/14/17 09/23/18 History unit capsule doxazosin 2 mg tablet 2 mg PO HS 30 Days #30 12/14/17 09/23/18 History lansoprazole 15 mg capsule,delayed 15 mg PO DAILY 30 Days #30 12/14/17 09/23/18 History release losartan 100 mg tablet 100 mg PO DAILY 30 Days #30 12/14/17 09/23/18 History memantine 28 mg capsule 28 mg PO DAILY 30 Days #30 12/14/17 09/23/18 History sprinkle,extended release 24hr nadolol 40 mg tablet 40 mg PO DAILY 30 Days #30 12/14/17 09/23/18 History polyethylene glycol 3350 17 17 gm PO DAILY 12/14/17 09/23/18 History gram/dose oral powder potassium chloride ER 10 mEq 10 meq PO DAILY 14 Days #14 12/14/17 09/23/18 History tablet,extended release Ferrous Sulfate [Ferrous Sulfate 325 mg PO DAILY 09/17/18 09/23/18 History 325mg Tablet] Aspirin [Aspirin 325mg Tab] 325 mg PO HS 09/18/18 09/23/18 History Melatonin/Pyridoxine HCl (B6) 1 each PO HSP PRN 09/18/18 09/23/18 History [Melatonin 1 mg Tablet] Furosemide [Lasix 40mg tablet] 40 mg PO BIDL 09/23/18 09/23/18 History Ipratropium/Albuterol Sulfate 3 ml IH TIDRT 09/23/18 09/23/18 History [Duoneb 3mL neb] Carvedilol [Coreg 12.5mg 12.5 mg PO BID #60 tablet 10/05/18 Rx Tablet] Enoxaparin Sodium [Lovenox 40 mg SQ DAILY #30 syringe 10/05/18 Rx 40mg/0.4mL syringe] Nystatin [Nystatin Susp 500,000 500,000 unit PO DAILY 30 Days #30 10/05/18 Rx Units/5mL Udc] udc Potassium Chloride [Klor-con 20 20 meq PO BID #60 tablet 10/05/18 Rx mEq tablet] cefTAZidime [Fortaz 2GM Vial] 2 gm IV Q12H 7 Days vial 10/05/18 Rx guaiFENesin [Mucinex 600mg tablet] 600 mg PO BID #60 tab.er.12h 10/05/18 Rx metOLazone [metOLazone 2.5mg 2.5 mg PO DAILY #30 tablet 10/05/18 Rx Tablet] predniSONE [Prednisone 20mg 20 mg PO DAILY #30 tab 10/05/18 Rx Tab] Prescriptions/Medication Reconciliation: New cefTAZidime [Fortaz 2GM Vial] 2 gm IV Q12H 7 Days vial Enoxaparin Sodium [Lovenox 40mg/0.4mL syringe] 40 mg SQ DAILY #30 syringe guaiFENesin [Mucinex 600mg tablet] 600 mg PO BID #60 tab.er.12h metOLazone [metOLazone 2.5mg Tablet] 2.5 mg PO DAILY #30 tablet Potassium Chloride [Klor-con 20 mEq tablet] 20 meq PO BID #60 tablet Carvedilol [Coreg 12.5mg Tablet] 12.5 mg PO BID #60 tablet Nystatin [Nystatin Susp 500,000 Units/5mL Udc] 500,000 unit PO DAILY 30 Days #30 udc predniSONE [Prednisone 20mg Tab] 20 mg PO DAILY #30 tab Continue lansoprazole 15 mg capsule,delayed release 15 mg PO DAILY 30 Days #30 potassium chloride ER 10 mEq tablet,extended release 10 meq PO DAILY 14 Days #14 nadolol 40 mg tablet 40 mg PO DAILY 30 Days #30 atorvastatin 20 mg tablet 20 mg PO HS 30 Days #30 doxazosin 2 mg tablet 2 mg PO HS 30 Days #30 memantine 28 mg capsule sprinkle,extended release 24hr 28 mg PO DAILY 30 Days #30 polyethylene glycol 3350 17 gram/dose oral powder 17 gm PO DAILY cholecalciferol (vitamin D3) 2,000 unit capsule 2,000 unit PO DAILY cap acetaminophen 325 mg tablet 650 mg PO Q4HP PRN PRN Reason: pain losartan 100 mg tablet 100 mg PO DAILY 30 Days #30 Ferrous Sulfate [Ferrous Sulfate 325mg Tablet] 325 mg PO DAILY Aspirin [Aspirin 325mg Tab] 325 mg PO HS Melatonin/Pyridoxine HCl (B6) [Melatonin 1 mg Tablet] 1 each PO HSP PRN PRN Reason: Sleep Furosemide [Lasix 40mg tablet] 40 mg PO BIDL Ipratropium/Albuterol Sulfate [Duoneb 3mL neb] 3 ml IH TIDRT Discontinued Rivaroxaban [Xarelto 15mg tablet] 15 mg PO BIDWM
== END 2018-10-05 16:50 | DRG 393 ==
LOC: ER 19:17 → ICU 19:17 → OBSVTOIN 22:55 → ICU 22:59 → 2ND 09-24 21:15 → UNDODISIN 10-03 16:15
PROVIDERS: ADMIT Family Medicine; ATTEND Family Medicine
CPT/HCPCS: 36415; 36569; 71010; 71045; 74150; 80048; 80053; 81001; 82272; 83605; 83880; 84132; 85007; 85014; 85018; 85025; 85651; 86140; 86677; 86850; 87040; 87070; 87205; 87275; 87276; 92610; 93306; 94640; 94761; 96365; 96367; 96375; 97110; 97162; 97163; 97530; 99285; C1751; G0328; J1956; J2405; P9016

== ENCOUNTER 2018-10-09 10:04 | Observation (INO) ==
--- NOTE | 2018-10-09 10:19 | Emergency Department Note ---
ED Disposition Clinical Impression: Upper GI bleeding, Anticoagulant adverse reaction, LLL pneumonia, Weakness Disposition: Still a Patient Condition on Discharge: Fair Instructions: DI for Gastrointestinal Bleeding Referrals: Provider,Referral, [Referring] - - Critical Care Critical Care Time: No Attestation: On 10/09/18, the high probability of a clinically significant, sudden or life threatening deterioration of the following system(s) required my full and direct attention, intervention and personal management. The time I documented below is in addition to time spent performing reported procedures but includes the following listed in this critical care notation. Medical Decision Making - Medical Records Medical records reviewed: Yes: I reviewed the patient's medical records. - Darci Inquiry Pt receiving controlled substance: No Darci was queried for this patient: No Vital Signs: 10/09/18 10:05 Temperature 97.9 F Temperature Source Oral Pulse Rate [Left Radial] 90 Respiratory Rate 18 Blood Pressure [Right Arm] 109/62 L Blood Pressure Mean [Right Arm] 77 Blood Pressure Source [Right Arm] Automatic Cuff Blood Pressure Position [Right Arm] Sitting 02 Sat by Pulse Oximetry 98 Oxygen Delivery Method Room Air - Lab Data Lab Results 10/09/18 10:45: Stool Occult Blood Positive A 10/09/18 11:40: WBC 16.5 H, RBC 3.26 L, Hgb 9.9 L, Hct 31.3 L, MCV 96.0, MCH 30.5, MCHC 31.8, RDW 14.6, Plt Count 260, MPV 9.0, Neut % (Auto) 84.5 H, Lymph % (Auto) 6.1 L, [place] % (Auto) 7.8, Eos % (Auto) 1.6, Baso % (Auto) 0.2, Neut # (Auto) 14.0 H, Lymph # (Auto) 1.0, [place] # (Auto) 1.3 H, Eos # (Auto) 0.3, Baso # (Auto) 0.0, Total Counted 100, Neutrophils % (Manual) 92 H, Lymphocytes % (Manual) 4 L, Monocytes % (Manual) 4, Platelet Estimate Normal, RBC Morphology Normal 10/09/18 11:40: Sodium 145, Potassium 3.6, Chloride 104, Carbon Dioxide 34 H, Anion Gap 10.6, BUN 73 H, Creatinine 2.52 H, Estimated Creat Clear 21, Estimated GFR 18 L*, Est GFR ( Amer) 22 L, Glucose 168 H, Calcium 10.4 H, Total Bilirubin 0.3, AST 17, ALT 17, Alkaline Phosphatase 73, Total Protein 5.4 L, Albumin 1.7 L, Globulin 3.7 H, Albumin/Globulin Ratio 0.5 L 10/09/18 11:40: Ammonia 20 10/09/18 11:40: Blood Type B Positive, Antibody Screen Negative 10/09/18 12:20: PT 12.0 H, INR 1.17 H, APTT 28.0 Result diagrams: 10/09/18 11:40 10/09/18 11:40 Orders (Tests/Meds): ED MEDICATIONS Generic Name Dose Route Start Last Admin Trade Name Freq PRN Reason Stop Dose Admin Pantoprazole Sodium 80 mg/ 100 mls @ 10 mls/hr 10/09/18 10:45 Sodium Chloride IV 10/12/18 10:44 .Q10H BRENNA Discontinued Medications Generic Name Dose Route Start Last Admin Trade Name Freq PRN Reason Stop Dose Admin Famotidine 20 mg 10/09/18 10:31 10/09/18 11:59 Pepcid 20mg/2ml Vial IV 10/09/18 10:32 20 mg ONCE ONE Administration Sodium Chloride 1,000 mls @ 999 mls/hr 10/09/18 10:45 10/09/18 11:59 Sod Chlor 0.9% 1000ml Bag IV 10/09/18 11:45 999 mls/hr .Q1H1M BRENNA Administration Pantoprazole Sodium 80 mg/ 100 mls @ 100 mls/hr 10/09/18 10:31 10/09/18 12:00 Sodium Chloride IV 10/09/18 11:30 100 mls/hr ONCE ONE Administration ORDERS Category Date Time Status Occult Blood,Stool Stat Lab 10/09/18 10:45 Ordered Medical Decision Narrative: The patient remained hemodynamically stable her white count was elevated to 16 chest x-ray positive for left lower lobe infiltrates does not responding to her Fortaz 2 g IV every 12. Her hemoglobin was down to 9.9 with a positive Hemoccult. I called and discussed with Dr. Nix agreed to admit the patient for observation admit for H&H monitoring and adding Pseudomonas coverage. GI Bleed HPI - General Chief complaint: GI Bleed Stated complaint: vomiting Time Seen by Provider: 10/09/18 10:10 Mode of Arrival: Ambulatory Limitations: No Limitations Description of Symptoms (Recalled from ER Triage Doc. by RN): Per EMS pt [facility]ile [facility] at the [facility] and had coffee ground emesis. - History of Present Illness HPI Narrative: 83 years old white female with recent history of upper GI bleed and recent EGD by Dr. Dodson that was positive for gastritis. The patient received 2 days of PRBCs was [facility] to the [facility] on PPI, iron supplement, daily aspirin and Lovenox 40 mg subcu that was given this morning at 8:40 AM. Today at 9:30 AM, the patient vomited coffee-ground emesis witnessed by the [facility] staff who contacted the EMS and upon arrival the patient had a systolic blood pressure of 113mmhg SBP, heart rate of 90/min, and saturation of 96% RA. The patient is alert oriented x3 denies vomiting this morning or seeing blood, but she admits for generalized weakness. Contacted the [facility] who confirmed that she had coffee-ground emesis this morning. MD complaint: coffee ground emesis Onset (ago): hour(s) (one hour ago.) Consistency: now resolved Severity: mild Relieving factors: none Exacerbating factors: none Context: history of GI bleed Associated symptoms: weakness - Related Data Home Medications Medication Instructions Recorded Confirmed acetaminophen 325 mg tablet 650 mg PO Q4HP PRN 12/14/17 09/23/18 atorvastatin 20 mg tablet 20 mg PO HS 30 Days #30 12/14/17 09/23/18 cholecalciferol (vitamin D3) 2,000 2,000 unit PO DAILY cap 12/14/17 09/23/18 unit capsule doxazosin 2 mg tablet 2 mg PO HS 30 Days #30 12/14/17 09/23/18 lansoprazole 15 mg capsule,delayed 15 mg PO DAILY 30 Days #30 12/14/17 09/23/18 release losartan 100 mg tablet 100 mg PO DAILY 30 Days #30 12/14/17 09/23/18 memantine 28 mg capsule 28 mg PO DAILY 30 Days #30 12/14/17 09/23/18 sprinkle,extended release 24hr nadolol 40 mg tablet 40 mg PO DAILY 30 Days #30 12/14/17 09/23/18 polyethylene glycol 3350 17 17 gm PO DAILY 12/14/17 09/23/18 gram/dose oral powder potassium chloride ER 10 mEq 10 meq PO DAILY 14 Days #14 12/14/17 09/23/18 tablet,extended release Ferrous Sulfate [Ferrous Sulfate 325 mg PO DAILY 09/17/18 09/23/18 325mg Tablet] Aspirin [Aspirin 325mg Tab] 325 mg PO HS 09/18/18 09/23/18 Melatonin/Pyridoxine HCl (B6) 1 each PO HSP PRN 09/18/18 09/23/18 [Melatonin 1 mg Tablet] Furosemide [Lasix 40mg tablet] 40 mg PO BIDL 09/23/18 09/23/18 Ipratropium/Albuterol Sulfate 3 ml IH TIDRT 09/23/18 09/23/18 [Duoneb 3mL neb] Previous Rx's Medication Instructions Recorded Carvedilol [Coreg 12.5mg 12.5 mg PO BID #60 tab 10/05/18 Tablet] Enoxaparin Sodium [Lovenox 40 mg SQ DAILY #30 syringe 10/05/18 40mg/0.4mL syringe] Nystatin [Nystatin Susp 500,000 500,000 unit PO DAILY 30 Days #30 10/05/18 Units/5mL Udc] udc Potassium Chloride [Klor-con 20 20 meq PO BID #60 tab 10/05/18 mEq tablet] cefTAZidime [Fortaz 2GM Vial] 2 gm IV Q12H 7 Days vial 10/05/18 guaiFENesin [Mucinex 600mg tablet] 600 mg PO BID #60 tab.er.12h 10/05/18 metOLazone [metOLazone 2.5mg 2.5 mg PO DAILY #30 tab 10/05/18 Tablet] predniSONE [Prednisone 20mg 20 mg PO DAILY #30 tab 10/05/18 Tab] Allergies Allergy/AdvReac Type Severity Reaction Status Date / Time Penicillins [PENICILLINS] Allergy Mild Verified 09/17/18 17:15 [facility] History - Hepatitis A Screen Drug use history?: No High risk sexual behaviors?: No History of sexually transmitted infection?: No Currently employed?: No Childcare worker?: No Do you have indoor plumbing?: Yes Do you have electricity?: Yes Attestation statement:: This patient has been screened for Hepatitis A risk factors. I have reviewed the patient's past medical history: Yes (ii reviewed her NH MAR, DC summary10/05/18. ) Medical History: Reports:: Arrhythmia, Cancer (lumpectomy), Congestive Heart Failure, Deep Vein Thrombosis, Dementia, Gastroesophageal Reflux Disease(GERD), Hyperlipidemia, Hypertension, Internal Pacemaker, Peripheral Vascular Disease, Renal Insufficiency, Urinary Tract Infection Denies:: Diabetes Mellitus Type 1, Diabetes Mellitus Type 2, MRSA, Seizures Other Medical History: Reports: Anemia, Arthritis, Cataracts Comment: DVT bilateral legs; Goiter Laterality Cases: Right: Lumpectomy, Bilateral: Other Other Surgeries: Yes: Cholecystectomy, Colonoscopy, Pacemaker, Other (left breast lumpectomy) Amputation: No Fractures: No - Social History Smoking Status: Never smoker Alcohol Intake: never Alcohol Intake Frequency:: other Substance Use Type: denies use Occupational Status: retired Housing: assisted living facility Household Members: caregiver, other - Psychiatric History Expresses thoughts of harming self/others: None Suicide Plan Description: No Plan Family Hx:: Hyperlipidemia, Hypertension ROS Obtained: Yes All systems reviewed & no additional complaints Physical Exam - General General appearance: alert, in no apparent distress - Head Head exam: atraumatic, normocephalic, normal inspection - Eye Eye exam: Present: normal appearance, PERRL, EOMI. Absent: scleral icterus, nystagmus - ENT ENT exam: Present: normal exam, normal oropharynx, mucous membranes moist, TM's normal bilaterally, normal external ear exam - Neck Neck exam: Present: normal inspection, full ROM, trachea midline. Absent: tenderness, meningismus, lymphadenopathy - Chest Chest inspection: Present: normal inspection, symmetric chest wall rise. Absent: tenderness - Respiratory Respiratory exam: Present: normal lung sounds bilaterally. Absent: respiratory distress - Cardiovascular Cardiovascular exam: Present: regular rate, normal rhythm, normal heart sounds. Absent: JVD - Abdominal Exam Abdominal exam: Present: soft, normal bowel sounds. Absent: distention, tenderness, guarding, rebound, rigidity - Rectal Exam Rectal exam: Present: normal rectal tone, heme (+) stool, other (External hemorrhoids, with black tarry stool and strong rectal tone, no masses.) - External exam: Present: normal external exam - Extremities Exam Extremities exam: Present: normal inspection, full ROM, normal capillary refill. Absent: calf tenderness - Back Exam Back exam: Present: normal inspection. Absent: tenderness, CVA tenderness (R), CVA tenderness (L) - Neurological Exam Neurological exam: Present: alert, oriented X3, CN II-XII intact, motor sensory deficit, reflexes normal - Psychiatric Psychiatric exam: Present: normal affect, normal mood - Skin Skin exam: Present: warm, dry, intact, normal color - Lymphatic Lymphatic Findings: no adenopathy
[2018-10-09 11:46] LABS: Basophils % 0.2 % (0.1-2.0); Eosinophils # 0.3 K/mm3 (0.0-0.4); Eosinophils % 1.6 % (0.1-12.0); Hematocrit 31.3 % (37.0-47.0); Hemoglobin 9.9 g/dL (12.2-16.2); Lymphocytes % 6.1 % (10-50); Mean Corpuscular HGB Conc 31.8 g/dL (31.8-35.4); Mean Corpuscular Hemoglobin 30.5 pg (27.0-31.2); Monocytes # 1.3 K/mm3 (0.1-1.0); Monocytes % 7.8 % (1.7-9.3); Neutrophils % 84.5 % (37.0-80.0); Platelet Count 260 K/mm3 (142-424); Red Blood Count 3.26 M/mm3 (4.20-5.40); Red Cell Distribution Width 14.6 % (11.5-17.5); White Blood Count 16.5 K/mm3 (4.8-10.8)
[2018-10-09 11:58] LABS: Albumin Level 1.7 gm/dL (3.4-5.0); Albumin/Globulin Ratio 0.5 (1.1-1.8); Anion Gap 10.6 mEq/L (5-15); Bilirubin,Total 0.3 mg/dL (0.2-1.0); Calcium 10.4 mg/dL (8.5-10.1); Globulin 3.7 gm/dl (1.3-3.2); Potassium 3.6 mmoL/L (3.5-5.1); Total Protein,Serum 5.4 gm/dL (6.4-8.2)
[2018-10-09 12:10] LABS: Lymphocytes % 4 % (10-50); Monocytes % 4 % (2-9); Neutrophils % 92 % (42-76); RBC Morphology Normal; Total Cells Counted 100
[2018-10-09 12:35] LABS: INR 1.17 (0.9-1.1)
[2018-10-09 16:20] LABS: Hematocrit 31.2 % (37.0-47.0); Hemoglobin 9.8 g/dL (12.2-16.2)
--- NOTE | 2018-10-09 17:20 | History & Physical Report ---
*Admission Date: 10/09/18 *Chief complaint: vomited blood *History of present illness: Ms. Bautista is an 83-year-old female who is a resident of [place] with a history of DVT, pneumonia, breast cancer with lumpectomy, acute anemia requiring transfusion, hypertension, GERD, dementia, chronic renal failure, and who has had 2 recent hospitalizations at [facility] for pneumonia, DVT, acute anemia from GI blood loss and CHF. This a.m. at [facility] she vomited coffee-ground material and then did vomit blood. Thus she was transported to [facility] emergency room for further evaluation and treatment. She was recently discharged from the hospital on a PPI, iron supplement, daily aspirin, and Lovenox subcu. EGD per Dr. Reece during last hospitalization revealed a large hiatal hernia and gastritis. With evaluation in the emergency room patient was found to be stable and had no further vomiting. Patient was then admitted for observation and monitoring of H&H. She was also noted to have a continued cough. She was being diuresed for CHF At time of this exam patient denies abdominal and chest pain and shortness of breath. She is not nauseated. [facility] History Medical History: Reports:: Arrhythmia, Cancer (LEFT BREAST CA), Congestive Heart Failure, Deep Vein Thrombosis, Dementia, Gastroesophageal Reflux Disease(GERD), Hiatal Hernia, Hyperlipidemia, Hypertension, Internal Pacemaker, Peripheral Vascular Disease, Renal Insufficiency, Urinary Tract Infection Denies:: Diabetes Mellitus Type 1, Diabetes Mellitus Type 2, MRSA, Seizures *Have you ever received a pneumonia vaccine?: Yes *Have you received a flu vaccine this season?: Yes Other Medical History: Reports: Anemia, Arthritis, Cataracts, Hypothyroidism Comment:: Goiter Laterality Cases: Right: Lumpectomy, Bilateral: Other Other Surgeries: Yes: Cholecystectomy, Colonoscopy, Pacemaker, Other (left breast lumpectomy) Amputation: No Fractures: No - *Social History Smoking Status: Never smoker Alcohol Intake: never Alcohol Intake Frequency:: other Substance Use Type: denies use *Occupational Status:: retired Housing: [employer] Household Members: caregiver, other *Travel in the last 8 weeks: None - Psychiatric History Expresses thoughts of harming self/others: None Suicide Plan Description: No Plan Family Hx:: Hyperlipidemia, Hypertension Review of Systems - Constitutional Denies fever(s), Denies headache(s) - ENT Denies ear pain, Denies sore throat - *Cardiovascular Reports shortness of breath, Reports leg swelling, Denies chest pain - *Respiratory Reports chest congestion, Reports cough, Reports shortness of breath - *Gastrointestinal Reports coffee ground vomit, Reports vomiting blood, Reports black, tarry stools, Reports vomiting, Denies abdominal pain, Denies nausea - *Genitourinary Reports urinary incontinence - *Musculoskeletal Reports muscle weakness Comments: Has not walked in several weeks - *Neurologic Reports confusion, Denies dizziness Meds Home Medications Medication Instructions Recorded Confirmed Type acetaminophen 325 mg tablet 650 mg PO Q4HP PRN 12/14/17 10/09/18 History atorvastatin 20 mg tablet 20 mg PO HS 30 Days #30 12/14/17 10/09/18 History cholecalciferol (vitamin D3) 2,000 2,000 unit PO DAILY cap 12/14/17 10/09/18 History unit capsule doxazosin 2 mg tablet 2 mg PO HS 30 Days #30 12/14/17 10/09/18 History lansoprazole 15 mg capsule,delayed 15 mg PO DAILY 30 Days #30 12/14/17 10/09/18 History release losartan 100 mg tablet 100 mg PO DAILY 30 Days #30 12/14/17 10/09/18 History memantine 28 mg capsule 28 mg PO DAILY 30 Days #30 12/14/17 10/09/18 History sprinkle,extended release 24hr nadolol 40 mg tablet 40 mg PO DAILY 30 Days #30 12/14/17 10/09/18 History polyethylene glycol 3350 17 17 gm PO DAILY 12/14/17 10/09/18 History gram/dose oral powder potassium chloride ER 10 mEq 10 meq PO DAILY 14 Days #14 12/14/17 10/09/18 History tablet,extended release Ferrous Sulfate [Ferrous Sulfate 325 mg PO DAILY 09/17/18 10/09/18 History 325mg Tablet] Aspirin [Aspirin 325mg Tab] 325 mg PO HS 09/18/18 10/09/18 History Melatonin/Pyridoxine HCl (B6) 1 each PO HSP PRN 09/18/18 10/09/18 History [Melatonin 1 mg Tablet] Furosemide [Lasix 40mg tablet] 40 mg PO BIDL 09/23/18 10/09/18 History Ipratropium/Albuterol Sulfate 3 ml IH TIDRT 09/23/18 10/09/18 History [Duoneb 3mL neb] Carvedilol [Coreg 12.5mg 12.5 mg PO BID 10/09/18 10/09/18 History Tablet] Enoxaparin Sodium [Lovenox 40 mg SQ DAILY 10/09/18 10/09/18 History 40mg/0.4mL syringe] Hydrocodone/Acetaminophen [[place] 1 each PO TID 10/09/18 10/09/18 History 5-325 Tablet] Nystatin [Nystatin Susp 500,000 500,000 unit PO DAILY 10/09/18 10/09/18 History Units/5mL Udc] Potassium Chloride [Klor-con 20 20 meq PO BID 10/09/18 10/09/18 History mEq tablet] cefTAZidime [Fortaz 2GM Vial] 2 gm IV Q12H 10/09/18 10/09/18 History guaiFENesin [Mucinex 600mg tablet] 600 mg PO BID 10/09/18 10/09/18 History metOLazone [metOLazone 2.5mg 2.5 mg PO DAILY 10/09/18 10/09/18 History Tablet] predniSONE [Prednisone 20mg 20 mg PO DAILY 10/09/18 10/09/18 History Tab] Allergies Allergy/AdvReac Type Severity Reaction Status Date / Time Penicillins [PENICILLINS] Allergy Mild Verified 09/17/18 17:15 Exam Vital signs and Labs for Last 24 Hours: Temp Pulse Resp BP Pulse Ox 97.6 F 83 18 113/59 L 96 10/09/18 15:51 10/09/18 15:51 10/09/18 15:51 10/09/18 15:51 10/09/18 15:51 Laboratory Results - last 24 hr 10/09/18 10:45: Stool Occult Blood Positive A 10/09/18 11:40: WBC 16.5 H, RBC 3.26 L, Hgb 9.9 L, Hct 31.3 L, MCV 96.0, MCH 30.5, MCHC 31.8, RDW 14.6, Plt Count 260, MPV 9.0, Neut % (Auto) 84.5 H, Lymph % (Auto) 6.1 L, [place] % (Auto) 7.8, Eos % (Auto) 1.6, Baso % (Auto) 0.2, Neut # (Auto) 14.0 H, Lymph # (Auto) 1.0, [place] # (Auto) 1.3 H, Eos # (Auto) 0.3, Baso # (Auto) 0.0, Total Counted 100, Neutrophils % (Manual) 92 H, Lymphocytes % (Manual) 4 L, Monocytes % (Manual) 4, Platelet Estimate Normal, RBC Morphology Normal 10/09/18 11:40: Sodium 145, Potassium 3.6, Chloride 104, Carbon Dioxide 34 H, Anion Gap 10.6, BUN 73 H, Creatinine 2.52 H, Estimated Creat Clear 21, Estimated GFR 18 L*, Est GFR ( Amer) 22 L, Glucose 168 H, Calcium 10.4 H, Total Bilirubin 0.3, AST 17, ALT 17, Alkaline Phosphatase 73, Total Protein 5.4 L, Albumin 1.7 L, Globulin 3.7 H, Albumin/Globulin Ratio 0.5 L 10/09/18 11:40: Ammonia 20 10/09/18 11:40: Blood Type B Positive, Antibody Screen Negative, Crossmatch (AHG) See Detail 10/09/18 12:20: PT 12.0 H, INR 1.17 H, APTT 28.0 10/09/18 16:00: Hgb 9.8 L, Hct 31.2 L 10/09/18 16:00: Lactate 1.3 I & O for Last 24 hours: Intake & Output 10/07/18 10/08/18 10/09/18 10/10/18 11:59 11:59 11:59 11:59 Weight 180 lb 195 lb 6 oz Radiology Reports for the Last 24 Hours: 10/09/2017 chest and abdomen x-ray IMPRESSION: 1. Bibasilar atelectasis with some increased density in the left lung base which may be due to worsening atelectasis or infiltrate. 2. Staghorn calculus of the left kidney. 3. Other nonacute findings as described above - Constitutional no acute distress Comments: Answers all questions appropriately. Speech is clear. - *Routine HEENT Exam Head: Present: normocephalic, atraumatic Eye: Present: PERRL. Absent: conjunctival icterus, scleral injection ENT: Present: mucous membranes moist, oropharynx clear - *Routine Neck Exam Absent: carotid bruit, lymphadenopathy Comments: Left goiter - *Routine Respiratory Exam Comments: Bilateral coarse crackles not clearing with cough - *Routine Cardiovascular Exam Present: RRR - *Routine Abdominal Exam Present: soft, normoactive bowel sounds. Absent: tenderness, distended, rebound, guarding - *Routine Extremities Exam Absent: edema, calf tenderness Comments: Left leg is a little larger than the right. Legs are wrinkled. - *Routine Neurological Exam Present: alert She knows she is back in the hospital. Poor recall Assessment and Plan (1) Upper GI bleeding Current visit: Yes Status: Acute Category: Medical Code(s): K92.2 - Gastrointestinal hemorrhage, unspecified (2) Weakness Current visit: Yes Status: Chronic Category: Medical Code(s): R53.1 - Weakness (3) Acute deep vein thrombosis (DVT) of left lower extremity Current visit: No Status: Acute Category: Medical Code(s): I82.402 - Acute embolism and thrombosis of unspecified deep veins of left lower extremity (4) Congestive heart failure Current visit: No Status: Chronic Category: Medical Code(s): I50.9 - Heart failure, unspecified (5) Gastritis Current visit: No Status: Chronic Category: Medical Code(s): K29.70 - Gastritis, unspecified, without bleeding (6) Hiatal hernia Current visit: No Status: Chronic Category: Medical Code(s): K44.9 - Diaphragmatic hernia without obstruction or gangrene (7) Hypokalemia Current visit: No Status: Chronic Category: Medical Code(s): E87.6 - Hypokalemia (8) Respiratory tract congestion with cough Current visit: No Status: Chronic Category: Medical Code(s): R05 - Cough (9) Chronic kidney failure Current visit: No Status: Chronic Category: Medical Code(s): N18.9 - Chronic kidney disease, unspecified (10) Goiter Current visit: No Status: Chronic Category: Medical Code(s): E04.9 - Nontoxic goiter, unspecified (11) History of breast cancer Current visit: No Status: Chronic Category: Medical Code(s): Z85.3 - Personal history of malignant neoplasm of breast - Assessment and plan all Dx Assessment and Plan for all problems:: Laboratory Tests 10/09/18 10/09/18 11:40 16:00 WBC 16.5 H Hgb 9.9 L 9.8 L Hct 31.3 L 31.2 L MCV 96.0 MCH 30.5 RDW 14.6 Plt Count 260 Neut % (Auto) 84.5 H Lymph % (Auto) 6.1 L [place] % (Auto) 7.8 Neut # (Auto) 14.0 H [place] # (Auto) 1.3 H Laboratory Tests 10/09/18 11:40 Sodium 145 Potassium 3.6 Chloride 104 Carbon Dioxide 34 H Anion Gap 10.6 BUN 73 H Creatinine 2.52 H H&H is stable as noted in above graft. We will continue to monitor. BUN and creatinine are slightly more elevated and will increase IV fluids to 50 mL/h. We will discontinue her aspirin. Continue with a PPI. White blood cell count is felt to be elevated due to steroids. She has been started on 2 IV antibiotics as well as duo nebs
[2018-10-10 07:20] LABS: Basophils % 0.2 % (0.1-2.0); Eosinophils # 0.2 K/mm3 (0.0-0.4); Eosinophils % 1.5 % (0.1-12.0); Hemoglobin 9.5 g/dL (12.2-16.2); Lymphocytes # 1.2 K/mm3 (0.7-4.5); Mean Corpuscular HGB Conc 31.6 g/dL (31.8-35.4); Mean Corpuscular Hemoglobin 30.2 pg (27.0-31.2); Mean Corpuscular Volume 95.7 fl (81-99); Mean Platelet Volume 9.2 fl (7.4-10.4); Monocytes % 8.9 % (1.7-9.3); Neutrophils # 8.7 K/mm3 (1.8-7.8); Neutrophils % 78.5 % (37.0-80.0); Platelet Count 239 K/mm3 (142-424); Red Blood Count 3.14 M/mm3 (4.20-5.40); Red Cell Distribution Width 14.7 % (11.5-17.5)
[2018-10-10 07:24] LABS: Anion Gap 9.8 mEq/L (5-15); Calcium 10.6 mg/dL (8.5-10.1)
--- NOTE | 2018-10-10 07:24 | Pharmacy Consult Notes ---
[facility] Pharmacy VTE Monitoring - Patient Demographics Admission date: 10/09/18 Report Date: 10/10/18 Time: 07:24 Allergies/Adverse Reactions: Patient Allergies Penicillins [PENICILLINS] Allergy (Mild, Verified 09/17/18 17:15) Height: 1.65 m Weight: 89.443 kg Patient Problems: Current Active Problems Upper GI bleeding (Acute) Anticoagulant adverse reaction (Acute) LLL pneumonia (Acute) Weakness (Chronic) - VTE Risk Labs: VTE Related Lab Results Hgb 9.5 g/dL (12.2-16.2) L 10/10/18 06:40 Hct 30.0 % (37.0-47.0) L 10/10/18 06:40 Plt Count 239 K/mm3 (142-424) 10/10/18 06:40 PT 12.0 seconds (9.4-11.8) H 10/09/18 12:20 INR 1.17 (0.9-1.1) H 10/09/18 12:20 APTT 28.0 seconds (23.6-34.0) 10/09/18 12:20 BUN 73 mg/dL (7-18) H 10/09/18 11:40 Creatinine 2.52 mg/dL (0.55-1.02) H 10/09/18 11:40 Estimated Creat Clear 21 mL/min (50-200) 10/09/18 11:40 Was VTE Risk Assessment Performed: Yes VTE Risk Level: Moderate Risk Clinical Trial Participant: No - Prophylaxis VTE Prophylaxis Ordered?: Yes Types of VTE Prophylaxis: TEDS Knee High Location of Applied Device: Not Applicable
[2018-10-10 07:35] LABS: Potassium 2.8 mmoL/L (3.5-5.1)
--- NOTE | 2018-10-10 08:15 | Progress Note ---
Internal Medicine - PN: Subj *Date: 10/10/18 *Time: 08:12 Interval history: Patient states she is feeling better this morning. Her son says she is more coherent. She is tolerating a diet and denies any pain. She has had no further coffee-ground emesis. Exam Vital signs and Labs for Last 24 Hours: Temp Pulse Resp BP Pulse Ox 99.0 F 90 15 99/51 L 85 L 10/10/18 04:00 10/10/18 05:48 10/10/18 04:00 10/10/18 04:00 10/10/18 05:48 Laboratory Results - last 24 hr 10/09/18 10:45: Stool Occult Blood Positive A 10/09/18 11:40: WBC 16.5 H, RBC 3.26 L, Hgb 9.9 L, Hct 31.3 L, MCV 96.0, MCH 30.5, MCHC 31.8, RDW 14.6, Plt Count 260, MPV 9.0, Neut % (Auto) 84.5 H, Lymph % (Auto) 6.1 L, [place] % (Auto) 7.8, Eos % (Auto) 1.6, Baso % (Auto) 0.2, Neut # (Auto) 14.0 H, Lymph # (Auto) 1.0, [place] # (Auto) 1.3 H, Eos # (Auto) 0.3, Baso # (Auto) 0.0, Total Counted 100, Neutrophils % (Manual) 92 H, Lymphocytes % (Manual) 4 L, Monocytes % (Manual) 4, Platelet Estimate Normal, RBC Morphology Normal 10/09/18 11:40: Sodium 145, Potassium 3.6, Chloride 104, Carbon Dioxide 34 H, Anion Gap 10.6, BUN 73 H, Creatinine 2.52 H, Estimated Creat Clear 21, Estimated GFR 18 L*, Est GFR ( Amer) 22 L, Glucose 168 H, Calcium 10.4 H, Total Bilirubin 0.3, AST 17, ALT 17, Alkaline Phosphatase 73, Total Protein 5.4 L, Albumin 1.7 L, Globulin 3.7 H, Albumin/Globulin Ratio 0.5 L 10/09/18 11:40: Ammonia 20 10/09/18 11:40: Blood Type B Positive, Antibody Screen Negative, Crossmatch (G) See Detail 10/09/18 12:20: PT 12.0 H, INR 1.17 H, APTT 28.0 10/09/18 16:00: Hgb 9.8 L, Hct 31.2 L 10/09/18 16:00: Lactate 1.3 10/10/18 06:40: WBC 11.0 H D, RBC 3.14 L, Hgb 9.5 L, Hct 30.0 L, MCV 95.7, MCH 30.2, MCHC 31.6 L, RDW 14.7, Plt Count 239, MPV 9.2, Neut % (Auto) 78.5, Lymph % (Auto) 11.0, [place] % (Auto) 8.9, Eos % (Auto) 1.5, Baso % (Auto) 0.2, Neut # (Auto) 8.7 H, Lymph # (Auto) 1.2, [place] # (Auto) 1.0, Eos # (Auto) 0.2, Baso # (Auto) 0.0 10/10/18 06:40: Sodium 145, Potassium 2.8 L* D, Chloride 106, Carbon Dioxide 32, Anion Gap 9.8, BUN 65 H, Creatinine 2.39 H, Estimated Creat Clear 24, Estimated GFR 19 L*, Est GFR ( Amer) 23 L, Glucose 113 H D, Calcium 10.6 H I & O for Last 24 hours: Intake & Output 10/07/18 10/08/18 10/09/18 10/10/18 11:59 11:59 11:59 11:59 Intake Total 1110 / 1110 Output Total 300 / 300 Balance 810 / 810 Weight 180 lb 197 lb 3 oz - Constitutional no acute distress - *Routine Respiratory Exam Present: crackles (bilateral with congested cough) - *Routine Cardiovascular Exam Present: RRR - *Routine Abdominal Exam Present: soft, normoactive bowel sounds. Absent: tenderness - *Routine Extremities Exam Present: edema (trace bilateral LE edema) Assessment and Plan (1) Upper GI bleeding Current visit: Yes Status: Acute Category: Medical Code(s): K92.2 - Gastrointestinal hemorrhage, unspecified (2) Weakness Current visit: Yes Status: Chronic Category: Medical Code(s): R53.1 - Weakness (3) Acute deep vein thrombosis (DVT) of left lower extremity Current visit: No Status: Acute Category: Medical Code(s): I82.402 - Acute embolism and thrombosis of unspecified deep veins of left lower extremity (4) Congestive heart failure Current visit: No Status: Chronic Category: Medical Code(s): I50.9 - Heart failure, unspecified (5) Gastritis Current visit: No Status: Chronic Category: Medical Code(s): K29.70 - Gastritis, unspecified, without bleeding (6) Hiatal hernia Current visit: No Status: Chronic Category: Medical Code(s): K44.9 - Diaphragmatic hernia without obstruction or gangrene (7) Hypokalemia Current visit: No Status: Chronic Category: Medical Code(s): E87.6 - Hypokalemia (8) Respiratory tract congestion with cough Current visit: No Status: Chronic Category: Medical Code(s): R05 - Cough (9) Chronic kidney failure Current visit: No Status: Chronic Category: Medical Code(s): N18.9 - Chronic kidney disease, unspecified (10) Goiter Current visit: No Status: Chronic Category: Medical Code(s): E04.9 - Nontoxic goiter, unspecified (11) History of breast cancer Current visit: No Status: Chronic Category: Medical Code(s): Z85.3 - Personal history of malignant neoplasm of breast - Assessment and plan all Dx Assessment and Plan for all problems:: H&H is stable but potassium is low. During previous admission, patient required 2 rounds of 20 mEq of potassium. Will order again this morning. Possibly able to be discharged home later today after potassium supplementation.
--- NOTE | 2018-10-10 08:51 | Discharge Summary ---
General - General Admission date:: 10/09/18 Discharge date: 10/10/18 HPI HPI: Ms. Bautista is an 83-year-old female who is a resident of [place] with a history of DVT, pneumonia, breast cancer with lumpectomy, acute anemia requiring transfusion, hypertension, GERD, dementia, chronic renal failure, and who has had 2 recent hospitalizations at [facility] for pneumonia, DVT, acute anemia from GI blood loss and CHF. This a.m. at [place] she vomited coffee-ground material and then did vomit blood. Thus she was transported to [facility] emergency room for further evaluation and treatment. She was recently discharged from the hospital on a PPI, iron supplement, daily aspirin, and Lovenox subcu. EGD per Dr. Reece during last hospitalization revealed a large hiatal hernia and gastritis. With evaluation in the emergency room patient was found to be stable and had no further vomiting. Patient was then admitted for observation and monitoring of H&H. She was also noted to have a continued cough. She was being diuresed for CHF At time of this exam patient denies abdominal and chest pain and shortness of breath. She is not nauseated. Hospital Course Hospital Course: The patient's chest x-ray showed bibasilar atelectasis with some increased density in the left lung base. Her H&H remained stable but her BUN and creatinine were slightly more elevated, therefore she was given IV fluids at a low rate of 50 mL an hour. Her aspirin was discontinued and her PPI was continued. Her elevated white blood cell count was felt to be due to steroids. She was started on 2 IV antibiotics as well as duo nebs. The patient's H&H remained stable and her son felt she was much more coherent. She was able to tolerate a diet and had no further episodes of coffee-ground emesis. Her potassium was low, therefore she was given 2 runs of of 20 mEq of potassium. She was stable to be discharged back to the intermediate and will need to remain off of her aspirin and on a PPI and Carafate. She will need a CBC and BMP done in a few days to monitor her H&H as well as her potassium. Objective Vital signs: Temp Pulse Resp BP Pulse Ox 98.2 F 78 17 129/69 93 L 10/10/18 08:00 10/10/18 08:00 10/10/18 08:00 10/10/18 08:00 10/10/18 08:00 Narrative: - Constitutional no acute distress Comments: Answers all questions appropriately. Speech is clear. - *Routine HEENT Exam Head: Present: normocephalic, atraumatic Eye: Present: PERRL. Absent: conjunctival icterus, scleral injection ENT: Present: mucous membranes moist, oropharynx clear - *Routine Neck Exam Absent: carotid bruit, lymphadenopathy Comments: Left goiter - *Routine Respiratory Exam Comments: Bilateral coarse crackles not clearing with cough - *Routine Cardiovascular Exam Present: RRR - *Routine Abdominal Exam Present: soft, normoactive bowel sounds. Absent: tenderness, distended, rebound, guarding - *Routine Extremities Exam Absent: edema, calf tenderness Comments: Left leg is a little larger than the right. Legs are wrinkled. - *Routine Neurological Exam Present: alert She knows she is back in the hospital. Poor recall Results Labs on day of discharge: Labs from last 24 hours 10/10/18 10/10/18 10/09/18 06:40 06:40 16:00 WBC 11.0 H D RBC 3.14 L Hgb 9.5 L Hct 30.0 L MCV 95.7 MCH 30.2 MCHC 31.6 L RDW 14.7 Plt Count 239 MPV 9.2 Neut % (Auto) 78.5 Lymph % (Auto) 11.0 [place] % (Auto) 8.9 Eos % (Auto) 1.5 Baso % (Auto) 0.2 Neut # (Auto) 8.7 H Lymph # (Auto) 1.2 [place] # (Auto) 1.0 Eos # (Auto) 0.2 Baso # (Auto) 0.0 Total Counted Neutrophils % (Manual) Lymphocytes % (Manual) Monocytes % (Manual) Platelet Estimate RBC Morphology PT INR APTT Sodium 145 Potassium 2.8 L* D Chloride 106 Carbon Dioxide 32 Anion Gap 9.8 BUN 65 H Creatinine 2.39 H Estimated Creat Clear 24 Estimated GFR 19 L* Est GFR ( Amer) 23 L Glucose 113 H D Lactate 1.3 Calcium 10.6 H Total Bilirubin AST ALT Alkaline Phosphatase Ammonia Total Protein Albumin Globulin Albumin/Globulin Ratio Stool Occult Blood Blood Type Antibody Screen Crossmatch ([facility]) 10/09/18 10/09/18 10/09/18 16:00 12:20 11:40 WBC RBC Hgb 9.8 L Hct 31.2 L MCV MCH MCHC RDW Plt Count MPV Neut % (Auto) Lymph % (Auto) [place] % (Auto) Eos % (Auto) Baso % (Auto) Neut # (Auto) Lymph # (Auto) [place] # (Auto) Eos # (Auto) Baso # (Auto) Total Counted Neutrophils % (Manual) Lymphocytes % (Manual) Monocytes % (Manual) Platelet Estimate RBC Morphology PT 12.0 H INR 1.17 H APTT 28.0 Sodium Potassium Chloride Carbon Dioxide Anion Gap BUN Creatinine Estimated Creat Clear Estimated GFR Est GFR ( Amer) Glucose Lactate Calcium Total Bilirubin AST ALT Alkaline Phosphatase Ammonia Total Protein Albumin Globulin Albumin/Globulin Ratio Stool Occult Blood Blood Type B Positive Antibody Screen Negative Crossmatch ([facility]) See Detail 10/09/18 10/09/18 10/09/18 11:40 11:40 11:40 WBC 16.5 H RBC 3.26 L Hgb 9.9 L Hct 31.3 L MCV 96.0 MCH 30.5 MCHC 31.8 RDW 14.6 Plt Count 260 MPV 9.0 Neut % (Auto) 84.5 H Lymph % (Auto) 6.1 L [place] % (Auto) 7.8 Eos % (Auto) 1.6 Baso % (Auto) 0.2 Neut # (Auto) 14.0 H Lymph # (Auto) 1.0 [place] # (Auto) 1.3 H Eos # (Auto) 0.3 Baso # (Auto) 0.0 Total Counted 100 Neutrophils % (Manual) 92 H Lymphocytes % (Manual) 4 L Monocytes % (Manual) 4 Platelet Estimate Normal RBC Morphology Normal PT INR APTT Sodium 145 Potassium 3.6 Chloride 104 Carbon Dioxide 34 H Anion Gap 10.6 BUN 73 H Creatinine 2.52 H Estimated Creat Clear 21 Estimated GFR 18 L* Est GFR ( Amer) 22 L Glucose 168 H Lactate Calcium 10.4 H Total Bilirubin 0.3 AST 17 ALT 17 Alkaline Phosphatase 73 Ammonia 20 Total Protein 5.4 L Albumin 1.7 L Globulin 3.7 H Albumin/Globulin Ratio 0.5 L Stool Occult Blood Blood Type Antibody Screen Crossmatch ([facility]) 10/09/18 10:45 WBC RBC Hgb Hct MCV MCH MCHC RDW Plt Count MPV Neut % (Auto) Lymph % (Auto) [place] % (Auto) Eos % (Auto) Baso % (Auto) Neut # (Auto) Lymph # (Auto) [place] # (Auto) Eos # (Auto) Baso # (Auto) Total Counted Neutrophils % (Manual) Lymphocytes % (Manual) Monocytes % (Manual) Platelet Estimate RBC Morphology PT INR APTT Sodium Potassium Chloride Carbon Dioxide Anion Gap BUN Creatinine Estimated Creat Clear Estimated GFR Est GFR ( Amer) Glucose Lactate Calcium Total Bilirubin AST ALT Alkaline Phosphatase Ammonia Total Protein Albumin Globulin Albumin/Globulin Ratio Stool Occult Blood Positive A Blood Type Antibody Screen Crossmatch ([facility]) DS: Diagnosis - Discharge Diagnosis (1) Upper GI bleeding Status: Acute (2) Weakness Status: Chronic (3) Acute deep vein thrombosis (DVT) of left lower extremity Status: Acute (4) Congestive heart failure Status: Chronic (5) Gastritis Status: Chronic (6) Hiatal hernia Status: Chronic (7) Hypokalemia Status: Chronic (8) Respiratory tract congestion with cough Status: Chronic (9) Chronic kidney failure Status: Chronic (10) Goiter Status: Chronic (11) History of breast cancer Status: Chronic Discharge Plan - Patient Discharge Instructions Patient Instructions: DI for Pneumonia -- Adult, Gastrointestinal Bleeding - Follow up Plan Follow up with: Ramesh Nix MD [Primary Care Provider] - Disposition: er [facility] Home Medications: Home Medications Medication Instructions Recorded Confirmed Type acetaminophen 325 mg tablet 650 mg PO Q4HP PRN 12/14/17 10/09/18 History atorvastatin 20 mg tablet 20 mg PO HS 30 Days #30 12/14/17 10/09/18 History cholecalciferol (vitamin D3) 2,000 2,000 unit PO DAILY cap 12/14/17 10/09/18 History unit capsule doxazosin 2 mg tablet 2 mg PO HS 30 Days #30 12/14/17 10/09/18 History lansoprazole 15 mg capsule,delayed 15 mg PO DAILY 30 Days #30 12/14/17 10/09/18 History release losartan 100 mg tablet 100 mg PO DAILY 30 Days #30 12/14/17 10/09/18 History memantine 28 mg capsule 28 mg PO DAILY 30 Days #30 12/14/17 10/09/18 History sprinkle,extended release 24hr nadolol 40 mg tablet 40 mg PO DAILY 30 Days #30 12/14/17 10/09/18 History polyethylene glycol 3350 17 17 gm PO DAILY 12/14/17 10/09/18 History gram/dose oral powder potassium chloride ER 10 mEq 10 meq PO DAILY 14 Days #14 12/14/17 10/09/18 History tablet,extended release Ferrous Sulfate [Ferrous Sulfate 325 mg PO DAILY 09/17/18 10/09/18 History 325mg Tablet] Aspirin [Aspirin 325mg Tab] 325 mg PO HS 09/18/18 10/09/18 History Melatonin/Pyridoxine HCl (B6) 1 each PO HSP PRN 09/18/18 10/09/18 History [Melatonin 1 mg Tablet] Furosemide [Lasix 40mg tablet] 40 mg PO BIDL 09/23/18 10/09/18 History Ipratropium/Albuterol Sulfate 3 ml IH TIDRT 09/23/18 10/09/18 History [Duoneb 3mL neb] Carvedilol [Coreg 12.5mg 12.5 mg PO BID 10/09/18 10/09/18 History Tablet] Enoxaparin Sodium [Lovenox 40 mg SQ DAILY 10/09/18 10/09/18 History 40mg/0.4mL syringe] Hydrocodone/Acetaminophen [[place] 1 each PO TID 10/09/18 10/09/18 History 5-325 Tablet] Nystatin [Nystatin Susp 500,000 500,000 unit PO DAILY 10/09/18 10/09/18 History Units/5mL Udc] Potassium Chloride [Klor-Con] 20 meq PO BID 10/09/18 10/09/18 History Potassium Chloride [Klor-con 20 10 meq PO DAILY MDD max 14 days 10/09/18 10/09/18 History mEq tablet] cefTAZidime [Fortaz 2GM Vial] 2 gm IV Q12H 10/09/18 10/09/18 History guaiFENesin [Mucinex 600mg tablet] 600 mg PO BID 10/09/18 10/09/18 History metOLazone [metOLazone 2.5mg 2.5 mg PO DAILY 10/09/18 10/09/18 History Tablet] predniSONE [Prednisone 20mg 20 mg PO DAILY 10/09/18 10/09/18 History Tab] Sucralfate [Sucralfate 1gm 1 gm PO ACHS #120 tab 10/10/18 Rx Tab] Prescriptions/Medication Reconciliation: New Sucralfate [Sucralfate 1gm Tab] 1 gm PO ACHS #120 tab Continue lansoprazole 15 mg capsule,delayed release 15 mg PO DAILY 30 Days #30 nadolol 40 mg tablet 40 mg PO DAILY 30 Days #30 doxazosin 2 mg tablet 2 mg PO HS 30 Days #30 memantine 28 mg capsule sprinkle,extended release 24hr 28 mg PO DAILY 30 Days #30 polyethylene glycol 3350 17 gram/dose oral powder 17 gm PO DAILY cholecalciferol (vitamin D3) 2,000 unit capsule 2,000 unit PO DAILY cap acetaminophen 325 mg tablet 650 mg PO Q4HP PRN PRN Reason: pain losartan 100 mg tablet 100 mg PO DAILY 30 Days #30 Ferrous Sulfate [Ferrous Sulfate 325mg Tablet] 325 mg PO DAILY Aspirin [Aspirin 325mg Tab] 325 mg PO HS Melatonin/Pyridoxine HCl (B6) [Melatonin 1 mg Tablet] 1 each PO HSP PRN PRN Reason: Sleep Furosemide [Lasix 40mg tablet] 40 mg PO BIDL Hydrocodone/Acetaminophen [[place] 5-325 Tablet] 1 each PO TID Nystatin [Nystatin Susp 500,000 Units/5mL Udc] 500,000 unit PO DAILY metOLazone [metOLazone 2.5mg Tablet] 2.5 mg PO DAILY guaiFENesin [Mucinex 600mg tablet] 600 mg PO BID Enoxaparin Sodium [Lovenox 40mg/0.4mL syringe] 40 mg SQ DAILY cefTAZidime [Fortaz 2GM Vial] 2 gm IV Q12H Carvedilol [Coreg 12.5mg Tablet] 12.5 mg PO BID Potassium Chloride [Klor-Con] 20 meq PO BID Ipratropium/Albuterol Sulfate [Duoneb 3mL neb] 3 ml IH TIDRT predniSONE [Prednisone 20mg Tab] 20 mg PO DAILY Discontinued potassium chloride ER 10 mEq tablet,extended release 10 meq PO DAILY 14 Days #14 atorvastatin 20 mg tablet 20 mg PO HS 30 Days #30 Potassium Chloride [Klor-con 20 mEq tablet] 10 meq PO DAILY MDD max 14 days
[2018-10-10 13:56] LABS: Anion Gap 12.7 mEq/L (5-15); Calcium 10.4 mg/dL (8.5-10.1); Potassium 3.7 mmoL/L (3.5-5.1)
== END 2018-10-10 19:00 ==
LOC: 2ND 10:04 → ER 10:04 → 2ND 15:35
PROVIDERS: ADMIT Family Medicine; ATTEND Family Medicine
DX: Z88.0 Allergy status to penicillin; K92.2 Gastrointestinal hemorrhage, unspecified; I11.0 Hypertensive heart disease with heart failure; T45.515A Adverse effect of anticoagulants, initial encounter; E78.5 Hyperlipidemia, unspecified; Z85.3 Personal history of malignant neoplasm of breast; K44.9 Diaphragmatic hernia without obstruction or gangrene; Z86.718 Personal history of other venous thrombosis and embolism; Z86.79 Personal history of other diseases of the circulatory system; Z95.0 Presence of cardiac pacemaker; E87.6 Hypokalemia; Z87.01 Personal history of pneumonia (recurrent); I50.9 Heart failure, unspecified; N18.9 Chronic kidney disease, unspecified; E04.9 Nontoxic goiter, unspecified; I82.402 Acute embolism and thrombosis of unspecified deep veins of left lower extremity; R53.1 Weakness; Z79.899 Other long term (current) drug therapy
CPT/HCPCS: 36415; 74021; 74022; 80048; 80053; 82140; 82272; 83605; 85007; 85014; 85018; 85025; 85610; 85730; 86850; 87040; 94640; 94761; 96365; 96367; 96375; 99284; G0328; G0378; J1956